=== PATIENT | male | born 1950 | race Caucasian/White ===

== ENCOUNTER 2017-07-29 10:16 | Emergency (ER) | payer OTHER, MEDICARE ==
--- NOTE | 2017-07-29 11:13 | RAD ---
RADIOGRAPH CHEST 1 VIEW: HISTORY: 67-year-old male with chest pain. Discharge of AICD. FINDINGS: There is cardiomegaly. There is no evidence of air space density, pulmonary edema, or pneumothorax. T he lateral costophrenic angles are sharp. IMPRESSION: 1) No acute pulmonary findings. 2) Cardiomegaly without congestive heart failure. 3) Signs of previous coronary artery bypass graft surgery is evidence for coronary atherosclerotic di sease. 4) Multi-lead left subclavian automatic implantable cardioverter/defibrillator. 5) No interval change overall since 10-31-15. POS: Chery
[2017-07-29 11:23] LABS: #Eosinphils 0.4 thou/uL (0.0-0.7); #Lymphocytes 1.8 thou/uL (1.20-3.40); #Monocytes 0.4 thou/uL (0.11-0.59); #Neutrophils 4.9 thou/uL (1.40-6.50); %Basophils 0.5 % (0.0-1.0); %Eosinophils 5.9 % (0.0-10.0); %Lymphocytes 23.5 % (21.0-51.0); %Monocytes 5.7 % (0.0-10.0); Mean Platelet Volume 10.1 fL (7.4-10.4); White Blood Cell (WBC) Count 7.6 thou/uL (4.8-10.8)
[2017-07-29 11:30] LABS: PTT 27.7 SEC (22.9-36.1); Prothrombin Time 12.5 SEC (12.0-14.7)
[2017-07-29 11:50] LABS: Troponin I 0.019 ng/mL (< 0.028)
[2017-07-29 12:00] LABS: Digoxin Less than 0.15 ng/mL (0.8-2.0)
[2017-07-29 12:01] LABS: ALT (SGPT) 22 U/L (8-55); AST (SGOT) 19 U/L (5-34); Alkaline Phosphatase 82 U/L (40-150); Anion Gap 14 mmol/L (10-20); BUN (Urea Nitrogen) 22 mg/dL (8.4-25.7); Bilirubin, Total 0.3 mg/dL (0.2-1.2); CK (CPK) 91 U/L (30-200); Calc. Creatinine Clearance 0 mL/min (70-130); Carbon Dioxide 23 mmol/L (23-31); Chloride 104 mmol/L (98-107); Estimated GFR-MDRD 53; Globulin 3.2 g/dL (2.4-3.5); Lipase 51 U/L (8-78)
== END 2017-07-29 14:24 | disposition home or self-care (01) ==
LOC: ERS 10:16
DX: T82.897A Other specified complication of cardiac prosthetic devices, implants and grafts, initial encounter (principal); E11.9 Type 2 diabetes mellitus without complications; E78.2 Mixed hyperlipidemia; I10 Essential (primary) hypertension; I73.9 Peripheral vascular disease, unspecified; F17.290 Nicotine dependence, other tobacco product, uncomplicated; Z79.84 Long term (current) use of oral hypoglycemic drugs; Z79.82 Long term (current) use of aspirin; Z79.899 Other long term (current) drug therapy
CPT/HCPCS: 36415; 71010; 80053; 80162; 82550; 82553; 83690; 84484; 85025; 85610; 85730; 93005; 94760

== ENCOUNTER 2017-08-19 08:20 | Day surgery (SDC) | payer OTHER, MEDICARE ==
[2017-08-18 16:33] VITALS: BMI 28.3
[2017-08-19 09:46] LABS: #Eosinphils 0.2 thou/uL (0.0-0.7); #Lymphocytes 1.4 thou/uL (1.20-3.40); #Monocytes 0.5 thou/uL (0.11-0.59); #Neutrophils 4.8 thou/uL (1.40-6.50); %Basophils 0.3 % (0.0-1.0); %Eosinophils 3.2 % (0.0-10.0); %Lymphocytes 20.2 % (21.0-51.0); %Monocytes 7.6 % (0.0-10.0); Hematocrit 42.5 % (42.0-52.0); Mean Platelet Volume 8.5 fL (7.4-10.4); Red Blood Cell (RBC) Count 4.43 mill/uL (4.70-6.10); White Blood Cell (WBC) Count 6.9 thou/uL (4.8-10.8)
[2017-08-19 09:57] LABS: PTT 28.4 SEC (22.9-36.1)
[2017-08-19] MEDS ORDERED: CEFAZOLIN/Water 2 GM/20 ML SYRINGE ONE (10:36)
[2017-08-19] MEDS ORDERED: Midazolam HCl 2 mg/2 ml Vial ONE (11:40)
[2017-08-19] MEDS ORDERED: Fentanyl 100 MCG/2 ML VIAL ONE (11:45)
--- NOTE | 2017-08-22 12:23 | EKG ---
Test Reason : PREOP Blood Pressure : / mmHG Vent. Rate : 071 BPM Atrial Rate : 071 BPM P-R Int : 184 ms QRS Dur : 204 ms QT Int : 550 ms P-R-T Axes : 077 -40 108 degrees QTc Int : 597 ms AV sequential or dual chamber electronic pacemaker When compared with ECG of 29-JUL-2017 10:26, (Unconfirmed) Vent. rate has decreased BY 7 BPM Confirmed by GREG CHOUDHARY ([id number]) on 08/22/2017 12:23:29 PM Referred By: GAB Confirmed By:GREG CHOUDHARY
== END 2017-08-19 13:44 | disposition home or self-care (01) ==
LOC: SDC 08:20
PROVIDERS: ATTEND Internal Medicine Cardiovascular Disease
DX: I13.0 Hypertensive heart and chronic kidney disease with heart failure and stage 1 through stage 4 chronic kidney disease, or unspecified chronic kidney disease (principal); I50.22 Chronic systolic (congestive) heart failure; E11.22 Type 2 diabetes mellitus with diabetic chronic kidney disease; N18.3 Chronic kidney disease, stage 3 (moderate); F17.210 Nicotine dependence, cigarettes, uncomplicated; Z79.02 Long term (current) use of antithrombotics/antiplatelets; Z79.82 Long term (current) use of aspirin; Z79.4 Long term (current) use of insulin; Z79.899 Other long term (current) drug therapy; Z95.0 Presence of cardiac pacemaker; Z95.1 Presence of aortocoronary bypass graft; Z98.890 Other specified postprocedural states
CPT/HCPCS: 33264; 85025; 85610; 85730; 93005; 93010; C1882; J2250; J3010; J3490

== ENCOUNTER 2018-01-31 20:30 | Outpatient (CLI) | payer MEDICARE, OTHER | END 2018-01-31 20:31 | disposition home or self-care (01) | LOC: SLEEPLAB 20:30 | PROVIDERS: ATTEND Internal Medicine Critical Care Medicine | DX: G47.33 Obstructive sleep apnea (adult) (pediatric) (principal); G47.31 Primary central sleep apnea; I21.9 Acute myocardial infarction, unspecified; I25.10 Atherosclerotic heart disease of native coronary artery without angina pectoris; I11.0 Hypertensive heart disease with heart failure; I50.9 Heart failure, unspecified | CPT/HCPCS: 95810 ==

== ENCOUNTER 2018-05-31 20:30 | Outpatient (CLI) | payer MEDICARE, OTHER | END 2018-05-31 20:31 | disposition home or self-care (01) | LOC: SLEEPLAB 20:30 | PROVIDERS: ATTEND Internal Medicine Critical Care Medicine | DX: G47.33 Obstructive sleep apnea (adult) (pediatric) (principal); G47.31 Primary central sleep apnea | CPT/HCPCS: 95806 ==

== ENCOUNTER 2018-11-21 12:44 | Emergency (ER) | payer MEDICARE, OTHER ==
--- NOTE | 2018-11-21 14:05 | RAD ---
FPortable chest radiograph: 11/21/2018 COMPARISON: 07/29/2017 HISTORY: Lightheaded FINDINGS: Calcification in the region of the coracoclavicular interspace on the right suggests prior injury, stable. Midline sternotomy wires and mediastinal clips are present. Stable multilead AICD pre sent. Stable prominence of the cardiac silhouette. No pneumothorax, pleural fluid, focal consolidatio n, or alveolar edema. IMPRESSION: Chronic findings as detailed above. No focal consolidation or alveolar edema.
[2018-11-21 14:09] LABS: #Eosinphils 0.3 thou/uL (0.0-0.7); #Lymphocytes 1.6 thou/uL (1.20-3.40); #Monocytes 0.4 thou/uL (0.11-0.59); #Neutrophils 4.2 thou/uL (1.40-6.50); %Basophils 0.2 % (0.0-1.0); %Eosinophils 4.2 % (0.0-10.0); %Lymphocytes 24.7 % (21.0-51.0); %Monocytes 6.6 % (0.0-10.0); %Neutrophils 64.3 % (42.0-75.0); Hemoglobin 13.8 g/dL (14.0-18.0); Mean Corpuscular HGB CONC 34.1 g/dL (32.0-36.0); Mean Corpuscular Hemoglobin 31.8 pg (27.0-31.0); Mean Corpuscular Volume 93.2 fL (78.0-98.0); Mean Platelet Volume 8.9 fL (7.4-10.4); Platelet Count 113 thou/uL (130-400); Red Blood Cell (RBC) Count 4.33 mill/uL (4.70-6.10); White Blood Cell (WBC) Count 6.6 thou/uL (4.8-10.8)
[2018-11-21 14:14] LABS: INR-International Normal Ratio 1.1
[2018-11-21 14:27] LABS: ALT (SGPT) 34 U/L (8-55); AST (SGOT) 50 U/L (5-34); Albumin 4.1 g/dL (3.4-4.8); Alkaline Phosphatase 59 U/L (40-150); Anion Gap 13 mmol/L (10-20); BUN (Urea Nitrogen) 29 mg/dL (8.4-25.7); Bilirubin, Total 0.8 mg/dL (0.2-1.2); Calc. Creatinine Clearance 0 mL/min (70-130); Carbon Dioxide 26 mmol/L (23-31); Chloride 102 mmol/L (98-107); Estimated GFR-MDRD 41; Globulin 2.7 g/dL (2.4-3.5); Glucose 222 mg/dL (80-115); Protein, Total 6.8 g/dL (5.8-8.1); Sodium 137 mmol/L (136-145)
[2018-11-21 14:40] LABS: Bilirubin Negative (Negative); Blood, Urine Negative (Negative); Clarity CLEAR (Clear); Glucose, Urine (Dipstick) Negative (Negative); Leukocyte Negative (Negative); Nitrite Negative (Negative); Protein, Urine (Dipstick) Negative (Neg-Trace); Specific Gravity, Urine 1.009 (1.002-1.036); Urobilinogen 0.2 mg/dL (0.2-1.0)
== END 2018-11-21 17:50 | disposition home or self-care (01) ==
LOC: ERS 12:44
DX: R55 Syncope and collapse (principal); E11.9 Type 2 diabetes mellitus without complications; E78.2 Mixed hyperlipidemia; I10 Essential (primary) hypertension; F17.210 Nicotine dependence, cigarettes, uncomplicated; Z79.899 Other long term (current) drug therapy; Z79.82 Long term (current) use of aspirin; Z79.4 Long term (current) use of insulin
CPT/HCPCS: 71045; 80053; 81003; 83880; 84484; 85025; 85610; 85730; 93005

== ENCOUNTER 2018-12-20 18:37 | Observation (INO) | payer MEDICARE, OTHER ==
[2018-12-20 19:52] VITALS: BMI 28.2
[2018-12-20 20:52] LABS: #Eosinphils 0.3 thou/uL (0.0-0.7); #Monocytes 0.5 thou/uL (0.11-0.59); #Neutrophils 3.4 thou/uL (1.40-6.50); %Basophils 0.7 % (0.0-1.0); %Eosinophils 4.4 % (0.0-10.0); %Monocytes 7.6 % (0.0-10.0); %Neutrophils 55.2 % (42.0-75.0); Hemoglobin 13.4 g/dL (14.0-18.0); Mean Corpuscular HGB CONC 34.7 g/dL (32.0-36.0); Mean Corpuscular Hemoglobin 32.4 pg (27.0-31.0); Mean Corpuscular Volume 93.5 fL (78.0-98.0); Platelet Count 116 thou/uL (130-400); RBC Distribution Width 14.3 % (11.5-14.5); Red Blood Cell (RBC) Count 4.12 mill/uL (4.70-6.10); White Blood Cell (WBC) Count 6.2 thou/uL (4.8-10.8)
[2018-12-20] MEDS ORDERED: HYDROcodone/Acetaminophen 5/325 mg Tablet PO PRN (21:04)
[2018-12-20] MEDS ORDERED: Ondansetron PF 4 MG/2 ML Vial SLOW IVP PRN (21:04)
[2018-12-20] MEDS ORDERED: Milk Of Magnesia 30 ML UDCUP PO PRN (21:04)
[2018-12-20] MEDS ORDERED: Acetaminophen 325 MG TAB PO PRN (21:04)
[2018-12-20] MEDS ORDERED: Fleet Enema 133 ML BOT PR PRN (21:04)
[2018-12-20 21:08] LABS: Anion Gap 13 mmol/L (10-20); BUN (Urea Nitrogen) 26 mg/dL (8.4-25.7); Calc. Creatinine Clearance 44 mL/min (70-130); Carbon Dioxide 26 mmol/L (23-31); Chloride 105 mmol/L (98-107); Estimated GFR-MDRD 38; Glucose 263 mg/dL (80-115); Potassium 3.8 mmol/L (3.5-5.1); Sodium 140 mmol/L (136-145)
[2018-12-20] MEDS: Sodium Chloride 0.9% 1,000 ML IV SCH (21:42)
[2018-12-20] MEDS: HYDROcodone/Acetaminophen 5/325 mg Tablet PO PRN (21:42)
[2018-12-21] MEDS: Sodium Chloride 0.9% 1,000 ML IV SCH ×2 (07:04→18:26)
[2018-12-21 07:11] LABS: #Basophils 0.1 thou/uL (0.0-0.2); #Eosinphils 0.2 thou/uL (0.0-0.7); #Lymphocytes 1.8 thou/uL (1.20-3.40); #Monocytes 0.4 thou/uL (0.11-0.59); #Neutrophils 2.5 thou/uL (1.40-6.50); %Basophils 1.1 % (0.0-1.0); %Eosinophils 4.7 % (0.0-10.0); %Neutrophils 50.2 % (42.0-75.0); Hemoglobin 12.5 g/dL (14.0-18.0); Mean Corpuscular HGB CONC 33.8 g/dL (32.0-36.0); Mean Corpuscular Hemoglobin 31.5 pg (27.0-31.0); Mean Corpuscular Volume 93.5 fL (78.0-98.0); Mean Platelet Volume 8.4 fL (7.4-10.4); Platelet Count 107 thou/uL (130-400); RBC Distribution Width 14.2 % (11.5-14.5); Red Blood Cell (RBC) Count 3.97 mill/uL (4.70-6.10)
[2018-12-21 07:18] LABS: Anion Gap 12 mmol/L (10-20); BUN (Urea Nitrogen) 25 mg/dL (8.4-25.7); Calc. Creatinine Clearance 51 mL/min (70-130); Calcium 8.5 mg/dL (7.8-10.44); Carbon Dioxide 26 mmol/L (23-31); Chloride 109 mmol/L (98-107); Estimated GFR-MDRD 44; Glucose 137 mg/dL (80-115); Potassium 3.6 mmol/L (3.5-5.1); Sodium 143 mmol/L (136-145)
[2018-12-21] MEDS ORDERED: Fentanyl 100 MCG/2 ML VIAL ONE ×2 (07:36→10:11)
[2018-12-21] MEDS ORDERED: Midazolam HCl 2 mg/2 ml Vial ONE (07:37)
[2018-12-21] MEDS ORDERED: Heparin 10,000 UNITS/1 ML VIAL ONE (08:37)
[2018-12-21] MEDS ORDERED: Famotidine/PF 20 mg/2ml Vial SLOW IVP SCH (09:00)
--- NOTE | 2018-12-21 10:29 | OP ---
DATE OF PROCEDURE: 12/21/2018 PREPROCEDURE DIAGNOSIS: Resting pain with severe peripheral vascular disease. POSTPROCEDURE DIAGNOSIS: Resting pain with severe peripheral vascular disease. PROCEDURE PERFORMED: 1. Aortogram. 2. Unilateral aortofemoral runoff. 3. 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 COMPLICATIONS: None. ESTIMATED BLOOD LOSS: Less than 20 mL. TOTAL SEDATION TIME: 40 minutes. DESCRIPTION OF PROCEDURE: The patient was brought one day prior to the procedure for hydration. His initial creatinine was 1.8. After hydration, creatinine decreased to 1.5. The patient was draped and prepped in sterile fashion. Access obtained to right femoral artery under ultrasound guidance. Micropuncture sheath could not be placed due to previous endarterectomy. A radial sheath was then placed successfully. After the Contra catheter was performed (aortogram), a RIM catheter was used to access the contralateral segment. 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 Right lower extremity-the common iliac artery has a stent placed. It is patent. The vessel in the distal common iliac and external iliac appear small. Left lower extremity-there is a stent placed in the common iliac artery. There is stenosis present estimated 50% distal to the previously placed stent on the left. There is otherwise less than 50% stenosis with external iliac and common femoral artery. There was heavy calcification with a very small SFA present and diffuse disease estimated to 70%-100% within the SFA. There was heavy calcification. There was one vessel runoff to the foot via the posterior tibial artery. I discussed case with Dr. Joe Velazquez. He had performed a femoral-popliteal bypass in the past. After noting a gradient just distal to the stented area estimated at 20 mmHg, it was decided that the SFA was too small and too diffusely diseased to proceed with intervention which would include atherectomy. It was decided to proceed with improving the inflow and discussing femoral-popliteal bypass as an outpatient. Heparin was given for anticoagulation. A six-Telugu destination sheath was placed successfully into the contralateral segment. Predilatation performed with a 6 x 40 mm [place] balloon catheter. One inflation performed. This was removed and replaced with an 8 x 40 mm Innova self expanding stent. Previously placed stent was a 10 mm diameter stent in 2006. The vessel did not appear to be 8-9 mm in diameter. The recent stent placed two years ago was an 8 mm stent in a similar region on the contralateral segment. This was successfully deployed. Postdilatation performed with a 6 x 40 mm [place] balloon catheter. This was removed and replaced with a 7 x 30 mm [place] balloon catheter. One inflation performed in the proximal segment of the recently placed stent. There appeared to be excellent apposition with excellent outflow. Job ID: [id number]
[2018-12-21] MEDS: HYDROcodone/Acetaminophen 5/325 mg Tablet PO PRN ×2 (13:34→18:25)
[2018-12-21 15:38] VITALS: BP 113/57; TEMP 97.8
--- NOTE | 2018-12-21 17:34 | DIS ---
DATE OF ADMISSION: 12/20/2018 DATE OF DISCHARGE: 12/21/2018 DISCHARGE DIAGNOSIS: Severe peripheral vascular disease. PROCEDURES: 1. Aortofemoral runoff unilaterally. 2. Aortogram. 3. Successful stent placement to the left common iliac artery with an 8 x 40 mm self-expanding stent post dilated with a 7 x 30 mm [place] balloon catheter. COMPLICATIONS: None. HOSPITAL COURSE: The patient was admitted 1 day prior to procedure for hydration. His initial creatinine was 1.8. On the day of his procedure, his creatinine was decreased to 1.5. The procedure was performed on 12/21/2018. He was found to have severe PAD. The SFA and popliteal artery were not amenable to percutaneous intervention due to diffuse disease present and small vessel. There was a 15- to 20-mm gradient in the common iliac artery. I did discuss case with Dr. Joe Velazquez, who reviewed the films with me. We decided to proceed with stent implantation for better inflow and potential fem-pop bypass in the future. This was performed successfully. The patient received a total of 55 mL of contrast. DISCHARGE MEDICATIONS: 1. Glipizide as prescribed. 2. Torsemide as prescribed. 3. Entresto. 4. Potassium. 5. Nitroglycerin patch. 6. Multivitamin. 7. Insulin as prescribed. 8. Neurontin 300 b.i.d. 9. Fish oil 1000 mg q.a.m. 10. Zetia 10 mg daily. 11. Plavix 75 daily. 12. Coreg 12.5 mg b.i.d. 13. Aspirin 81 daily. 14. Amiodarone 200 mg daily. CONDITION ON DISCHARGE: Stable. Job ID: [id number]
== END 2018-12-21 18:49 | disposition home or self-care (01) ==
LOC: SDC/OP 18:37 → 2SW 19:45 → INTOOBSV 19:45
PROVIDERS: ADMIT Internal Medicine Cardiovascular Disease; ATTEND Internal Medicine Cardiovascular Disease
PROC: 047D3DZ Dilation of Left Common Iliac Artery with Intraluminal Device, Percutaneous Approach (ICD-10-PCS; principal; 2018-12-21)
DX: I70.222 Atherosclerosis of native arteries of extremities with rest pain, left leg (principal); I71.9 Aortic aneurysm of unspecified site, without rupture; Z95.820 Peripheral vascular angioplasty status with implants and grafts; Z79.84 Long term (current) use of oral hypoglycemic drugs; Z79.4 Long term (current) use of insulin; Z79.02 Long term (current) use of antithrombotics/antiplatelets; Z79.82 Long term (current) use of aspirin; Z79.899 Other long term (current) drug therapy
CPT/HCPCS: 37221; 76942; 80048 ×2; 85025 ×2; 85347 ×2; 96360; 96361 ×2; C1725; C1769; G0378; G0379; 36415; 99152; 99153; J1644; J2250; J3010; Q9967

== ENCOUNTER 2019-01-15 10:00 | Inpatient (IN) | payer MEDICARE, OTHER ==
[2019-01-15 10:58] LABS: Hemoglobin 12.3 g/dL (14.0-18.0); Mean Corpuscular HGB CONC 33.5 g/dL (32.0-36.0); Mean Corpuscular Hemoglobin 31.4 pg (27.0-31.0); Mean Corpuscular Volume 93.7 fL (78.0-98.0); Mean Platelet Volume 8.1 fL (7.4-10.4); Platelet Count 132 thou/uL (130-400); RBC Distribution Width 14.1 % (11.5-14.5); White Blood Cell (WBC) Count 8.2 thou/uL (4.8-10.8)
[2019-01-15 11:17] LABS: Anion Gap 14 mmol/L (10-20); BUN (Urea Nitrogen) 38 mg/dL (8.4-25.7); Calc. Creatinine Clearance 0 mL/min (70-130); Calcium 9.4 mg/dL (7.8-10.44); Carbon Dioxide 27 mmol/L (23-31); Chloride 104 mmol/L (98-107); Estimated GFR-MDRD 36; Glucose 237 mg/dL (80-115); Potassium 4.9 mmol/L (3.5-5.1); Sodium 140 mmol/L (136-145)
[2019-01-16] MEDS ORDERED: Heparin 5,000 UNITS/ML VIAL ONE (12:03)
[2019-01-16] MEDS ORDERED: Protamine Sulfate 50 MG/5 ML VIAL ONE (12:03)
[2019-01-16] MEDS ORDERED: ePHEDrine 50 MG/ML VIAL ONE (13:32)
[2019-01-16] MEDS ORDERED: Calcium Chloride 1 GM/10 ML Abboject SYRINGE ONE (13:32)
[2019-01-16] MEDS ORDERED: Heparin 10,000 UNITS/ 10 ML VIAL ONE (13:32)
[2019-01-16] MEDS ORDERED: Ondansetron PF 4 MG/2 ML Vial ONE (13:32)
[2019-01-16] MEDS ORDERED: PROPOFOL 200 MG/20 ML VIAL ONE (13:32)
[2019-01-16] MEDS ORDERED: Rocuronium Bromide 10 MG/ML (10ML VIAL) ONE (13:32)
[2019-01-16] MEDS ORDERED: PHENYLEPHRINE-NS 100 MCG/ML 10 ML SYRINGE ONE (13:32)
[2019-01-16] MEDS ORDERED: Glycopyrrolate 0.2 MG/ML 5 ML SYRINGE ONE (13:32)
[2019-01-16] MEDS ORDERED: Fentanyl 100 MCG/2 ML VIAL ONE ×3 (15:06→18:09)
[2019-01-16] MEDS ORDERED: Acetaminophen 325 MG TAB PO PRN (18:48)
[2019-01-16] MEDS ORDERED: Sodium Chloride 0.9% 1,000 ML IV SCH (18:48)
[2019-01-16] MEDS ORDERED: DOPamine 400 MG/D5W 250 ML 250 ML IVPB PRN (18:48)
[2019-01-16] MEDS ORDERED: Fentanyl 100 MCG/2 ML VIAL SLOW IVP PRN (18:48)
[2019-01-16] MEDS ORDERED: traMADol HCl 50 MG TAB PO PRN (18:48)
[2019-01-16] MEDS ORDERED: Ondansetron PF 4 MG/2 ML Vial IVP PRN (18:48)
[2019-01-16] MEDS ORDERED: Nitroglycerin 50 MG/250 ML BOT 250 ML IVPB PRN (18:48)
[2019-01-16] MEDS ORDERED: ALPRAZolam 0.25 MG TAB PO PRN (18:48)
[2019-01-16 18:54] VITALS: BMI 28.2
[2019-01-16] MEDS: CEFAZOLIN 2 GM in Premix Bag 1 BAG IVPB SCH (19:23)
[2019-01-16] MEDS: Carvedilol 6.25 MG TAB PO SCH (20:11)
[2019-01-16] MEDS: Sacubitril 49 MG/Valsartan 51 MG TABLET PO SCH (20:12)
[2019-01-16] MEDS: Gabapentin 300 MG CAP PO SCH (20:12)
--- NOTE | 2019-01-17 00:21 | OP ---
DATE OF PROCEDURE: 01/16/2019 PREOPERATIVE DIAGNOSIS: Ischemic rest pain with gangrene, left foot. POSTOPERATIVE DIAGNOSIS: Ischemic rest pain with gangrene, left foot. PROCEDURE PERFORMED: Left common and profunda femoral endarterectomy with bovine patch angioplasty, left femoral to infrageniculate popliteal artery bypass with in-situ saphenous vein. ANESTHESIA: General. ESTIMATED BLOOD LOSS: 300 mL. DESCRIPTION OF PROCEDURE: After adequate anesthesia had been obtained, the patient had an ultrasound of his leg performed, following which he was prepped and draped. Endovascular vein harvest of the left greater saphenous vein was performed. Following this, popliteal artery was isolated below the knee through a medial leg incision. The groin incision was then made mobilizing the proximal saphenous vein, dividing it at its junction with the common femoral vein and oversewing it with a 5-0 Prolene suture. The vein was then distended. Branches secured and valvulotome passed. Following this, the patient was heparinized, and the common femoral artery was exposed up to the inguinal ligament and then the external iliac artery. The profunda femoral artery to its first set of branches was mobilized, and all of these vessels were very calcified. After heparinization, a clamp was applied to the external iliac artery into the profunda branches. The long arteriotomy was performed. There was one posterior profunda branch, which was bleeding, and this was clamped. Endarterectomy was then performed dividing the plaque proximally at the inguinal ligament and then bring the plaque up completely into the profunda femoral artery. The area was irrigated, and a bovine patch used to close the arteriotomy. Incision was made in the anterior aspect of the patch, and the saphenous vein proximal end was anastomosed here. Flow was then restored in the groin, and the wound packed. The vein was then brought through its tunnel and then passed posterior to the knee through a separate tunnel, which had been created there. The distal anastomosis was then performed to the popliteal artery, where it was soft with palpable calcification distally as expected from the preoperative evaluation. Following completion of this anastomosis, the clamps were removed. Protamine was given systemically to reverse the heparin, and after obtaining good hemostasis, the wounds were all closed in layers. The patient tolerated the procedure well and was to be taken to the recovery room in guarded condition. Job ID: [id number]
[2019-01-17] MEDS: CEFAZOLIN 2 GM in Premix Bag 1 BAG IVPB SCH (04:30)
[2019-01-17 06:17] LABS: #Lymphocytes 0.9 thou/uL (1.20-3.40); #Monocytes 0.4 thou/uL (0.11-0.59); #Neutrophils 7.6 thou/uL (1.40-6.50); %Eosinophils 0.1 % (0.0-10.0); %Lymphocytes 10.3 % (21.0-51.0); %Monocytes 4.5 % (0.0-10.0); %Neutrophils 85.1 % (42.0-75.0); Hemoglobin 10.9 g/dL (14.0-18.0); Mean Corpuscular Hemoglobin 30.8 pg (27.0-31.0); Mean Corpuscular Volume 93.3 fL (78.0-98.0); Mean Platelet Volume 8.3 fL (7.4-10.4); Platelet Count 140 thou/uL (130-400); RBC Distribution Width 14.1 % (11.5-14.5); Red Blood Cell (RBC) Count 3.55 mill/uL (4.70-6.10)
[2019-01-17 06:36] LABS: Anion Gap 14 mmol/L (10-20); BUN (Urea Nitrogen) 33 mg/dL (8.4-25.7); Calc. Creatinine Clearance 45 mL/min (70-130); Carbon Dioxide 25 mmol/L (23-31); Chloride 105 mmol/L (98-107); Estimated GFR-MDRD 39; Glucose 310 mg/dL (80-115); Potassium 4.3 mmol/L (3.5-5.1); Sodium 140 mmol/L (136-145)
[2019-01-17] MEDS ORDERED: glipiZIDE 10 MG TAB PO SCH (07:30)
[2019-01-17 07:43] VITALS: TEMP 98.2
[2019-01-17] MEDS: Carvedilol 6.25 MG TAB PO SCH (08:35)
[2019-01-17] MEDS: Gabapentin 300 MG CAP PO SCH (08:35)
[2019-01-17] MEDS: Sacubitril 49 MG/Valsartan 51 MG TABLET PO SCH (08:37)
[2019-01-17] MEDS ORDERED: Ezetimibe 10 MG TAB PO SCH (09:00)
[2019-01-17] MEDS ORDERED: Torsemide 20 MG TAB PO SCH (09:00)
[2019-01-17] MEDS ORDERED: Aspirin Chewable 81 MG TAB PO SCH (09:00)
[2019-01-17] MEDS ORDERED: Amiodarone 200 MG TAB PO SCH (09:00)
[2019-01-17] MEDS ORDERED: Potassium Chloride 10 MEQ TAB PO SCH (09:00)
[2019-01-17] MEDS ORDERED: DULoxetine 30 MG CAP PO SCH (09:00)
[2019-01-17] MEDS ORDERED: Clopidogrel Bisulfate 75 MG TAB PO SCH (09:00)
[2019-01-17] MEDS ORDERED: Clopidogrel Bisulfate 75 MG TAB ONE (09:58)
[2019-01-17 11:11] VITALS: BP 116/59
--- NOTE | 2019-01-18 05:41 | DIS ---
DATE OF ADMISSION: 01/16/2019 DATE OF DISCHARGE: 01/17/2019 HOSPITAL COURSE: The patient was brought into the hospital yesterday for a left femoral-popliteal bypass with left common and profunda femoral endarterectomy. His postoperative course was uneventful. His hemoglobin dropped from about 12 to 11. His creatinine remained stable in the 1.75 to 1.9 range. He was having minimal pain with a good Doppler signal in his graft. His foot had improved appearance. He had minimal discomfort. He will be discharged home with wound care instructions and resume home medications. No prescriptions. Job ID: [id number]
== END 2019-01-17 11:10 | disposition home or self-care (01) | DRG 254 ==
LOC: SURG A 01-16 09:46 → CCU 01-16 18:33
PROVIDERS: ADMIT Thoracic Surgery (Cardiothoracic Vascular Surgery); ATTEND Thoracic Surgery (Cardiothoracic Vascular Surgery)
PROC: 04CL0ZZ Extirpation of Matter from Left Femoral Artery, Open Approach (ICD-10-PCS; principal; 2019-01-16)
PROC: 04UL0KZ Supplement Left Femoral Artery with Nonautologous Tissue Substitute, Open Approach (ICD-10-PCS; 2019-01-16)
PROC: 041L09L Bypass Left Femoral Artery to Popliteal Artery with Autologous Venous Tissue, Open Approach (ICD-10-PCS; 2019-01-16)
DX: I70.268 Atherosclerosis of native arteries of extremities with gangrene, other extremity (principal); Z95.1 Presence of aortocoronary bypass graft
CPT/HCPCS: 36416; 80048; 85025; 85027; 86850; 86900; 86901; J0690; J1642; J1644; J2405; J2704; J2720; J3010; J3490

== ENCOUNTER 2019-01-29 18:28 | Inpatient (IN) | payer MEDICARE, OTHER ==
[~2019-01-29 18:28] MED LIST: Heparin 1,000 UNITS/ML VIAL ONE
[2019-01-29] MEDS ORDERED: cefTRIAXone\\ROCEPHIN 1 GM VIAL ONE (19:14)
[2019-01-29] MEDS ORDERED: Acetaminophen 500 MG TAB ONE (19:14)
[2019-01-29] MEDS ORDERED: Sodium Chloride 0.9% 100 ML ONE (19:14)
[2019-01-29 19:40] LABS: #Eosinphils 0.1 thou/uL (0.0-0.7); #Lymphocytes 0.7 thou/uL (1.20-3.40); #Monocytes 0.4 thou/uL (0.11-0.59); #Neutrophils 5.9 thou/uL (1.40-6.50); %Basophils 0.4 % (0.0-1.0); %Eosinophils 1.1 % (0.0-10.0); %Lymphocytes 9.8 % (21.0-51.0); %Neutrophils 82.7 % (42.0-75.0); Mean Corpuscular HGB CONC 33.5 g/dL (32.0-36.0); Mean Corpuscular Hemoglobin 30.9 pg (27.0-31.0); Platelet Count 153 thou/uL (130-400); RBC Distribution Width 14.9 % (11.5-14.5); Red Blood Cell (RBC) Count 2.93 mill/uL (4.70-6.10); White Blood Cell (WBC) Count 7.1 thou/uL (4.8-10.8)
[2019-01-29] MEDS ORDERED: Piperacillin/Tazobactam 4.5 GM VIAL ONE (19:49)
[2019-01-29 20:01] LABS: ALT (SGPT) 20 U/L (8-55); AST (SGOT) 18 U/L (5-34); Albumin 3.4 g/dL (3.4-4.8); Alkaline Phosphatase 65 U/L (40-150); Anion Gap 16 mmol/L (10-20); BUN (Urea Nitrogen) 41 mg/dL (8.4-25.7); Bilirubin, Total 0.6 mg/dL (0.2-1.2); Calc. Creatinine Clearance 0 mL/min (70-130); Calcium 8.7 mg/dL (7.8-10.44); Carbon Dioxide 23 mmol/L (23-31); Chloride 99 mmol/L (98-107); Estimated GFR-MDRD 33; Globulin 2.9 g/dL (2.4-3.5); Glucose 341 mg/dL (80-115); Potassium 3.8 mmol/L (3.5-5.1); Protein, Total 6.3 g/dL (5.8-8.1); Sodium 134 mmol/L (136-145)
[2019-01-29 21:14] LABS: Bilirubin Negative (Negative); Blood, Urine Negative (Negative); Clarity CLEAR (Clear); Glucose, Urine (Dipstick) 100 mg/dL (Negative); Leukocyte Negative (Negative); Nitrite Negative (Negative); Protein, Urine (Dipstick) Negative (Neg-Trace); Specific Gravity, Urine 1.014 (1.002-1.036); Urobilinogen 0.2 mg/dL (0.2-1.0); pH, Urine 5.5 (5.0-9.0)
--- NOTE | 2019-01-29 21:28 | RAD ---
AP VIEW CHEST: HISTORY: Fever. COMPARISON: 11/21/2018. TECHNIQUE: AP view chest is obtained. FINDINGS: AP view chest demonstrates cardiomegaly. Sternotomy wires and mediastinal surgical clips are seen. There is a dual-lead intracardiac defibrillator. no acute intrathoracic abnormalities noted. IMPRESSION: Cardiomegaly. POS: FFK
--- NOTE | 2019-01-29 21:43 | RAD ---
LEFT FOOT THREE VIEWS: HISTORY: Gangrene. TECHNIQUE: AP, lateral, and oblique views of the left foot obtained. FINDINGS: Images demonstrate no evidence of left foot fractures, subluxations, or bony lesions. IMPRESSION: Normal three views left foot. POS: FFK
[2019-01-29 23:31] LABS: Lactic Acid 1.6 mmol/L (0.5-2.2)
[2019-01-29] MEDS ORDERED: Acetaminophen 325 MG TAB PO PRN (23:59)
[2019-01-29] MEDS ORDERED: Dextrose 5% in Water 1,000 ML IV PRN (23:59)
[2019-01-29] MEDS ORDERED: HumaLOG 300 UNITS/3 ML VIAL SC PRN (23:59)
[2019-01-29] MEDS ORDERED: Dextrose 50% Abboject 50 ML SYRINGE SLOW IVP PRN (23:59)
[2019-01-29] MEDS ORDERED: hydrALAZINE 20 MG/ML VIAL SLOW IVP PRN (23:59)
[2019-01-30 00:20] VITALS: BMI 27.6
[2019-01-30] MEDS: Piperacillin/Tazobactam 2.25 GM in Sodium Chloride 0.9% 100 ML IVPB SCH ×4 (01:55→22:03)
[2019-01-30] MEDS ORDERED: Piperacillin/Tazobactam 3.375 GM in Sodium Chloride 0.9% 100 ML IVPB SCH (02:00)
[2019-01-30] MEDS ORDERED: Piperacillin/Tazobactam 4.5 GM in Sodium Chloride 0.9% 100 ML IVPB SCH (02:00)
--- NOTE | 2019-01-30 02:25 | HP ---
PRIMARY CARE PHYSICIAN: Sherly Massey MD CHIEF COMPLAINT: Fever and pain in the left thigh. HISTORY OF PRESENT ILLNESS: Mr. Magana is a pleasant 68-year-old gentleman who presented to the emergency room with complaints of fever last night up to 103. He says all yesterday during the day, he could not get warm and he noticed that the posterior part of his knee was hurting a lot more. He does not really complain of any increase in swelling in his leg per se such as the calf, but the behind the knee was more painful. He has not noticed any drainage from the area where he had a recent fem-pop bypass. No other complaints. He denies any nausea, vomiting, diarrhea. No chest pain or shortness of breath. But due to concern for a possible infection of the area of the recent fem-pop bypass, he is being admitted. REVIEW OF SYSTEMS: CONSTITUTIONAL: He has had subjective fever and objective fever up to a temperature of a 103. He also had subjective chills. No night sweats. No weight loss. HEENT: He has had no headache, but he has had some double vision he says. No sore throat. No rhinorrhea. No neck pain. No adenopathy. PULMONARY: No hemoptysis. No cough. No wheezing. CARDIOVASCULAR: He denies any chest pain. No shortness of breath. No PND. No orthopnea. GASTROINTESTINAL: No abdominal pain. No nausea. No vomiting. No change in bowels. GENITOURINARY: No urinary frequency or hematuria. No hesitancy. NEUROLOGIC: No focal weakness, numbness. No seizures. PSYCHIATRIC: No symptoms of anxiety or depression. SKIN AND INTEGUMENT: The patient says he feels his leg looks better since his recent surgery. He says his foot was actually blue on the top and up to the middle part of the leg, but this is actually improved. He denies any lower extremity pain. PAST MEDICAL HISTORY: History of ischemic cardiomyopathy, diabetes mellitus type 2, chronic systolic heart failure with an EF of about 20%. The last echo was in 2016 and at that time the EF was estimated at 15% to 20%. Hypertension and chronic kidney disease stage 3, as well as peripheral vascular disease. PAST SURGICAL HISTORY: He has had stents to his right leg as well as bypass surgery. He also has a dual-chamber defibrillator. ALLERGIES: NO KNOWN DRUG ALLERGIES. SOCIAL HISTORY: He smokes E-cigarettes. Denies any alcohol use. He is . He says he does not want to be resuscitated; therefore, he is a DNR. FAMILY HISTORY: Significant for heart disease. CURRENT MEDICATIONS: According to his records, these include; 1. Tramadol as needed. 2. Torsemide 20 mg daily. 3. Entresto 97/103 mg twice daily. 4. Potassium chloride 10 mEq daily. 5. Nitroglycerin patch 0.2 daily. 6. Multivitamin once a day. 7. Humalog insulin as directed. 8. Levemir 20 units subcu daily. 9. Glipizide 10 mg twice daily. 10. Gabapentin 300 mg twice daily. 11. Fish oil 1000 mg daily. 12. Zetia 10 mg daily. 13. Duloxetine 30 mg daily. 14. Carvedilol 12.5 mg twice a day. 15. Aspirin 81 mg a day. 16. Amiodarone 200 mg daily. PHYSICAL EXAMINATION: GENERAL: He is alert and oriented. He appears to be in no acute distress. He is well developed and well nourished, but he is chronically ill in appearance. VITAL SIGNS: Blood pressure was 92/61, heart rate 70, respiratory rate of 18, temperature is 98.7, respiratory rate of 18. HEENT: His pupils are equal, round, and reactive. Extraocular muscles are intact. His sclerae anicteric. Throat, no erythema, no exudates. NECK: No adenopathy. No bruits. LUNGS: Clear to auscultation. There is no wheezing, no rales, no rhonchi. CARDIOVASCULAR: He has a normal S1, S2. I did not appreciate an S3 or S4. No murmurs, clicks, or rubs. ABDOMEN: Soft, nontender, and nondistended. Positive for bowel sounds. No rebound, no guarding. EXTREMITIES: He did have some edema in the left calf as well as the left thigh. In the medial part of the thigh in the popliteal area, there is an area of intense induration and it is also tender to palpation. He has palpable dorsalis pedis pulses bilaterally. Good capillary refill bilaterally. NEUROLOGIC: His cranial nerves are intact. Muscle strength is also 5/5 in both his upper and lower extremities. SKIN AND INTEGUMENT: He has an area of a callus on the first toe on the left foot with some desquamation of the skin. The area is also a bit darkened than the rest of the foot. The incision sites are clean. There is no drainage from these. LABORATORY RESULTS: White blood cell count 7.1, hemoglobin 9.0, hematocrit is 26.9, and platelet count is 153. Sodium 134, potassium 3.8, chloride is 99, CO2 is 23 , BUN of 41, creatinine 2.03, glucose is 341. Lactic acid 2.5, repeat was 1.6. Urinalysis was essentially negative. IMAGING STUDIES: He had an x-ray of his foot, which did not show any abnormalities. Also had a chest x-ray, which by my reading shows cardiomegaly, but no increased pulmonary vascular markings. Costophrenic angles are sharp. There is no effusion and we can see the dual chamber defibrillator. ASSESSMENT: 1. This is a pleasant 68-year-old gentleman who presents with fever and recent femoral-popliteal bypass. There is concern for possible infection; however, to me, the incision looks good, there is no drainage; however, there is significant induration in the popliteal area as well as the medial left thigh, this could represent a deep venous thrombosis, therefore, this will need to be ruled out as this can cause fever as well. In the meantime, we will treat him for potential cellulitis. We will also consult Dr. Velazquez to take a look at the wound as well and get a venous Doppler ultrasound of the left lower extremity. 2. Chronic systolic heart failure. He appears to be compensated. We will continue Entresto as well as his usual medications for heart failure. 3. Chronic kidney disease, stage 3. This also appears to be relatively stable. His creatinine is very close to his baseline. 4. Hypertension, currently his blood pressure is on the lower side; however, his family indicates that he typically runs in the mid 90s, systolic. 5. Diabetes mellitus type 2. Continue his home medications as well as a sliding scale insulin. 6. Anemia- this appears to be chronic, but his HGB is lower than what it has been in the recent past- will check iron studies, and a reticulocyte count 7. He will be placed on deep venous thrombosis and gastrointestinal prophylaxis. Job ID: [id number] [facility]
[2019-01-30] MEDS: HumaLOG 300 UNITS/3 ML VIAL SC PRN ×2 (06:34→13:23)
--- NOTE | 2019-01-30 07:31 | ULT ---
LEFT LOWER EXTREMITY DOPPLER VENOUS ULTRASOUND: Date: 01/30/19 INDICATION: Left lower extremity pain and edema; pain predominantly in left knee. Recent fall in bathtub on y with history of stent placed in the left leg 3 weeks ago. TECHNIQUE: Ramírez scale, color Doppler, and vascular duplex with spectral analysis was performed of the deep venou s structures of the left lower extremity. The common femoral vein, superficial femoral vein, proximal greater saphenous vein, proximal greater profunda vein, popliteal, and posterior tibial veins were a ssessed. FINDINGS: Normal compression, flow, and augmentation was seen within the deep venous structures of the left low er extremity. There is nonspecific subcutaneous edema involving the distal left thigh, posterior left knee, and left foreleg. IMPRESSION: 1. No evidence of deep venous thrombosis in the left lower extremity. 2. Subcutaneous edema of the left lower extremity. POS: BH
[2019-01-30 07:54] LABS: Reticulocyte Count 2.9 % (0.5-1.5)
[2019-01-30 07:55] LABS: #Eosinphils 0.1 thou/uL (0.0-0.7); #Lymphocytes 0.8 thou/uL (1.20-3.40); #Monocytes 0.4 thou/uL (0.11-0.59); #Neutrophils 6.9 thou/uL (1.40-6.50); %Eosinophils 0.9 % (0.0-10.0); %Monocytes 5.1 % (0.0-10.0); %Neutrophils 84.1 % (42.0-75.0); Hemoglobin 8.7 g/dL (14.0-18.0); Mean Corpuscular HGB CONC 34.6 g/dL (32.0-36.0); Mean Corpuscular Hemoglobin 31.8 pg (27.0-31.0); Mean Corpuscular Volume 91.9 fL (78.0-98.0); Mean Platelet Volume 8.1 fL (7.4-10.4); Platelet Count 125 thou/uL (130-400); Red Blood Cell (RBC) Count 2.73 mill/uL (4.70-6.10); White Blood Cell (WBC) Count 8.2 thou/uL (4.8-10.8)
[2019-01-30 08:17] LABS: Iron Binding Capacity, Total 241 mcg/dL (261-462)
[2019-01-30 08:18] LABS: Anion Gap 13 mmol/L (10-20); BUN (Urea Nitrogen) 35 mg/dL (8.4-25.7); Calc. Creatinine Clearance 43 mL/min (70-130); Calcium 8.1 mg/dL (7.8-10.44); Carbon Dioxide 22 mmol/L (23-31); Chloride 105 mmol/L (98-107); Estimated GFR-MDRD 38; Glucose 193 mg/dL (80-115); Iron 16 ug/dL (65-175); Potassium 3.5 mmol/L (3.5-5.1); Sodium 136 mmol/L (136-145)
[2019-01-30] MEDS: Heparin 5,000 UNITS/ML VIAL SC SCH ×3 (09:35→22:02)
[2019-01-30] MEDS: HYDROcodone/Acetaminophen 5/325 mg Tablet PO PRN (09:38)
[2019-01-30] MEDS: HYDROcodone/Acetaminophen 10/325 mg Tablet PO PRN ×2 (13:22→22:08)
--- NOTE | 2019-01-30 16:23 | PDOC.PN ---
- Subjective Encounter Start Date: 01/30/19 Encounter Start Time: 16:21 Subjective: Admitted with worsening left lower extremity pain and fever -: Feeling better. - Objective Resuscitation Status - Order Detail: 01/29/19 23:52 Resuscitation Status Routine Resuscitation Status: DNAR: NO Resuscitation Discussed with: patient Vital Signs & Weight: Vital Signs (12 hours) Temp Pulse Resp BP Pulse Ox 01/30/19 08:00 99 01/30/19 07:00 99.9 F H 71 20 99/59 L 99 Weight Weight 166 lb 0.129 oz I&O: 01/29/19 01/30/19 01/31/19 06:59 06:59 06:59 Intake Total 400 Balance 400 Result Diagrams: 01/30/19 07:25 01/30/19 07:25 Additional Labs: Accuchecks 01/30/19 01/30/19 11:31 06:29 POC Glucose 216 H 250 H Phys Exam - Physical Examination Constitutional: NAD afebrile HEENT: PERRLA, moist MMs Neck: no JVD, supple Respiratory: no wheezing, no rhonchi fair air entry with bibasal crackles Cardiovascular: RRR systolic murmur noted Gastrointestinal: soft, non-tender, no distention, positive bowel sounds Left big toes ulcer with some scab as well as surrounding erythema. Medial left lower limb surgical wounds with sorrounding edema and redness Neurological: non-focal, moves all 4 limbs Psychiatric: A&O x 3 Dx/Plan (1) Left leg cellulitis Code(s): L03.116 - CELLULITIS OF LEFT LOWER LIMB Status: Acute (2) Fever Code(s): R50.9 - FEVER, UNSPECIFIED Status: Acute (3) Diabetic foot ulcer Code(s): E11.621 - TYPE 2 DIABETES MELLITUS WITH FOOT ULCER; L97.509 - NON- PRESSURE CHRONIC ULCER OTH PRT UNSP FOOT W UNSP SEVERITY Status: Acute (4) PVD (peripheral vascular disease) Code(s): I73.9 - PERIPHERAL VASCULAR DISEASE, UNSPECIFIED Status: Acute (5) Ischemic cardiomyopathy Code(s): I25.5 - ISCHEMIC CARDIOMYOPATHY Status: Acute (6) Diabetes mellitus Code(s): E11.9 - TYPE 2 DIABETES MELLITUS WITHOUT COMPLICATIONS Status: Acute (7) CHF (congestive heart failure) Code(s): I50.9 - HEART FAILURE, UNSPECIFIED Status: Chronic (8) CKD (chronic kidney disease) stage 3, GFR 30-59 ml/min Status: Chronic - Plan Continue broad spectrum antibiotics. -: Awaiting Cultures and vascular input. -: MRI of left foot contemplated -: Restart homme medications for DM, HTN, CHF -: Monitor renal function. * .
[2019-01-30] MEDS ORDERED: Non-Formulary Item 1 EACH (Insulin Detemir [Levemir Flextouch] 20 UNITS) SQ SCH (21:00)
[2019-01-30] MEDS: Carvedilol 6.25 MG TAB PO SCH (21:59)
[2019-01-30] MEDS: Atorvastatin Calcium 20 MG TAB PO SCH (22:00)
[2019-01-30] MEDS: Gabapentin 300 MG CAP PO SCH (22:00)
[2019-01-30] MEDS: Insulin Glargine 20 UNITS in Pre-Filled Syringe SC SCH (22:01)
[2019-01-30] MEDS: Vancomycin HCl 1 GM in Premix Bag 1 BAG IVPB SCH (22:03)
[2019-01-31] MEDS: Piperacillin/Tazobactam 2.25 GM in Sodium Chloride 0.9% 100 ML IVPB SCH ×5 (02:10→21:15)
[2019-01-31 06:30] LABS: Albumin 2.9 g/dL (3.4-4.8); Anion Gap 10 mmol/L (10-20); BUN (Urea Nitrogen) 22 mg/dL (8.4-25.7); BUN/Creatinine Ratio 15.71; Calc. Creatinine Clearance 55 mL/min (70-130); Calcium 8.2 mg/dL (7.8-10.44); Carbon Dioxide 24 mmol/L (23-31); Chloride 105 mmol/L (98-107); Estimated GFR-MDRD 51; Glucose 154 mg/dL (80-115); Phosphorus 2.4 mg/dL (2.3-4.7); Potassium 3.4 mmol/L (3.5-5.1); Sodium 136 mmol/L (136-145)
[2019-01-31] MEDS: HYDROcodone/Acetaminophen 10/325 mg Tablet PO PRN ×2 (09:26→21:16)
[2019-01-31] MEDS: Carvedilol 6.25 MG TAB PO SCH ×2 (09:28→21:16)
[2019-01-31] MEDS: Torsemide 10 MG TAB PO SCH (09:30)
[2019-01-31] MEDS: Gabapentin 300 MG CAP PO SCH ×2 (09:30→21:16)
[2019-01-31] MEDS: Amiodarone 200 MG TAB PO SCH (09:31)
[2019-01-31] MEDS: Aspirin Chewable 81 MG TAB PO SCH (09:31)
[2019-01-31] MEDS: Clopidogrel Bisulfate 75 MG TAB PO SCH (09:31)
[2019-01-31] MEDS: Heparin 5,000 UNITS/ML VIAL SC SCH ×3 (09:32→21:16)
[2019-01-31] MEDS: HumaLOG 300 UNITS/3 ML VIAL SC PRN (12:11)
--- NOTE | 2019-01-31 13:09 | PDOC.PN ---
- Subjective Encounter Start Date: 01/31/19 Encounter Start Time: 12:00 Subjective: no pain in left LE, was amb in house post procedure on 01/16 -: no sob or chest pain - Objective Resuscitation Status - Order Detail: 01/29/19 23:52 Resuscitation Status Routine Resuscitation Status: DNAR: NO Resuscitation Discussed with: patient MAR Reviewed: Yes Vital Signs & Weight: Vital Signs (12 hours) Temp Pulse Resp BP BP BP Pulse Ox 01/31/19 12:00 97.3 F L 70 18 92/58 L 97 01/31/19 09:28 97/61 01/31/19 08:00 97.8 F 76 18 97/61 95 01/31/19 06:00 99 F 73 18 105/70 98 Weight Weight 166 lb 0.129 oz I&O: 01/30/19 01/31/19 02/01/19 06:59 06:59 06:59 Intake Total 520 480 Balance 520 480 Result Diagrams: 01/30/19 07:25 01/31/19 05:56 Additional Labs: Accuchecks 01/31/19 01/30/19 01/30/19 11:23 19:34 16:50 POC Glucose 245 H 246 H 157 H Phys Exam - Physical Examination HEENT: PERRLA, moist MMs Neck: no JVD, supple Respiratory: no wheezing, no rales Cardiovascular: RRR, no significant murmur Gastrointestinal: soft, non-tender, positive bowel sounds post procedure edema of left LE, surgical scar looks clean Neurological: non-focal, moves all 4 limbs Psychiatric: normal affect, A&O x 3 Dx/Plan (1) Diabetes mellitus Code(s): E11.9 - TYPE 2 DIABETES MELLITUS WITHOUT COMPLICATIONS Status: Chronic Qualifiers: Diabetes mellitus type: type 2 Diabetes mellitus skilled nursing insulin use: with termination clerk use Diabetes mellitus complication status: with kidney complications Diabetes mellitus complication detail: with chronic kidney disease Chronic kidney disease stage: stage 3 (moderate) Qualified Code(s): E11.22 - Type 2 diabetes mellitus with diabetic chronic kidney disease; N18.3 - Chronic kidney disease, stage 3 (moderate); Z79.4 - custodial (current) use of insulin (2) Ischemic cardiomyopathy Code(s): I25.5 - ISCHEMIC CARDIOMYOPATHY Status: Chronic Comment: with ef of 15%, graft to lad is patent per cath 2016 (3) PVD (peripheral vascular disease) Code(s): I73.9 - PERIPHERAL VASCULAR DISEASE, UNSPECIFIED Status: Chronic Comment: b/l fempop, angioplasty, right 12/20/2016, left on 01/16/2019. Has prior stent to left side (4) V-tach Code(s): I47.2 - VENTRICULAR TACHYCARDIA Status: Chronic Comment: on amiodarone (5) CAD (coronary artery disease) Code(s): I25.10 - ATHSCL HEART DISEASE OF [place] CORONARY ARTERY W/O ANG PCTRS Status: Chronic Qualifiers: Coronary Disease-Associated Artery/Lesion type: bypass graft [place] vs. transplanted heart: [place] heart Associated angina: without angina Qualified Code(s): I25.810 - Atherosclerosis of coronary artery bypass graft(s) without angina pectoris (6) CHF (congestive heart failure) Code(s): I50.9 - HEART FAILURE, UNSPECIFIED Status: Chronic Qualifiers: Heart failure type: combined systolic and diastolic Comment: class B, ef of 15% (7) CKD (chronic kidney disease) stage 3, GFR 30-59 ml/min Status: Chronic (8) STEPHANIE (acute kidney injury) Code(s): N17.9 - ACUTE KIDNEY FAILURE, UNSPECIFIED Status: Resolved - Plan hemostable -: no dvt in left LE -: may dc home if ok with , has post op edema, scar looks good -: no signs of cellulits in left LE, has chronic ulcers..gr toe, velazquez, 5th toe -: is on asp, plavix, lipitor, amiodarone, coreg, zetia, fish oil, lantus, gli * . Review of Systems - Medications/Allergies Allergies/Adverse Reactions: Allergies Allergy/AdvReac Type Severity Reaction Status Date / Time No Known Drug Allergies Allergy Verified 01/16/19 19:11 Medications: Current Medications Acetaminophen (Tylenol) 650 mg PO Q4H PRN PRN Reason: Headache/Fever/Mild Pain (1-3) Hydrocodone Bitart/Acetaminophen ([place] 10/325) 1 tab PO Q4H PRN PRN Reason: Moderate Pain (4-6) Last Admin: 01/31/19 09:26 Dose: 1 tab Hydrocodone Bitart/Acetaminophen ([place] 5/325) 1 tab PO Q4H PRN PRN Reason: Moderate Pain (4-6) Last Admin: 01/30/19 09:38 Dose: 1 tab Amiodarone HCl (Cordarone) 200 mg PO QAM [facility] Last Admin: 01/31/19 09:31 Dose: 200 mg Aspirin (Aspirin Chewable) 81 mg PO DAILY [facility] Last Admin: 01/31/19 09:31 Dose: 81 mg Atorvastatin Calcium (Lipitor) 20 mg PO [facility] Last Admin: 01/30/19 22:00 Dose: 20 mg Carvedilol (Coreg) 12.5 mg PO BID [facility] Last Admin: 01/31/19 09:28 Dose: 12.5 mg Clopidogrel Bisulfate (Plavix) 75 mg PO DAILY [facility] Last Admin: 01/31/19 09:31 Dose: 75 mg Dextrose/Water (Dextrose 50%) 25 gm SLOW IVP PRN PRN PRN Reason: Hypoglycemia Gabapentin (Neurontin) 300 mg PO BID [facility] Last Admin: 01/31/19 09:30 Dose: 300 mg Glucagon (Glucagon) 1 mg IM PRN PRN PRN Reason: Hypoglycemia Heparin Sodium (Porcine) (Heparin) 5,000 units SC TID [facility] Last Admin: 01/31/19 09:32 Dose: 5,000 units Hydralazine HCl (Apresoline) 10 mg SLOW IVP Q4H PRN PRN Reason: SBP > 180 and HR < 70 Dextrose/Water (D5w) 1,000 mls @ 0 mls/hr IV .Q0M PRN PRN Reason: Hypoglycemia Vancomycin HCl 1 gm/ Device 200 mls @ 200 mls/hr IVPB Q24HR@2100 [facility] Last Admin: 01/30/19 22:03 Dose: 200 mls Piperacillin Sod/Tazobactam (Sod 2.25 gm/ Sodium Chloride) 100 mls @ 200 mls/ hr IVPB 0200,0800,1400,2000 [facility] Last Admin: 01/31/19 09:25 Dose: 100 mls Insulin Glargine 20 units/ (Miscellaneous Medication) 0.2 mls @ 0 mls/hr SC [facility] Last Admin: 01/30/19 22:01 Dose: 0.2 mls Insulin Human Lispro (Humalog) 0 units SC .MODERATE SLIDING SC PRN PRN Reason: Moderate Correctional Scale Last Admin: 01/31/19 12:11 Dose: 4 unit Insulin Human Lispro (Humalog) 0 units SC .BEDTIME SLIDING SC PRN PRN Reason: Bedtime Correctional Scale Miscellaneous Medication (Pharmacy To Dose) 1 each IVPB PRN PRN PRN Reason: Pharmacy to dose Torsemide (Demadex) 10 mg PO [facility] Last Admin: 01/31/19 09:30 Dose: Not Given
[2019-01-31 20:38] LABS: Vancomycin, Trough 8.1 ug/mL
[2019-01-31] MEDS: Insulin Glargine 20 UNITS in Pre-Filled Syringe SC SCH (21:14)
[2019-01-31] MEDS: Atorvastatin Calcium 20 MG TAB PO SCH (21:15)
[2019-01-31] MEDS: Vancomycin HCl 1 GM in Premix Bag 1 BAG IVPB SCH (22:23)
[2019-02-01] MEDS: Piperacillin/Tazobactam 2.25 GM in Sodium Chloride 0.9% 100 ML IVPB SCH ×4 (02:44→20:20)
[2019-02-01] MEDS: HYDROcodone/Acetaminophen 10/325 mg Tablet PO PRN ×4 (02:50→21:28)
[2019-02-01] MEDS: HumaLOG 300 UNITS/3 ML VIAL SC PRN ×3 (06:01→17:53)
[2019-02-01] MEDS: Gabapentin 300 MG CAP PO SCH ×2 (08:49→20:23)
[2019-02-01] MEDS: Carvedilol 6.25 MG TAB PO SCH ×2 (08:49→20:22)
[2019-02-01] MEDS: Clopidogrel Bisulfate 75 MG TAB PO SCH (08:49)
[2019-02-01] MEDS: Aspirin Chewable 81 MG TAB PO SCH (08:50)
[2019-02-01] MEDS: Heparin 5,000 UNITS/ML VIAL SC SCH ×3 (08:50→20:23)
[2019-02-01] MEDS: Torsemide 10 MG TAB PO SCH (08:50)
[2019-02-01] MEDS: Amiodarone 200 MG TAB PO SCH (08:50)
[2019-02-01] MEDS: Vancomycin HCl 1 GM in Premix Bag 1 BAG IVPB SCH ×2 (09:29→21:27)
--- NOTE | 2019-02-01 11:58 | PDOC.PN ---
- Subjective Encounter Start Date: 02/01/19 Encounter Start Time: 11:00 Subjective: no fever, feels better - Objective Resuscitation Status - Order Detail: 01/29/19 23:52 Resuscitation Status Routine Resuscitation Status: DNAR: NO Resuscitation Discussed with: patient RAGINI Reviewed: Yes Vital Signs & Weight: Vital Signs (12 hours) Temp Pulse Resp BP BP Pulse Ox 02/01/19 11:09 97.4 F L 72 16 98/61 100 02/01/19 08:49 110/73 02/01/19 07:15 97.5 F L 72 16 110/73 100 Weight Weight 166 lb 0.129 oz I&O: 01/31/19 02/01/19 02/02/19 06:59 06:59 06:59 Intake Total 520 1060 240 Output Total 1780 Balance 520 -720 240 Result Diagrams: 01/30/19 07:25 01/31/19 05:56 Additional Labs: Accuchecks 02/01/19 02/01/19 01/31/19 11:10 04:25 20:29 POC Glucose 207 H 186 H 187 H 01/31/19 16:34 POC Glucose 154 H Phys Exam - Physical Examination HEENT: PERRLA, moist MMs Neck: no JVD, supple Respiratory: no wheezing, no rales Cardiovascular: RRR, no significant murmur Gastrointestinal: soft, non-tender, positive bowel sounds Musculoskeletal: pulses present Neurological: non-focal, moves all 4 limbs Psychiatric: A&O x 3 Dx/Plan (1) Cellulitis of left lower extremity Code(s): L03.116 - CELLULITIS OF LEFT LOWER LIMB Status: Acute (2) Diabetes mellitus Code(s): E11.9 - TYPE 2 DIABETES MELLITUS WITHOUT COMPLICATIONS Status: Chronic Qualifiers: Diabetes mellitus type: type 2 Diabetes mellitus half-way insulin use: with half-way use Diabetes mellitus complication status: with kidney complications Diabetes mellitus complication detail: with chronic kidney disease Chronic kidney disease stage: stage 3 (moderate) Qualified Code(s): E11.22 - Type 2 diabetes mellitus with diabetic chronic kidney disease; N18.3 - Chronic kidney disease, stage 3 (moderate); Z79.4 - shelter (current) use of insulin (3) Ischemic cardiomyopathy Code(s): I25.5 - ISCHEMIC CARDIOMYOPATHY Status: Chronic Comment: with ef of 15%, graft to lad is patent per cath 2016 (4) PVD (peripheral vascular disease) Code(s): I73.9 - PERIPHERAL VASCULAR DISEASE, UNSPECIFIED Status: Chronic Comment: b/l fempop, angioplasty, right 12/20/2016, left on 01/16/2019. Has prior stent to left side (5) V-tach Code(s): I47.2 - VENTRICULAR TACHYCARDIA Status: Chronic Comment: on amiodarone (6) CAD (coronary artery disease) Code(s): I25.10 - ATHSCL HEART DISEASE OF [place] CORONARY ARTERY W/O ANG PCTRS Status: Chronic Qualifiers: Coronary Disease-Associated Artery/Lesion type: bypass graft [place] vs. transplanted heart: [place] heart Associated angina: without angina Qualified Code(s): I25.810 - Atherosclerosis of coronary artery bypass graft(s) without angina pectoris (7) CHF (congestive heart failure) Code(s): I50.9 - HEART FAILURE, UNSPECIFIED Status: Chronic Qualifiers: Heart failure type: combined systolic and diastolic Comment: class B, ef of 15% (8) CKD (chronic kidney disease) stage 3, GFR 30-59 ml/min Status: Chronic (9) STEPHANIE (acute kidney injury) Code(s): N17.9 - ACUTE KIDNEY FAILURE, UNSPECIFIED Status: Resolved - Plan hemostable -: is on vanc and zosyn -: continue asp, plavix, amiodarone, lipitor, zetia, fish oil, coreg, -: levemir and glipizide -: to ambulate as tolerated * . Review of Systems - Medications/Allergies Allergies/Adverse Reactions: Allergies Allergy/AdvReac Type Severity Reaction Status Date / Time No Known Drug Allergies Allergy Verified 01/16/19 19:11 Medications: Current Medications Acetaminophen (Tylenol) 650 mg PO Q4H PRN PRN Reason: Headache/Fever/Mild Pain (1-3) Hydrocodone Bitart/Acetaminophen ([place] 10/325) 1 tab PO Q4H PRN PRN Reason: Moderate Pain (4-6) Last Admin: 02/01/19 09:28 Dose: 1 tab Hydrocodone Bitart/Acetaminophen ([place] 5/325) 1 tab PO Q4H PRN PRN Reason: Moderate Pain (4-6) Last Admin: 01/30/19 09:38 Dose: 1 tab Amiodarone HCl (Cordarone) 200 mg PO QAM [facility] Last Admin: 02/01/19 08:50 Dose: 200 mg Aspirin (Aspirin Chewable) 81 mg PO DAILY [facility] Last Admin: 02/01/19 08:50 Dose: 81 mg Atorvastatin Calcium (Lipitor) 20 mg PO [facility] Last Admin: 01/31/19 21:15 Dose: 20 mg Carvedilol (Coreg) 12.5 mg PO BID [facility] Last Admin: 02/01/19 08:49 Dose: 12.5 mg Clopidogrel Bisulfate (Plavix) 75 mg PO DAILY [facility] Last Admin: 02/01/19 08:49 Dose: 75 mg Dextrose/Water (Dextrose 50%) 25 gm SLOW IVP PRN PRN PRN Reason: Hypoglycemia Gabapentin (Neurontin) 300 mg PO BID [facility] Last Admin: 02/01/19 08:49 Dose: 300 mg Glucagon (Glucagon) 1 mg IM PRN PRN PRN Reason: Hypoglycemia Heparin Sodium (Porcine) (Heparin) 5,000 units SC TID [facility] Last Admin: 02/01/19 08:50 Dose: 5,000 units Hydralazine HCl (Apresoline) 10 mg SLOW IVP Q4H PRN PRN Reason: SBP > 180 and HR < 70 Dextrose/Water (D5w) 1,000 mls @ 0 mls/hr IV .Q0M PRN PRN Reason: Hypoglycemia Piperacillin Sod/Tazobactam (Sod 2.25 gm/ Sodium Chloride) 100 mls @ 200 mls/ hr IVPB 0200,0800,1400,2000 [facility] Last Admin: 02/01/19 08:48 Dose: 100 mls Insulin Glargine 20 units/ (Miscellaneous Medication) 0.2 mls @ 0 mls/hr SC [facility] Last Admin: 01/31/19 21:14 Dose: 0.2 mls Vancomycin HCl 1 gm/ Device 200 mls @ 200 mls/hr IVPB 0900,2100 [facility] Last Admin: 02/01/19 09:29 Dose: 200 mls Insulin Human Lispro (Humalog) 0 units SC .MODERATE SLIDING SC PRN PRN Reason: Moderate Correctional Scale Last Admin: 02/01/19 11:48 Dose: 4 unit Insulin Human Lispro (Humalog) 0 units SC .BEDTIME SLIDING SC PRN PRN Reason: Bedtime Correctional Scale Miscellaneous Medication (Pharmacy To Dose) 1 each IVPB PRN PRN PRN Reason: Pharmacy to dose Torsemide (Demadex) 10 mg PO [facility] Last Admin: 02/01/19 08:50 Dose: 10 mg
[2019-02-01] MEDS: Atorvastatin Calcium 20 MG TAB PO SCH (20:22)
[2019-02-01] MEDS: Insulin Glargine 20 UNITS in Pre-Filled Syringe SC SCH (20:28)
[2019-02-02] MEDS: Piperacillin/Tazobactam 2.25 GM in Sodium Chloride 0.9% 100 ML IVPB SCH ×4 (01:56→20:28)
[2019-02-02] MEDS: HYDROcodone/Acetaminophen 10/325 mg Tablet PO PRN ×3 (04:34→19:09)
[2019-02-02] MEDS: HumaLOG 300 UNITS/3 ML VIAL SC PRN ×2 (04:36→12:31)
[2019-02-02] MEDS: Carvedilol 6.25 MG TAB PO SCH ×2 (08:08→20:29)
[2019-02-02] MEDS: Heparin 5,000 UNITS/ML VIAL SC SCH ×3 (08:08→20:30)
[2019-02-02] MEDS: Gabapentin 300 MG CAP PO SCH ×2 (08:08→20:29)
[2019-02-02] MEDS: Amiodarone 200 MG TAB PO SCH (08:08)
[2019-02-02] MEDS: Aspirin Chewable 81 MG TAB PO SCH (08:08)
[2019-02-02] MEDS: Clopidogrel Bisulfate 75 MG TAB PO SCH (08:08)
[2019-02-02 08:34] LABS: Vancomycin, Trough 19.8 ug/mL
[2019-02-02] MEDS: Torsemide 10 MG TAB PO SCH (09:00)
[2019-02-02] MEDS: Vancomycin HCl 1 GM in Premix Bag 1 BAG IVPB SCH ×2 (10:18→20:30)
--- NOTE | 2019-02-02 18:40 | PDOC.PN ---
- Subjective Encounter Start Date: 02/02/19 Encounter Start Time: 10:00 Pt seen for followup re: left toe infection. Says he feels better. - Objective Resuscitation Status - Order Detail: 01/29/19 23:52 Resuscitation Status Routine Resuscitation Status: DNAR: NO Resuscitation Discussed with: patient RAGINI Reviewed: Yes Vital Signs & Weight: Vital Signs (12 hours) Temp Pulse Resp BP BP Pulse Ox 02/02/19 08:08 112/71 99 02/02/19 07:28 97.5 F L 69 16 112/71 99 Weight Admit Weight 166 lb 0.129 oz Weight 166 lb 0.129 oz I&O: 02/01/19 02/02/19 02/03/19 06:59 06:59 06:59 Intake Total 1060 2170 540 Output Total 1780 1200 Balance -720 970 540 Result Diagrams: 01/30/19 07:25 01/31/19 05:56 Additional Labs: Accuchecks 02/02/19 02/02/19 02/02/19 17:57 11:51 04:28 POC Glucose 97 239 H 192 H 02/01/19 20:37 POC Glucose 168 H Labs reviewed by me Phys Exam - Physical Examination Constitutional: NAD HEENT: moist MMs Neck: supple Respiratory: clear to auscultation bilateral Cardiovascular: RRR Gastrointestinal: soft Neurological: moves all 4 limbs Psychiatric: normal affect Deviation from normal: ? left toe cellulitis Dx/Plan (1) Cellulitis of left lower extremity Code(s): L03.116 - CELLULITIS OF LEFT LOWER LIMB Status: Acute Comment: continue IV Zosyn (2) PVD (peripheral vascular disease) Code(s): I73.9 - PERIPHERAL VASCULAR DISEASE, UNSPECIFIED Status: Chronic Comment: s/p b/l fempop, angioplasty (3) CAD (coronary artery disease) Code(s): I25.10 - ATHSCL HEART DISEASE OF [place] CORONARY ARTERY W/O ANG PCTRS Status: Chronic Qualifiers: Coronary Disease-Associated Artery/Lesion type: bypass graft [place] vs. transplanted heart: [place] heart Associated angina: without angina Qualified Code(s): I25.810 - Atherosclerosis of coronary artery bypass graft(s) without angina pectoris Comment: stable (4) CHF (congestive heart failure) Code(s): I50.9 - HEART FAILURE, UNSPECIFIED Status: Chronic Qualifiers: Heart failure type: combined systolic and diastolic Comment: stable, NYHA Class 2 (5) CKD (chronic kidney disease) stage 3, GFR 30-59 ml/min Status: Chronic Comment: stable - Plan continue antibiotics, out of bed/ambulate * . replace potassium Review of Systems - Review of Systems Respiratory: negative: Cough, Shortness of Breath, SOB with Excertion, Pleuritic Pain, Wheezing Cardiovascular: negative: chest pain, palpitations, orthopnea, paroxysmal nocturnal dyspnea, edema, light headedness - Medications/Allergies Allergies/Adverse Reactions: Allergies Allergy/AdvReac Type Severity Reaction Status Date / Time No Known Drug Allergies Allergy Verified 01/16/19 19:11 Medications: Current Medications Acetaminophen (Tylenol) 650 mg PO Q4H PRN PRN Reason: Headache/Fever/Mild Pain (1-3) Hydrocodone Bitart/Acetaminophen ([place] 10/325) 1 tab PO Q4H PRN PRN Reason: Moderate Pain (4-6) Last Admin: 02/02/19 10:31 Dose: 1 tab Hydrocodone Bitart/Acetaminophen ([place] 5/325) 1 tab PO Q4H PRN PRN Reason: Moderate Pain (4-6) Last Admin: 01/30/19 09:38 Dose: 1 tab Amiodarone HCl (Cordarone) 200 mg PO QAM [facility] Last Admin: 02/02/19 08:08 Dose: 200 mg Aspirin (Aspirin Chewable) 81 mg PO DAILY [facility] Last Admin: 02/02/19 08:08 Dose: 81 mg Atorvastatin Calcium (Lipitor) 20 mg PO HS [facility] Last Admin: 02/01/19 20:22 Dose: 20 mg Carvedilol (Coreg) 12.5 mg PO BID [facility] Last Admin: 02/02/19 08:08 Dose: 12.5 mg Clopidogrel Bisulfate (Plavix) 75 mg PO DAILY [facility] Last Admin: 02/02/19 08:08 Dose: 75 mg Dextrose/Water (Dextrose 50%) 25 gm SLOW IVP PRN PRN PRN Reason: Hypoglycemia Gabapentin (Neurontin) 300 mg PO BID [facility] Last Admin: 02/02/19 08:08 Dose: 300 mg Glucagon (Glucagon) 1 mg IM PRN PRN PRN Reason: Hypoglycemia Heparin Sodium (Porcine) (Heparin) 5,000 units SC TID [facility] Last Admin: 02/02/19 14:13 Dose: 5,000 units Hydralazine HCl (Apresoline) 10 mg SLOW IVP Q4H PRN PRN Reason: SBP > 180 and HR < 70 Dextrose/Water (D5w) 1,000 mls @ 0 mls/hr IV .Q0M PRN PRN Reason: Hypoglycemia Piperacillin Sod/Tazobactam (Sod 2.25 gm/ Sodium Chloride) 100 mls @ 200 mls/ hr IVPB 0200,0800,1400,2000 [facility] Last Admin: 02/02/19 14:12 Dose: 100 mls Insulin Glargine 20 units/ (Miscellaneous Medication) 0.2 mls @ 0 mls/hr SC HS [facility] Last Admin: 02/01/19 20:28 Dose: 0.2 mls Vancomycin HCl 1 gm/ Device 200 mls @ 200 mls/hr IVPB 0900,2100 [facility] Last Admin: 02/02/19 10:18 Dose: 200 mls Insulin Human Lispro (Humalog) 0 units SC .MODERATE SLIDING SC PRN PRN Reason: Moderate Correctional Scale Last Admin: 02/02/19 12:31 Dose: 4 unit Insulin Human Lispro (Humalog) 0 units SC .BEDTIME SLIDING SC PRN PRN Reason: Bedtime Correctional Scale Miscellaneous Medication (Pharmacy To Dose) 1 each IVPB PRN PRN PRN Reason: Pharmacy to dose Torsemide (Demadex) 10 mg PO QAM [facility] Last Admin: 02/02/19 09:00 Dose: 10 mg
[2019-02-02] MEDS ORDERED: Potassium Chloride 20 MEQ TAB PO SCH (19:00)
[2019-02-02] MEDS: Atorvastatin Calcium 20 MG TAB PO SCH (20:29)
[2019-02-02] MEDS: Insulin Glargine 20 UNITS in Pre-Filled Syringe SC SCH (20:30)
[2019-02-02] MEDS: Temazepam 15 MG CAP PO PRN (22:47)
[2019-02-03] MEDS: Piperacillin/Tazobactam 2.25 GM in Sodium Chloride 0.9% 100 ML IVPB SCH ×4 (02:41→19:46)
[2019-02-03] MEDS: HYDROcodone/Acetaminophen 10/325 mg Tablet PO PRN ×3 (06:33→17:46)
[2019-02-03] MEDS: Torsemide 10 MG TAB PO SCH (07:52)
[2019-02-03] MEDS: Aspirin Chewable 81 MG TAB PO SCH (07:52)
[2019-02-03] MEDS: Heparin 5,000 UNITS/ML VIAL SC SCH ×3 (07:53→19:46)
[2019-02-03] MEDS: Clopidogrel Bisulfate 75 MG TAB PO SCH (07:53)
[2019-02-03] MEDS: Gabapentin 300 MG CAP PO SCH ×2 (07:53→19:47)
[2019-02-03] MEDS: Carvedilol 6.25 MG TAB PO SCH ×2 (07:53→19:50)
[2019-02-03] MEDS: Amiodarone 200 MG TAB PO SCH (07:53)
[2019-02-03] MEDS: Vancomycin HCl 1 GM in Premix Bag 1 BAG IVPB SCH ×2 (09:08→20:56)
[2019-02-03] MEDS: HumaLOG 300 UNITS/3 ML VIAL SC PRN ×2 (12:31→17:46)
--- NOTE | 2019-02-03 17:53 | CON ---
DATE OF CONSULTATION: 02/03/2019 REASON FOR CONSULTATION: Peripheral vascular disease with inflammatory changes, left foot and fever. HISTORY OF PRESENT ILLNESS: A 68-year-old known to me from prior visits when he was treated for osteomyelitis of the right heel, which healed properly. He has quite severe peripheral vascular disease, had previous stent in the left proximal femoral artery, and due to persistence of insufficiency, Dr. Velazquez performed a femoral-popliteal bypass with good results. However, he did develop fever and was admitted, started on broad-spectrum coverage and there has been clear-cut improvement since. He is feeling better now. No headaches. No change in visual symptoms, sore throat, odynophagia, or dysphagia. No chest pain or dyspnea. No abdominal pain. Voiding without difficulty. No diarrhea. Much pain in the feet. MEDICAL HISTORY: Peripheral vascular disease, ischemic cardiomyopathy, type 2 diabetes, CHF with EF 20%, renal insufficiency stage 3, and PVD with recent revascularizations. ALLERGIES: NONE. SOCIAL HISTORY: Smokes e-cigarettes. Lives with in [place]. FAMILY HISTORY: Coronary artery disease. CURRENT MEDICATIONS: 1. Tylenol. 2. [place]. 3. Cordarone. 4. Aspirin. 5. Lipitor. 6. Coreg. 7. Plavix. 8. Neurontin. 9. Apresoline. 10. Insulin. 11. Zosyn. 12. Vancomycin. PHYSICAL EXAMINATION: VITAL SIGNS: T-max 99.3, BP 97/61, and pulse 68. SKIN: Shows area of necrosis of the medial aspect of the distal left first toe with dark eschar covering the base of the wound, which measures about 2 x 3.5 cm. There is a faint erythema in the left foot, extending from the tip to the mid foot region. Peripheral IV access. Voiding spontaneously in the urinal. No lymphadenopathy or alopecia. HEENT: Ocular movements conjugate. Oral cavity with only a few remaining teeth. Oral cavity otherwise normal. NECK: Supple. No jugular vein distention or carotid bruits. No thyromegaly. LUNGS: Symmetric clear breath sounds. S1 and S2. Regular rate. No S3 or S4. ABDOMEN: Soft, not distended or tender. No ascites. No bladder distention. No genital abnormalities. EXTREMITIES: Pulses are 1+ popliteal and faintly palpable in dorsalis pedis. Cap refill normal. Able to move extremities on command. NEUROLOGIC: Cognitive function appears to be intact. LABORATORY DATA: White cell count 7.1 and 8.2, hemoglobin 9, platelets 153 and 125 with 84% neutrophils. Creatinine 1.40, sodium 136, potassium 3.4, bilirubin 0.6, AST 18, ALT 20, alkaline phosphatase 65, albumin 2.9. Urinalysis was normal except for glycosuria. Vancomycin trough 19.8. Microbiology with negative blood cultures and urine culture thus far. Foot x-ray from three days ago, no bony abnormalities. ASSESSMENT: Type 2 diabetes, stage 3 renal insufficiency, peripheral vascular disease with recent femoral-popliteal bypass after a proximal stent placement, fever with inflammatory changes in left foot with area of localized gangrene with unknown depth. DISCUSSION: At this point, we will continue with Zosyn, vancomycin and eventual transition to oral antimicrobial therapy. Depending on response, may decide to continue treatment for protracted periods of time. He may have osteomyelitis, although it was not identified on x-ray. Cannot run an MRI because of his AICD, we will check a bone scan instead. If there is uptake, then we will probably have to treat him with a PICC line for protracted periods of time. Job ID: [id number]
--- NOTE | 2019-02-03 18:51 | PDOC.PN ---
- Subjective Encounter Start Date: 02/03/19 Encounter Start Time: 10:40 Pt seen for followup re: left foot infection. Denies chest pain, shortness of breath, fevers or chills. - Objective Resuscitation Status - Order Detail: 01/29/19 23:52 Resuscitation Status Routine Resuscitation Status: DNAR: NO Resuscitation Discussed with: patient Vital Signs & Weight: Vital Signs (12 hours) Temp Pulse Resp BP BP Pulse Ox 02/03/19 16:44 97.4 F L 69 18 102/66 98 02/03/19 11:31 98.0 F 68 20 97/61 100 02/03/19 07:53 116/72 99 02/03/19 07:17 97.5 F L 80 20 116/72 99 Weight Admit Weight 166 lb 0.129 oz Weight 166 lb 0.129 oz I&O: 02/02/19 02/03/19 02/04/19 06:59 06:59 06:59 Intake Total 2170 540 540 Output Total 1200 Balance 970 540 540 Result Diagrams: 01/30/19 07:25 01/31/19 05:56 Additional Labs: Accuchecks 02/03/19 02/03/19 02/03/19 16:47 11:34 05:03 POC Glucose 151 H 296 H 112 H 02/02/19 19:27 POC Glucose 95 Phys Exam - Physical Examination Constitutional: NAD HEENT: moist MMs Neck: supple Respiratory: clear to auscultation bilateral Cardiovascular: RRR Gastrointestinal: soft Neurological: moves all 4 limbs Psychiatric: normal affect Deviation from normal: left foot cellulitis Dx/Plan (1) Cellulitis of left lower extremity Code(s): L03.116 - CELLULITIS OF LEFT LOWER LIMB Status: Acute Comment: continue IV Zosyn and vancomycin, follow cultures. Preliminary blood cultures are negative. (2) PVD (peripheral vascular disease) Code(s): I73.9 - PERIPHERAL VASCULAR DISEASE, UNSPECIFIED Status: Chronic Comment: CV surgery following (3) CAD (coronary artery disease) Code(s): I25.10 - ATHSCL HEART DISEASE OF [place] CORONARY ARTERY W/O ANG PCTRS Status: Chronic Qualifiers: Coronary Disease-Associated Artery/Lesion type: bypass graft [place] vs. transplanted heart: [place] heart Associated angina: without angina Qualified Code(s): I25.810 - Atherosclerosis of coronary artery bypass graft(s) without angina pectoris Comment: stable (4) CHF (congestive heart failure) Code(s): I50.9 - HEART FAILURE, UNSPECIFIED Status: Chronic Qualifiers: Heart failure type: combined systolic and diastolic Comment: stable (5) CKD (chronic kidney disease) stage 3, GFR 30-59 ml/min Status: Chronic Comment: stable - Plan * . Review of Systems - Review of Systems Respiratory: negative: Cough, Shortness of Breath, SOB with Excertion, Pleuritic Pain, Wheezing Cardiovascular: negative: chest pain, palpitations, orthopnea, paroxysmal nocturnal dyspnea, edema, light headedness Skin: Rash - Medications/Allergies Allergies/Adverse Reactions: Allergies Allergy/AdvReac Type Severity Reaction Status Date / Time No Known Drug Allergies Allergy Verified 01/16/19 19:11 Medications: Current Medications Acetaminophen (Tylenol) 650 mg PO Q4H PRN PRN Reason: Headache/Fever/Mild Pain (1-3) Hydrocodone Bitart/Acetaminophen ([place] 10/325) 1 tab PO Q4H PRN PRN Reason: Moderate Pain (4-6) Last Admin: 02/03/19 17:46 Dose: 1 tab Hydrocodone Bitart/Acetaminophen ([place] 5/325) 1 tab PO Q4H PRN PRN Reason: Moderate Pain (4-6) Last Admin: 01/30/19 09:38 Dose: 1 tab Amiodarone HCl (Cordarone) 200 mg PO QAM [facility] Last Admin: 02/03/19 07:53 Dose: 200 mg Aspirin (Aspirin Chewable) 81 mg PO DAILY [facility] Last Admin: 02/03/19 07:52 Dose: 81 mg Atorvastatin Calcium (Lipitor) 20 mg PO [facility] Last Admin: 02/02/19 20:29 Dose: 20 mg Carvedilol (Coreg) 12.5 mg PO BID [facility] Last Admin: 02/03/19 07:53 Dose: 12.5 mg Clopidogrel Bisulfate (Plavix) 75 mg PO DAILY [facility] Last Admin: 02/03/19 07:53 Dose: 75 mg Dextrose/Water (Dextrose 50%) 25 gm SLOW IVP PRN PRN PRN Reason: Hypoglycemia Gabapentin (Neurontin) 300 mg PO BID [facility] Last Admin: 02/03/19 07:53 Dose: 300 mg Glucagon (Glucagon) 1 mg IM PRN PRN PRN Reason: Hypoglycemia Heparin Sodium (Porcine) (Heparin) 5,000 units SC TID [facility] Last Admin: 02/03/19 14:16 Dose: 5,000 units Hydralazine HCl (Apresoline) 10 mg SLOW IVP Q4H PRN PRN Reason: SBP > 180 and HR < 70 Dextrose/Water (D5w) 1,000 mls @ 0 mls/hr IV .Q0M PRN PRN Reason: Hypoglycemia Piperacillin Sod/Tazobactam (Sod 2.25 gm/ Sodium Chloride) 100 mls @ 200 mls/ hr IVPB 0200,0800,1400,2000 [facility] Last Admin: 02/03/19 13:19 Dose: 100 mls Insulin Glargine 20 units/ (Miscellaneous Medication) 0.2 mls @ 0 mls/hr SC HS [facility] Last Admin: 02/02/19 20:30 Dose: 0.2 mls Vancomycin HCl 1 gm/ Device 200 mls @ 200 mls/hr IVPB 0900,2100 [facility] Last Admin: 02/03/19 09:08 Dose: 200 mls Insulin Human Lispro (Humalog) 0 units SC .MODERATE SLIDING SC PRN PRN Reason: Moderate Correctional Scale Last Admin: 02/03/19 17:46 Dose: 2 unit Insulin Human Lispro (Humalog) 0 units SC .BEDTIME SLIDING SC PRN PRN Reason: Bedtime Correctional Scale Miscellaneous Medication (Pharmacy To Dose) 1 each IVPB PRN PRN PRN Reason: Pharmacy to dose Temazepam (Restoril) 15 mg PO HSPRN PRN PRN Reason: Insomnia Last Admin: 02/02/19 22:47 Dose: 15 mg [facility]sem[facility] ([facility]) [facility] [place] Last Admin: 02/03/19 07:52 Dose: 10 mg
[2019-02-03] MEDS: Atorvastatin Calcium 20 MG TAB PO SCH (19:46)
[2019-02-03] MEDS: Insulin Glargine 20 UNITS in Pre-Filled Syringe SC SCH (19:55)
[2019-02-03] MEDS: Temazepam 15 MG CAP PO PRN (23:14)
[2019-02-04] MEDS: Piperacillin/Tazobactam 2.25 GM in Sodium Chloride 0.9% 100 ML IVPB SCH ×4 (02:37→20:40)
[2019-02-04] MEDS: HYDROcodone/Acetaminophen 10/325 mg Tablet PO PRN ×3 (08:00→19:30)
[2019-02-04] MEDS: Amiodarone 200 MG TAB PO SCH (08:11)
[2019-02-04] MEDS: Carvedilol 6.25 MG TAB PO SCH ×2 (08:11→20:40)
[2019-02-04] MEDS: Clopidogrel Bisulfate 75 MG TAB PO SCH (08:11)
[2019-02-04] MEDS: Aspirin Chewable 81 MG TAB PO SCH (08:12)
[2019-02-04] MEDS: Heparin 5,000 UNITS/ML VIAL SC SCH ×3 (08:12→20:41)
[2019-02-04] MEDS: Gabapentin 300 MG CAP PO SCH ×2 (08:12→20:41)
[2019-02-04] MEDS: Torsemide 10 MG TAB PO SCH (08:12)
[2019-02-04] MEDS: Vancomycin HCl 1 GM in Premix Bag 1 BAG IVPB SCH ×2 (09:22→20:42)
[2019-02-04] MEDS: HumaLOG 300 UNITS/3 ML VIAL SC PRN (12:46)
--- NOTE | 2019-02-04 17:11 | PDOC.PN ---
- Subjective Encounter Start Date: 02/04/19 Encounter Start Time: 10:40 Pt seen for followup re; left foot cellulitis. says he feels well, no complaints today. - Objective Resuscitation Status - Order Detail: 01/29/19 23:52 Resuscitation Status Routine Resuscitation Status: DNAR: NO Resuscitation Discussed with: patient RAGINI Reviewed: Yes Vital Signs & Weight: Vital Signs (12 hours) Temp Pulse Resp BP BP Pulse Ox 02/04/19 08:11 143/66 H 02/04/19 07:48 97.4 F L 84 20 143/66 H 100 Weight Admit Weight 166 lb 0.129 oz Weight 166 lb 0.129 oz I&O: 02/03/19 02/04/19 02/05/19 06:59 06:59 06:59 Intake Total 540 540 480 Balance 540 540 480 Result Diagrams: 01/30/19 07:25 01/31/19 05:56 Additional Labs: Accuchecks 02/04/19 02/04/19 02/03/19 11:32 04:40 19:50 POC Glucose 258 H 150 H 235 H 02/03/19 16:47 POC Glucose 151 H Labs reviewed by me Phys Exam - Physical Examination Constitutional: NAD HEENT: moist MMs Neck: supple Respiratory: clear to auscultation bilateral Cardiovascular: RRR Gastrointestinal: soft Neurological: moves all 4 limbs Psychiatric: normal affect Deviation from normal: left great toe cellulitis Dx/Plan (1) Cellulitis of left lower extremity Code(s): L03.116 - CELLULITIS OF LEFT LOWER LIMB Status: Acute Comment: continue IV Zosyn and vancomycin, follow cultures. Pt awaiting nuclear scan. (2) PVD (peripheral vascular disease) Code(s): I73.9 - PERIPHERAL VASCULAR DISEASE, UNSPECIFIED Status: Chronic Comment: stable (3) CAD (coronary artery disease) Code(s): I25.10 - ATHSCL HEART DISEASE OF [place] CORONARY ARTERY W/O ANG PCTRS Status: Chronic Qualifiers: Coronary Disease-Associated Artery/Lesion type: bypass graft [place] vs. transplanted heart: [place] heart Associated angina: without angina Qualified Code(s): I25.810 - Atherosclerosis of coronary artery bypass graft(s) without angina pectoris Comment: stable (4) CHF (congestive heart failure) Code(s): I50.9 - HEART FAILURE, UNSPECIFIED Status: Chronic Qualifiers: Heart failure type: combined systolic and diastolic Comment: stable (5) CKD (chronic kidney disease) stage 3, GFR 30-59 ml/min Status: Chronic Comment: stable - Plan * . Review of Systems - Review of Systems Cardiovascular: negative: chest pain, palpitations, orthopnea, paroxysmal nocturnal dyspnea, edema, light headedness Gastrointestinal: negative: Nausea, Vomiting, Abdominal Pain, Diarrhea, Constipation, Melena, Hematochezia Skin: Rash - Medications/Allergies Allergies/Adverse Reactions: Allergies Allergy/AdvReac Type Severity Reaction Status Date / Time No Known Drug Allergies Allergy Verified 01/16/19 19:11 Medications: Current Medications Acetaminophen (Tylenol) 650 mg PO Q4H PRN PRN Reason: Headache/Fever/Mild Pain (1-3) Hydrocodone Bitart/Acetaminophen ([place] 10/325) 1 tab PO Q4H PRN PRN Reason: Moderate Pain (4-6) Last Admin: 02/04/19 14:28 Dose: 1 tab Hydrocodone Bitart/Acetaminophen ([place] 5/325) 1 tab PO Q4H PRN PRN Reason: Moderate Pain (4-6) Last Admin: 01/30/19 09:38 Dose: 1 tab Amiodarone HCl (Cordarone) 200 mg PO QAM [facility] Last Admin: 02/04/19 08:11 Dose: 200 mg Aspirin (Aspirin Chewable) 81 mg PO DAILY [facility] Last Admin: 02/04/19 08:12 Dose: 81 mg Atorvastatin Calcium (Lipitor) 20 mg PO HS [facility] Last Admin: 02/03/19 19:46 Dose: 20 mg Carvedilol (Coreg) 12.5 mg PO BID [facility] Last Admin: 02/04/19 08:11 Dose: 12.5 mg Clopidogrel Bisulfate (Plavix) 75 mg PO DAILY [facility] Last Admin: 02/04/19 08:11 Dose: 75 mg Dextrose/Water (Dextrose 50%) 25 gm SLOW IVP PRN PRN PRN Reason: Hypoglycemia Gabapentin (Neurontin) 300 mg PO BID [facility] Last Admin: 02/04/19 08:12 Dose: 300 mg Glucagon (Glucagon) 1 mg IM PRN PRN PRN Reason: Hypoglycemia Heparin Sodium (Porcine) (Heparin) 5,000 units SC TID [facility] Last Admin: 02/04/19 14:37 Dose: 5,000 units Hydralazine HCl (Apresoline) 10 mg SLOW IVP Q4H PRN PRN Reason: SBP > 180 and HR < 70 Dextrose/Water (D5w) 1,000 mls @ 0 mls/hr IV .Q0M PRN PRN Reason: Hypoglycemia Piperacillin Sod/Tazobactam (Sod 2.25 gm/ Sodium Chloride) 100 mls @ 200 mls/ hr IVPB 0200,0800,1400,2000 [facility] Last Admin: 02/04/19 14:29 Dose: 100 mls Insulin Glargine 20 units/ (Miscellaneous Medication) 0.2 mls @ 0 mls/hr SC HS [facility] Last Admin: 02/03/19 19:55 Dose: 0.2 mls Vancomycin HCl 1 gm/ Device 200 mls @ 200 mls/hr IVPB 0900,2100 [facility] Last Admin: 02/04/19 09:22 Dose: 200 mls Insulin Human Lispro (Humalog) 0 units SC .MODERATE SLIDING SC PRN PRN Reason: Moderate Correctional Scale Last Admin: 02/04/19 12:46 Dose: 6 unit Insulin Human Lispro (Humalog) 0 units SC .BEDTIME SLIDING SC PRN PRN Reason: Bedtime Correctional Scale Miscellaneous Medication (Pharmacy To Dose) 1 each IVPB PRN PRN PRN Reason: Pharmacy to dose Temazepam (Restoril) 15 mg PO HSPRN PRN PRN Reason: Insomnia Last Admin: 02/03/19 23:14 Dose: 15 mg Torsemide (Demadex) [facility] [place] Admin: 02/04/19 08:12 Dose: 10 mg
[2019-02-04] MEDS: Atorvastatin Calcium 20 MG TAB PO SCH (20:40)
[2019-02-04] MEDS: Insulin Glargine 20 UNITS in Pre-Filled Syringe SC SCH (20:41)
[2019-02-04] MEDS: Temazepam 15 MG CAP PO PRN (21:54)
[2019-02-05] MEDS: HYDROcodone/Acetaminophen 10/325 mg Tablet PO PRN ×3 (00:22→21:23)
[2019-02-05] MEDS: Piperacillin/Tazobactam 2.25 GM in Sodium Chloride 0.9% 100 ML IVPB SCH ×4 (01:53→22:38)
[2019-02-05] MEDS: Torsemide 10 MG TAB PO SCH (08:13)
[2019-02-05] MEDS: Aspirin Chewable 81 MG TAB PO SCH (08:14)
[2019-02-05] MEDS: Carvedilol 6.25 MG TAB PO SCH ×2 (08:14→21:22)
[2019-02-05] MEDS: Amiodarone 200 MG TAB PO SCH (08:14)
[2019-02-05] MEDS: Heparin 5,000 UNITS/ML VIAL SC SCH ×3 (08:14→21:25)
[2019-02-05] MEDS: Gabapentin 300 MG CAP PO SCH ×2 (08:15→21:21)
[2019-02-05] MEDS: Clopidogrel Bisulfate 75 MG TAB PO SCH (08:15)
[2019-02-05 08:38] LABS: Vancomycin, Trough 31.7 ug/mL
[2019-02-05] MEDS: Vancomycin HCl 1 GM in Premix Bag 1 BAG IVPB SCH (09:15)
[2019-02-05] MEDS: HumaLOG 300 UNITS/3 ML VIAL SC PRN ×2 (12:51→17:59)
--- NOTE | 2019-02-05 16:46 | PRG ---
DATE OF SERVICE: 02/05/2019 SUBJECTIVE: Feeling about the same. There is a quite a bit of pain in the fifth digit, left foot on palpation, but not spontaneously. No respiratory symptoms. No diarrhea. OBJECTIVE: VITAL SIGNS: T-max 98, BP 120/74, pulse 73, respirations 18. GENERAL: Appears in no distress. HEENT: Ocular movements conjugate. LUNGS: Clear. HEART: S1 and S2, regular rate. ABDOMEN: Soft. Not distended. EXTREMITIES: Left foot with the area of necrotic eschar at the medial aspect of the left first toe, very faint erythema in dorsal aspect of the foot. Left fifth toe with about 0.4 cm ulcer with covering scab appears superficial. The left groin ulcer that is at the site of the femoral-popliteal surgical incision, wound with yellowish slough at the base. The ulcer measures about 1 cm. Remainder of incisions appear well with no erythema or dehiscence. ASSESSMENT AND DISCUSSION: Type 2 diabetes, stage 3 renal insufficiency, peripheral vascular disease with femoral-popliteal bypass. Proximal stent placement pending bone scan to rule out osteo of the left foot, and then determine the rational therapy and modality of IV antimicrobial therapy versus oral. Groin ulcer can be managed with wound care only at this point in time. Job ID: [id number]
--- NOTE | 2019-02-05 19:30 | PDOC.PN ---
- Subjective Encounter Start Date: 02/05/19 Encounter Start Time: 09:00 Pt seen for followup re: cellulitis of LLE. No new complaints. - Objective Resuscitation Status - Order Detail: 01/29/19 23:52 Resuscitation Status Routine Resuscitation Status: DNAR: NO Resuscitation Discussed with: patient RAGINI Reviewed: Yes Vital Signs & Weight: Vital Signs (12 hours) Temp Pulse Resp BP BP Pulse Ox 02/05/19 08:14 125/74 02/05/19 08:00 97.4 F L 73 18 125/74 100 Weight Admit Weight 166 lb 0.129 oz Weight 166 lb 0.129 oz I&O: 02/04/19 02/05/19 02/06/19 06:59 06:59 06:59 Intake Total 540 1220 1400 Balance 540 1220 1400 Result Diagrams: 01/30/19 07:25 01/31/19 05:56 Additional Labs: Accuchecks 02/05/19 02/05/19 02/05/19 16:20 11:20 04:12 POC Glucose 222 H 228 H 149 H 02/04/19 20:45 POC Glucose 195 H Labs reviewed by me Phys Exam - Physical Examination Constitutional: NAD HEENT: moist MMs Neck: supple Respiratory: clear to auscultation bilateral Cardiovascular: RRR Gastrointestinal: soft Neurological: moves all 4 limbs Psychiatric: normal affect Deviation from normal: wounds and cellulitis as documented Dx/Plan (1) Cellulitis of left lower extremity Code(s): L03.116 - CELLULITIS OF LEFT LOWER LIMB Status: Acute Comment: continue IV Zosyn and vancomycin, follow cultures. Pt awaiting nuclear scan, will likely happen tomorrow. (2) PVD (peripheral vascular disease) Code(s): I73.9 - PERIPHERAL VASCULAR DISEASE, UNSPECIFIED Status: Chronic Comment: stable (3) CAD (coronary artery disease) Code(s): I25.10 - ATHSCL HEART DISEASE OF [place] CORONARY ARTERY W/O ANG PCTRS Status: Chronic Qualifiers: Coronary Disease-Associated Artery/Lesion type: bypass graft [place] vs. transplanted heart: [place] heart Associated angina: without angina Qualified Code(s): I25.810 - Atherosclerosis of coronary artery bypass graft(s) without angina pectoris Comment: stable (4) CHF (congestive heart failure) Code(s): I50.9 - HEART FAILURE, UNSPECIFIED Status: Chronic Qualifiers: Heart failure type: combined systolic and diastolic Comment: stable (5) CKD (chronic kidney disease) stage 3, GFR 30-59 ml/min Status: Chronic Comment: stable - Plan * . Review of Systems - Review of Systems Cardiovascular: negative: chest pain, palpitations, orthopnea, paroxysmal nocturnal dyspnea, edema, light headedness Gastrointestinal: negative: Nausea, Vomiting, Abdominal Pain, Diarrhea, Constipation, Melena, Hematochezia - Medications/Allergies Allergies/Adverse Reactions: Allergies Allergy/AdvReac Type Severity Reaction Status Date / Time No Known Drug Allergies Allergy Verified 01/16/19 19:11 Medications: Current Medications Acetaminophen (Tylenol) 650 mg PO Q4H PRN PRN Reason: Headache/Fever/Mild Pain (1-3) Hydrocodone Bitart/Acetaminophen ([place] 10/325) 1 tab PO Q4H PRN PRN Reason: Moderate Pain (4-6) Last Admin: 02/05/19 08:27 Dose: 1 tab Hydrocodone Bitart/Acetaminophen ([place] 5/325) 1 tab PO Q4H PRN PRN Reason: Moderate Pain (4-6) Last Admin: 01/30/19 09:38 Dose: 1 tab Amiodarone HCl (Cordarone) 200 mg PO QAM [facility] Last Admin: 02/05/19 08:14 Dose: 200 mg Aspirin (Aspirin Chewable) 81 mg PO DAILY [facility] Last Admin: 02/05/19 08:14 Dose: 81 mg Atorvastatin Calcium (Lipitor) 20 mg PO HS [facility] Last Admin: 02/04/19 20:40 Dose: 20 mg Carvedilol (Coreg) 12.5 mg PO BID [facility] Last Admin: 02/05/19 08:14 Dose: 12.5 mg Clopidogrel Bisulfate (Plavix) 75 mg PO DAILY [facility] Last Admin: 02/05/19 08:15 Dose: 75 mg Dextrose/Water (Dextrose 50%) 25 gm SLOW IVP PRN PRN PRN Reason: Hypoglycemia Gabapentin (Neurontin) 300 mg PO BID [facility] Last Admin: 02/05/19 08:15 Dose: 300 mg Glucagon (Glucagon) 1 mg IM PRN PRN PRN Reason: Hypoglycemia Heparin Sodium (Porcine) (Heparin) 5,000 units SC TID [facility] Last Admin: 02/05/19 14:55 Dose: 5,000 units Hydralazine HCl (Apresoline) 10 mg SLOW IVP Q4H PRN PRN Reason: SBP > 180 and HR < 70 Dextrose/Water (D5w) 1,000 mls @ 0 mls/hr IV .Q0M PRN PRN Reason: Hypoglycemia Piperacillin Sod/Tazobactam (Sod 2.25 gm/ Sodium Chloride) 100 mls @ 200 mls/ hr IVPB 0200,0800,1400,2000 [facility] Last Admin: 02/05/19 13:51 Dose: 100 mls Insulin Glargine 20 units/ (Miscellaneous Medication) 0.2 mls @ 0 mls/hr SC HS [facility] Last Admin: 02/04/19 20:41 Dose: 0.2 mls Vancomycin HCl 1 gm/ Device 200 mls @ 200 mls/hr IVPB 0900,2100 [facility] Insulin Human Lispro (Humalog) 0 units SC .MODERATE SLIDING SC PRN PRN Reason: Moderate Correctional Scale Last Admin: 02/05/19 17:59 Dose: 4 unit Insulin Human Lispro (Humalog) 0 units SC .BEDTIME SLIDING SC PRN PRN Reason: Bedtime Correctional Scale Miscellaneous Medication (Pharmacy To Dose) 1 each IVPB PRN PRN PRN Reason: Pharmacy to dose Temazepam (Restoril) 15 mg PO HSPRN PRN PRN Reason: Insomnia Last Admin: 02/04/19 21:54 Dose: 15 mg Torsemide (Demadex) 10 mg PO [facility] Last Admin: 02/05/19 08:13 Dose: 10 mg
[2019-02-05] MEDS ORDERED: Nitroglycerin 0.4 MG TAB (25 Tab Bottle) ONE (19:54)
[2019-02-05] MEDS: Atorvastatin Calcium 20 MG TAB PO SCH (21:22)
[2019-02-05] MEDS: Insulin Glargine 20 UNITS in Pre-Filled Syringe SC SCH (22:00)
[2019-02-06] MEDS: Temazepam 15 MG CAP PO PRN (00:03)
[2019-02-06] MEDS: Piperacillin/Tazobactam 2.25 GM in Sodium Chloride 0.9% 100 ML IVPB SCH ×4 (02:48→20:28)
[2019-02-06] MEDS: HYDROcodone/Acetaminophen 5/325 mg Tablet PO PRN ×2 (07:06→21:37)
[2019-02-06 07:55] LABS: Vancomycin, Trough 16.1 ug/mL
[2019-02-06] MEDS: Torsemide 10 MG TAB PO SCH (08:45)
[2019-02-06] MEDS: Amiodarone 200 MG TAB PO SCH (08:46)
[2019-02-06] MEDS: Carvedilol 6.25 MG TAB PO SCH ×2 (08:46→20:29)
[2019-02-06] MEDS: Clopidogrel Bisulfate 75 MG TAB PO SCH (08:46)
[2019-02-06] MEDS: Aspirin Chewable 81 MG TAB PO SCH (08:47)
[2019-02-06] MEDS: Gabapentin 300 MG CAP PO SCH ×2 (08:47→20:29)
[2019-02-06] MEDS: Heparin 5,000 UNITS/ML VIAL SC SCH ×4 (08:47→20:30)
[2019-02-06] MEDS: Nitroglycerin 0.2mg/Hour PATCH TD SCH (09:56)
[2019-02-06] MEDS: Vancomycin HCl 1 GM in Premix Bag 1 BAG IVPB SCH ×2 (09:56→10:21)
[2019-02-06] MEDS: HumaLOG 300 UNITS/3 ML VIAL SC PRN (12:13)
--- NOTE | 2019-02-06 15:36 | NM ---
Radionucleotide white blood cell scan HISTORY: Osteomyelitis. Toe infection. FINDINGS: Physiologic uptake within the abdominal viscera and skeleton. Heterogeneous uptake associat ed with the shoulders and sternoclavicular joints with appearance of degenerative changes. Significantly increased uptake is present in the left big toe. There is also diffusely increased upta ke at the left lower leg, ankle, and foot compared to the right. IMPRESSION: White blood cell accumulation at the left big toe, consistent with infection. Exact anato kayli localization not delineated. MRI would be appropriate for that anatomic characterization. Diffuse increased uptake throughout the soft tissues of the lower leg, and foot may reflect large dis tribution soft tissue inflammation.
--- NOTE | 2019-02-06 18:02 | PDOC.PN ---
- Subjective Encounter Start Date: 02/06/19 Encounter Start Time: 09:20 Pt seen for followup re: LLE cellulitis. No complaints today. - Objective Resuscitation Status - Order Detail: 01/29/19 23:52 Resuscitation Status Routine Resuscitation Status: DNAR: NO Resuscitation Discussed with: patient Vital Signs & Weight: Vital Signs (12 hours) Temp Pulse Resp BP BP Pulse Ox 02/06/19 08:46 124/69 02/06/19 07:18 97.7 F 79 20 132/82 100 Weight Admit Weight 166 lb 0.129 oz Weight 166 lb 0.129 oz I&O: 02/05/19 02/06/19 02/07/19 06:59 06:59 06:59 Intake Total 1220 1400 Balance 1220 1400 Result Diagrams: 01/30/19 07:25 01/31/19 05:56 Additional Labs: Accuchecks 02/06/19 02/06/19 02/06/19 16:46 12:11 04:09 POC Glucose 128 H 315 H 169 H 02/05/19 20:08 POC Glucose 224 H Phys Exam - Physical Examination Constitutional: NAD HEENT: moist MMs Neck: no nodes Respiratory: clear to auscultation bilateral Cardiovascular: no rub Gastrointestinal: non-tender Neurological: moves all 4 limbs Psychiatric: normal affect Deviation from normal: L foot cellulitis Dx/Plan (1) Cellulitis of left lower extremity Code(s): L03.116 - CELLULITIS OF LEFT LOWER LIMB Status: Acute Comment: continue IV Zosyn and vancomycin, follow cultures. Pt scheduled for nuclear scan today. (2) PVD (peripheral vascular disease) Code(s): I73.9 - PERIPHERAL VASCULAR DISEASE, UNSPECIFIED Status: Chronic Comment: stable (3) CAD (coronary artery disease) Code(s): I25.10 - ATHSCL HEART DISEASE OF [place] CORONARY ARTERY W/O ANG PCTRS Status: Chronic Qualifiers: Coronary Disease-Associated Artery/Lesion type: bypass graft [place] vs. transplanted heart: [place] heart Associated angina: without angina Qualified Code(s): I25.810 - Atherosclerosis of coronary artery bypass graft(s) without angina pectoris Comment: stable (4) CHF (congestive heart failure) Code(s): I50.9 - HEART FAILURE, UNSPECIFIED Status: Chronic Qualifiers: Heart failure type: combined systolic and diastolic Comment: stable (5) CKD (chronic kidney disease) stage 3, GFR 30-59 ml/min Status: Chronic Comment: stable - Plan continue antibiotics, out of bed/ambulate * . Review of Systems - Review of Systems Respiratory: negative: Cough, Shortness of Breath, SOB with Excertion, Pleuritic Pain, Wheezing Cardiovascular: negative: chest pain, palpitations, orthopnea, paroxysmal nocturnal dyspnea, edema, light headedness - Medications/Allergies Allergies/Adverse Reactions: Allergies Allergy/AdvReac Type Severity Reaction Status Date / Time No Known Drug Allergies Allergy Verified 01/16/19 19:11 Medications: Current Medications Acetaminophen (Tylenol) 650 mg PO Q4H PRN PRN Reason: Headache/Fever/Mild Pain (1-3) Hydrocodone Bitart/Acetaminophen ([place] 10/325) 1 tab PO Q4H PRN PRN Reason: Moderate Pain (4-6) Last Admin: 02/05/19 21:23 Dose: 1 tab Hydrocodone Bitart/Acetaminophen ([place] 5/325) 1 tab PO Q4H PRN PRN Reason: Moderate Pain (4-6) Last Admin: 02/06/19 07:06 Dose: 1 tab Amiodarone [facility] (C[facility]arone) [facility] [place] Last Admin: 02/06/19 08:46 Dose: 200 mg Aspirin (Aspirin Chewable) 81 mg PO DAILY [facility] Last Admin: 02/06/19 08:47 Dose: 81 mg Atorvastatin Calcium (Lipitor) 20 mg PO HS [facility] Last Admin: 02/05/19 21:22 Dose: 20 mg Carvedilol (Coreg) 12.5 mg PO BID [facility] Last Admin: 02/06/19 08:46 Dose: 12.5 mg Clopidogrel Bisulfate (Plavix) 75 mg PO DAILY [facility] Last Admin: 02/06/19 08:46 Dose: 75 mg Dextrose/Water (Dextrose 50%) 25 gm SLOW IVP PRN PRN PRN Reason: Hypoglycemia Gabapentin (Neurontin) 300 mg PO BID [facility] Last Admin: 02/06/19 08:47 Dose: 300 mg Glucagon (Glucagon) 1 mg IM PRN PRN PRN Reason: Hypoglycemia Heparin Sodium (Porcine) (Heparin) 5,000 units SC TID [facility] Last Admin: 02/06/19 16:23 Dose: 5,000 units Hydralazine HCl (Apresoline) 10 mg SLOW IVP Q4H PRN PRN Reason: SBP > 180 and HR < 70 Dextrose/Water (D5w) 1,000 mls @ 0 mls/hr IV .Q0M PRN PRN Reason: Hypoglycemia Piperacillin Sod/Tazobactam (Sod 2.25 gm/ Sodium Chloride) 100 mls @ 200 mls/ hr IVPB 0200,0800,1400,2000 [facility] Last Admin: 02/06/19 12:13 Dose: 100 mls Insulin Glargine 20 units/ (Miscellaneous Medication) 0.2 mls @ 0 mls/hr SC HS [facility] Last Admin: 02/05/19 22:00 Dose: 0.2 mls Vancomycin HCl 1 gm/ Device 200 mls @ 200 mls/hr IVPB 0900 [facility] Last Admin: 02/06/19 09:56 Dose: 200 mls Insulin Human Lispro (Humalog) 0 units SC .MODERATE SLIDING SC PRN PRN Reason: Moderate Correctional Scale Last Admin: 02/06/19 12:13 Dose: 8 unit Insulin Human Lispro (Humalog) 0 units SC .BEDTIME SLIDING SC PRN PRN Reason: Bedtime Correctional Scale Miscellaneous Medication (Pharmacy To Dose) 1 each IVPB PRN PRN PRN Reason: Pharmacy to dose Nitroglycerin (Nitro-Dur Patch) 0.2 mg TD DAILY [facility] Last Admin: 02/06/19 09:56 Dose: 0.2 mg Temazepam (Restoril) 15 mg PO HSPRN PRN PRN Reason: Insomnia Last Admin: 02/06/19 00:03 Dose: 15 mg Torsemide (Demadex) 10 mg PO [facility] Last Admin: 02/06/19 08:45 Dose: 10 mg
[2019-02-06] MEDS: Atorvastatin Calcium 20 MG TAB PO SCH (20:29)
[2019-02-06] MEDS: Insulin Glargine 20 UNITS in Pre-Filled Syringe SC SCH (20:31)
[2019-02-07] MEDS: Temazepam 15 MG CAP PO PRN (00:03)
[2019-02-07] MEDS: Piperacillin/Tazobactam 2.25 GM in Sodium Chloride 0.9% 100 ML IVPB SCH ×4 (02:19→19:50)
[2019-02-07 06:58] LABS: #Eosinphils 0.2 thou/uL (0.0-0.7); #Lymphocytes 1.2 thou/uL (1.20-3.40); #Monocytes 0.5 thou/uL (0.11-0.59); #Neutrophils 2.5 thou/uL (1.40-6.50); %Basophils 0.2 % (0.0-1.0); %Lymphocytes 28.2 % (21.0-51.0); %Monocytes 10.5 % (0.0-10.0); %Neutrophils 57.1 % (42.0-75.0); Hemoglobin 8.3 g/dL (14.0-18.0); Mean Corpuscular HGB CONC 33.4 g/dL (32.0-36.0); Mean Corpuscular Volume 92.9 fL (78.0-98.0); Mean Platelet Volume 7.8 fL (7.4-10.4); Platelet Count 170 thou/uL (130-400); RBC Distribution Width 15.7 % (11.5-14.5); Red Blood Cell (RBC) Count 2.69 mill/uL (4.70-6.10); White Blood Cell (WBC) Count 4.4 thou/uL (4.8-10.8)
[2019-02-07 07:18] LABS: ALT (SGPT) 19 U/L (8-55); AST (SGOT) 25 U/L (5-34); Albumin 3.1 g/dL (3.4-4.8); Alkaline Phosphatase 54 U/L (40-150); Anion Gap 14 mmol/L (10-20); BUN (Urea Nitrogen) 16 mg/dL (8.4-25.7); Bilirubin, Total 0.6 mg/dL (0.2-1.2); CRP (Inflammatory) 3.89 mg/dL (= or < 0.5); Calc. Creatinine Clearance 53 mL/min (70-130); Calcium 8.7 mg/dL (7.8-10.44); Carbon Dioxide 21 mmol/L (23-31); Chloride 109 mmol/L (98-107); Estimated GFR-MDRD 49; Globulin 3.1 g/dL (2.4-3.5); Glucose 117 mg/dL (80-115); Potassium 3.9 mmol/L (3.5-5.1); Protein, Total 6.2 g/dL (5.8-8.1); Sodium 140 mmol/L (136-145)
[2019-02-07] MEDS: Gabapentin 300 MG CAP PO SCH ×2 (08:26→19:52)
[2019-02-07] MEDS: Aspirin Chewable 81 MG TAB PO SCH (08:26)
[2019-02-07] MEDS: HYDROcodone/Acetaminophen 5/325 mg Tablet PO PRN (08:27)
[2019-02-07] MEDS: Amiodarone 200 MG TAB PO SCH (08:27)
[2019-02-07] MEDS: Clopidogrel Bisulfate 75 MG TAB PO SCH (08:27)
[2019-02-07] MEDS: Carvedilol 6.25 MG TAB PO SCH ×2 (08:28→19:52)
[2019-02-07] MEDS: Torsemide 10 MG TAB PO SCH (08:29)
[2019-02-07] MEDS: Nitroglycerin 0.2mg/Hour PATCH TD SCH (08:29)
[2019-02-07] MEDS: Vancomycin HCl 1 GM in Premix Bag 1 BAG IVPB SCH (08:30)
[2019-02-07] MEDS: Heparin 5,000 UNITS/ML VIAL SC SCH ×3 (08:37→19:51)
[2019-02-07] MEDS ORDERED: Vancomycin HCl 1 GM in Premix Bag 1 BAG IVPB SCH (09:00)
[2019-02-07] MEDS: HumaLOG 300 UNITS/3 ML VIAL SC PRN (11:36)
[2019-02-07] MEDS: HYDROcodone/Acetaminophen 10/325 mg Tablet PO PRN ×2 (11:36→19:50)
--- NOTE | 2019-02-07 13:31 | PDOC.PN ---
- Subjective Encounter Start Date: 02/07/19 Encounter Start Time: 11:20 Subjective: no pain, still has swelling in left LE -: is sitting in chair with legs down - Objective Resuscitation Status - Order Detail: 01/29/19 23:52 Resuscitation Status Routine Resuscitation Status: DNAR: NO Resuscitation Discussed with: patient RAGINI Reviewed: Yes Vital Signs & Weight: Vital Signs (12 hours) Temp Pulse Resp BP BP Pulse Ox 02/07/19 08:28 118/71 02/07/19 07:26 97.6 F 72 18 128/69 95 Weight Admit Weight 166 lb 0.129 oz Weight 166 lb 0.129 oz I&O: 02/06/19 02/07/19 02/08/19 06:59 06:59 06:59 Intake Total 1400 1500 Balance 1400 1500 Result Diagrams: 02/07/19 06:14 02/07/19 06:14 Additional Labs: Accuchecks 02/07/19 02/07/19 02/06/19 11:20 04:09 19:42 POC Glucose 230 H 114 H 251 H 02/06/19 16:46 POC Glucose 128 H Phys Exam - Physical Examination HEENT: PERRLA, moist MMs Neck: no JVD, supple Respiratory: no wheezing, no rales Cardiovascular: RRR, no significant murmur Gastrointestinal: soft, non-tender, positive bowel sounds Musculoskeletal: pulses present left LE edema Neurological: non-focal, moves all 4 limbs Psychiatric: normal affect, A&O x 3 Dx/Plan (1) Cellulitis of left lower extremity Code(s): L03.116 - CELLULITIS OF LEFT LOWER LIMB Status: Acute (2) Diabetes mellitus Code(s): E11.9 - TYPE 2 DIABETES MELLITUS WITHOUT COMPLICATIONS Status: Chronic Qualifiers: Diabetes mellitus type: type 2 Diabetes mellitus long-term insulin use: with long-term use Diabetes mellitus complication status: with kidney complications Diabetes mellitus complication detail: with chronic kidney disease Chronic kidney disease stage: stage 3 (moderate) Qualified Code(s): E11.22 - Type 2 diabetes mellitus with diabetic chronic kidney disease; N18.3 - Chronic kidney disease, stage 3 (moderate); Z79.4 - detention (current) use of insulin (3) Ischemic cardiomyopathy Code(s): I25.5 - ISCHEMIC CARDIOMYOPATHY Status: Chronic Comment: with ef of 15%, graft to lad is patent per cath 2015 (4) PVD (peripheral vascular disease) Code(s): I73.9 - PERIPHERAL VASCULAR DISEASE, UNSPECIFIED Status: Chronic Comment: stable (5) V-tach Code(s): I47.2 - VENTRICULAR TACHYCARDIA Status: Chronic Comment: on amiodarone (6) CAD (coronary artery disease) Code(s): I25.10 - ATHSCL HEART DISEASE OF [place] CORONARY ARTERY W/O ANG PCTRS Status: Chronic Qualifiers: Coronary Disease-Associated Artery/Lesion type: bypass graft [place] vs. transplanted heart: [place] heart Associated angina: without angina Qualified Code(s): I25.810 - Atherosclerosis of coronary artery bypass graft(s) without angina pectoris Comment: stable (7) CHF (congestive heart failure) Code(s): I50.9 - HEART FAILURE, UNSPECIFIED Status: Chronic Qualifiers: Heart failure type: combined systolic and diastolic Comment: stable (8) CKD (chronic kidney disease) stage 3, GFR 30-59 ml/min Status: Chronic Comment: stable (9) STEPHANIE (acute kidney injury) Code(s): N17.9 - ACUTE KIDNEY FAILURE, UNSPECIFIED Status: Resolved (10) Osteomyelitis of great toe of left foot Code(s): M86.9 - OSTEOMYELITIS, UNSPECIFIED Status: Acute - Plan d/w and , plan is for iv antibiotics -: will get PICC line, will order antibiotics -: to mobilize as tolerated, counselled to keep his left LE off ground -: -to decrease dependent edema. -: hemostable, continue amiodarone, asp, lipitor, plavix, coreg, lantus * . is currently on zosyn and vanc, for vanc and invanz as outpt Review of Systems - Medications/Allergies Allergies/Adverse Reactions: Allergies Allergy/AdvReac Type Severity Reaction Status Date / Time No Known Drug Allergies Allergy Verified 01/16/19 19:11 Medications: Current Medications Acetaminophen (Tylenol) 650 mg PO Q4H PRN PRN Reason: Headache/Fever/Mild Pain (1-3) Hydrocodone Bitart/Acetaminophen (Verbena 10/325) 1 tab PO Q4H PRN PRN Reason: Moderate Pain (4-6) Last Admin: 02/07/19 11:36 Dose: 1 tab Hydrocodone Bitart/Acetaminophen (Verbena 5/325) 1 tab PO Q4H PRN PRN Reason: Moderate Pain (4-6) Last Admin: 02/07/19 08:27 Dose: 1 tab Amiodarone HCl (Cordarone) 200 mg PO QAM [facility] Last Admin: 02/07/19 08:27 Dose: 200 mg Aspirin (Aspirin Chewable) 81 mg PO DAILY [facility] Last Admin: 02/07/19 08:26 Dose: 81 mg Atorvastatin Calcium (Lipitor) 20 mg PO HS [facility] Last Admin: 02/06/19 20:29 Dose: 20 mg Carvedilol (Coreg) 12.5 mg PO BID [facility] Last Admin: 02/07/19 08:28 Dose: 12.5 mg Clopidogrel Bisulfate (Plavix) 75 mg PO DAILY [facility] Last Admin: 02/07/19 08:27 Dose: 75 mg Dextrose/Water (Dextrose 50%) 25 gm SLOW IVP PRN PRN PRN Reason: Hypoglycemia Gabapentin (Neurontin) 300 mg PO BID [facility] Last Admin: 02/07/19 08:26 Dose: 300 mg Glucagon (Glucagon) 1 mg IM PRN PRN PRN Reason: Hypoglycemia Heparin Sodium (Porcine) (Heparin) 5,000 units SC TID [facility] Last Admin: 02/07/19 08:37 Dose: Not Given Hydralazine HCl (Apresoline) 10 mg SLOW IVP Q4H PRN PRN Reason: SBP > 180 and HR < 70 Dextrose/Water (D5w) 1,000 mls @ 0 mls/hr IV .Q0M PRN PRN Reason: Hypoglycemia Piperacillin Sod/Tazobactam (Sod 2.25 gm/ Sodium Chloride) 100 mls @ 200 mls/ hr IVPB 0200,0800,1400,2000 [facility] Last Admin: 02/07/19 08:28 Dose: 100 mls Insulin Glargine 20 units/ (Miscellaneous Medication) 0.2 mls @ 0 mls/hr SC [facility] Last Admin: 02/06/19 20:31 Dose: 0.2 mls Vancomycin HCl 1 gm/ Device 200 mls @ 200 mls/hr IVPB 0900 [facility] Last Admin: 02/07/19 08:30 Dose: 200 mls Insulin Human Lispro (Humalog) 0 units SC .MODERATE SLIDING SC PRN PRN Reason: Moderate Correctional Scale Last Admin: 02/07/19 11:36 Dose: 4 unit Insulin Human Lispro (Humalog) 0 units SC .BEDTIME SLIDING SC PRN PRN Reason: Bedtime Correctional Scale Miscellaneous Medication (Pharmacy To Dose) 1 each IVPB PRN PRN PRN Reason: Pharmacy to dose Nitroglycerin (Nitro-Dur Patch) 0.2 mg TD DAILY [facility] Last Admin: 02/07/19 08:29 Dose: 0.2 mg Temazepam (Restoril) 15 mg PO HSPRN PRN PRN Reason: Insomnia Last Admin: 02/07/19 00:03 Dose: 15 mg Torsemide (Demadex) 10 mg PO QAM [facility] Last Admin: 02/07/19 08:29 Dose: 10 mg
--- NOTE | 2019-02-07 15:16 | SPC ---
Sonographic guided right upper extremity PICC placement HISTORY: Toe infection. FINDINGS: After explaining the procedure and answering all questions, the right upper extremity was p repped and draped in usual sterile fashion. Sterile technique, buffered local anesthesia, sonographic guidance, and a 22-gauge needle were used to carefully access the right cephalic vein. St andard technique was then used to place the tip of a 5 [place] single lumen PICC so that the tip lies at the level of the superior vena cava. The catheter was flushed and secured externally. Patient tolerated the procedure well and was returned in unchanged condition. IMPRESSION: Right upper extremity PICC is ready for use.
[2019-02-07] MEDS: Insulin Glargine 20 UNITS in Pre-Filled Syringe SC SCH (19:51)
[2019-02-07] MEDS: Atorvastatin Calcium 20 MG TAB PO SCH (19:52)
[2019-02-08] MEDS: Piperacillin/Tazobactam 2.25 GM in Sodium Chloride 0.9% 100 ML IVPB SCH ×3 (03:21→13:35)
[2019-02-08] MEDS: HYDROcodone/Acetaminophen 10/325 mg Tablet PO PRN ×2 (07:15→13:35)
[2019-02-08] MEDS: Clopidogrel Bisulfate 75 MG TAB PO SCH (08:30)
[2019-02-08] MEDS: Aspirin Chewable 81 MG TAB PO SCH (08:30)
[2019-02-08] MEDS: Gabapentin 300 MG CAP PO SCH (08:31)
[2019-02-08] MEDS: Carvedilol 6.25 MG TAB PO SCH (08:31)
[2019-02-08] MEDS: Amiodarone 200 MG TAB PO SCH (08:32)
[2019-02-08] MEDS: Heparin 5,000 UNITS/ML VIAL SC SCH ×2 (08:32→14:02)
[2019-02-08] MEDS: Torsemide 10 MG TAB PO SCH (08:33)
[2019-02-08] MEDS: Nitroglycerin 0.2mg/Hour PATCH TD SCH (08:34)
[2019-02-08 09:11] LABS: Vancomycin, Trough 14.7 ug/mL
[2019-02-08] MEDS: Vancomycin HCl 1 GM in Premix Bag 1 BAG IVPB SCH (09:32)
--- NOTE | 2019-02-08 13:49 | PDOC.PN ---
- Subjective Encounter Start Date: 02/08/19 Encounter Start Time: 09:30 Subjective: no new complaints -: has swelling of left LE - Objective Resuscitation Status - Order Detail: 01/29/19 23:52 Resuscitation Status Routine Resuscitation Status: DNAR: NO Resuscitation Discussed with: patient RAGINI Reviewed: Yes Vital Signs & Weight: Vital Signs (12 hours) Temp Pulse Resp BP BP Pulse Ox 02/08/19 08:31 130/86 02/08/19 08:00 97.7 F 71 18 130/86 93 L 02/08/19 04:00 97.5 F L 73 20 125/74 73 L Weight Admit Weight 166 lb 0.129 oz Weight 166 lb 0.129 oz I&O: 02/07/19 02/08/19 02/09/19 06:59 06:59 06:59 Intake Total 1500 Balance 1500 Result Diagrams: 02/07/19 06:14 02/07/19 06:14 Additional Labs: Accuchecks 02/08/19 02/08/19 02/07/19 11:40 06:03 20:23 POC Glucose 187 H 137 H 207 H 02/07/19 16:24 POC Glucose 151 H Phys Exam - Physical Examination HEENT: PERRLA, moist MMs Neck: no JVD, supple Respiratory: no wheezing, no rales Cardiovascular: RRR, no significant murmur Gastrointestinal: soft, non-tender, positive bowel sounds Musculoskeletal: pulses present, edema present Neurological: non-focal, moves all 4 limbs Psychiatric: normal affect, A&O x 3 Dx/Plan (1) Cellulitis of left lower extremity Code(s): L03.116 - CELLULITIS OF LEFT LOWER LIMB Status: Acute Comment: with osteomyelitis of left gr toe (2) Diabetes mellitus Code(s): E11.9 - TYPE 2 DIABETES MELLITUS WITHOUT COMPLICATIONS Status: Chronic Qualifiers: Diabetes mellitus type: type 2 Diabetes mellitus residential insulin use: with keno terminal operator use Diabetes mellitus complication status: with kidney complications Diabetes mellitus complication detail: with chronic kidney disease Chronic kidney disease stage: stage 3 (moderate) Qualified Code(s): E11.22 - Type 2 diabetes mellitus with diabetic chronic kidney disease; N18.3 - Chronic kidney disease, stage 3 (moderate); Z79.4 - keno terminal operator (current) use of insulin (3) Ischemic cardiomyopathy Code(s): I25.5 - ISCHEMIC CARDIOMYOPATHY Status: Chronic Comment: with ef of 15%, graft to lad is patent per cath 2016 (4) PVD (peripheral vascular disease) Code(s): I73.9 - PERIPHERAL VASCULAR DISEASE, UNSPECIFIED Status: Chronic Comment: stable (5) V-tach Code(s): I47.2 - VENTRICULAR TACHYCARDIA Status: Chronic Comment: on amiodarone (6) CAD (coronary artery disease) Code(s): I25.10 - ATHSCL HEART DISEASE OF [place] CORONARY ARTERY W/O ANG PCTRS Status: Chronic Qualifiers: Coronary Disease-Associated Artery/Lesion type: bypass graft [place] vs. transplanted heart: [place] heart Associated angina: without angina Qualified Code(s): I25.810 - Atherosclerosis of coronary artery bypass graft(s) without angina pectoris Comment: stable (7) CHF (congestive heart failure) Code(s): I50.9 - HEART FAILURE, UNSPECIFIED Status: Chronic Qualifiers: Heart failure type: combined systolic and diastolic Comment: stable (8) CKD (chronic kidney disease) stage 3, GFR 30-59 ml/min Status: Chronic Comment: stable (9) STEPHANIE (acute kidney injury) Code(s): N17.9 - ACUTE KIDNEY FAILURE, UNSPECIFIED Status: Resolved (10) Osteomyelitis of great toe of left foot Code(s): M86.9 - OSTEOMYELITIS, UNSPECIFIED Status: Acute - Plan hemostable -: for iv invanz and vanc at home, duration per -: dc pt home -: counselled reg keeping his left LE over pillows when upright * .
[2019-02-08 14:50] VITALS: BP 116/63; TEMP 97.8
--- NOTE | 2019-02-09 10:56 | DIS ---
DATE OF ADMISSION: 01/29/2019 DATE OF DISCHARGE: 02/08/2019 DISCHARGE DISPOSITION: Home. PRIMARY DISCHARGE DIAGNOSES: Left lower extremity cellulitis with osteomyelitis of left great toe. SECONDARY DISCHARGE DIAGNOSES: Peripheral vascular disease with recent femoral-popliteal; diabetes mellitus, type 2; history of ischemic cardiomyopathy with prior ejection fraction of 15%; peripheral vascular disease; history of ventricular tachycardia, on amiodarone; history of coronary artery bypass grafting; history of congestive heart failure, class B; and chronic kidney disease, stage 3, with acute kidney injury, resolved. PROCEDURES DONE DURING HOSPITALIZATION: Chest x-ray done showed cardiomegaly. No acute infiltrate. Left foot three-view x-ray done showed no fracture, subluxation, or bony lesion. Ultrasound of left lower extremity done showed no DVT, though subcutaneous edema of left lower extremity. White blood cell labeled nuclear scan done showed accumulation of white blood cell in the left big toe consistent with infection. He has had a PICC line placed on 02/07/2019 by Interventional Radiology. Blood cultures x2, no growth. Urine culture, no growth. H and H of 8 and 25, platelet count 170, white count of 4, and MCV 92. Discharge BUN and creatinine are 16 and 1.4. Albumin is 3.1. CRP on the 12th was 3.89. Liver enzymes within normal limits. Initial BUN and creatinine were 41 and 2.0. Serum iron 16, TIBC 241, and ferritin 216. INPATIENT CONSULTS: Dr. Kapadia for Infectious Disease and Dr. Velazquez for Vascular Surgery. DISCHARGE MEDICATIONS: 1. Invanz 1 g daily for at least 4 weeks. 2. Vancomycin 1 g daily for likely 4 weeks. 3. Aspirin 81 mg p.o. daily. 4. Plavix 75 mg p.o. daily. 5. Amiodarone 200 mg p.o. daily. 6. Lipitor 20 mg p.o. at bedtime. 7. Coreg 12.5 mg twice daily. 8. Duloxetine 30 mg p.o. daily. 9. Zetia 10 mg p.o. q.a.m. 10. Fish oil 1000 mg p.o. daily. 11. Neurontin 300 mg p.o. twice daily. 12. Glipizide 10 mg twice daily. 13. Levemir 20 units subcu at bedtime. 14. Humalog sliding scale. 15. Multivitamin one tablet once daily. 16. K-Dur 10 mEq p.o. daily. 17. Torsemide 10 mg p.o. q.a.m. 18. Ultram p.r.n. for pain. ALLERGIES: NO KNOWN DRUG ALLERGIES. DISCHARGE PLAN: The patient to follow up with Dr. Velazquez as advised and primary care physician in 1 week. BRIEF COURSE DURING HOSPITALIZATION: The patient initially got admitted on the 3rd with complaints of increasing edema of left lower extremity and fever of up to 103. The patient has had multiple workup done in view of ischemic ulcers on the left lower extremity with recent femoral-popliteal done for severe peripheral vascular disease. White blood cell nuclear scan done was suspicious for left great toe osteomyelitis. The patient was on IV antibiotics and has been switched over to Invanz and vancomycin for likely 4 to [address] Kapadia' direction. He was also evaluated by Dr. Velazquez. The patient has left lower extremity edema, which is likely dependent edema with the patient not compliant with keeping his foot off the ground. He has remained hemodynamically stable. He has been cleared for discharge by both Dr. Velazquez and Dr. Kapadia. Please see a [id number] documentation for the day of discharge on [facility]. Job ID: [id number] MTDD
== END 2019-02-08 15:52 | disposition home or self-care (01) | DRG 300 ==
LOC: ERS 18:28 → T4-A 22:10
PROVIDERS: ADMIT Internal Medicine; ATTEND Internal Medicine
PROC: 02HV33Z Insertion of Infusion Device into Superior Vena Cava, Percutaneous Approach (ICD-10-PCS; principal; 2019-02-07)
PROC: B548ZZA Ultrasonography of Superior Vena Cava, Guidance (ICD-10-PCS; 2019-02-07)
DX: E11.52 Type 2 diabetes mellitus with diabetic peripheral angiopathy with gangrene (principal); L03.116 Cellulitis of left lower limb; M86.8X8 Other osteomyelitis, other site; I13.0 Hypertensive heart and chronic kidney disease with heart failure and stage 1 through stage 4 chronic kidney disease, or unspecified chronic kidney disease; I50.22 Chronic systolic (congestive) heart failure; I96 Gangrene, not elsewhere classified; N17.9 Acute kidney failure, unspecified; I47.2 Ventricular tachycardia; Z66 Do not resuscitate; N18.3 Chronic kidney disease, stage 3 (moderate); E11.22 Type 2 diabetes mellitus with diabetic chronic kidney disease; F17.290 Nicotine dependence, other tobacco product, uncomplicated; D63.1 Anemia in chronic kidney disease; E11.621 Type 2 diabetes mellitus with foot ulcer; L97.529 Non-pressure chronic ulcer of other part of left foot with unspecified severity; I25.5 Ischemic cardiomyopathy; Z79.82 Long term (current) use of aspirin; Z95.810 Presence of automatic (implantable) cardiac defibrillator; Z79.899 Other long term (current) drug therapy; Z79.4 Long term (current) use of insulin; Z95.1 Presence of aortocoronary bypass graft; Z91.19 Patient's noncompliance with other medical treatment and regimen
CPT/HCPCS: 36415; 36416; 36569; 71045; 78806; 80048; 80053; 80069; 80202; 81003; 82728; 83540; 83550; 83605; 85025; 85046; 85652; 86140; 87040; 87086; 96365; 96367; A4641; A9521; C1751; J0696; J1644; J1825; J2543; J3370; J3490

== ENCOUNTER 2019-02-17 14:18 | Observation (INO) | payer MEDICARE, OTHER ==
--- NOTE | 2019-02-17 14:33 | CT ---
Exam: CT brain PROVIDED CLINICAL HISTORY: Left-sided facial droop and slurred speech COMPARISON: None FINDINGS: The ventricular system is normal in size and morphology. No evidence for intracranial hemorrhage or mass effect. The extracranial soft tissues and osseous structures demonstrate an unremarkable CT appearance. IMPRESSION: No evidence for intracranial hemorrhage or mass effect. Findings discussed with the referring clinici an to 2:31 PM 02/17/2019.
[2019-02-17 14:47] LABS: #Eosinphils 0.2 thou/uL (0.0-0.7); #Monocytes 0.5 thou/uL (0.11-0.59); #Neutrophils 3.1 thou/uL (1.40-6.50); %Basophils 0.7 % (0.0-1.0); %Eosinophils 3.7 % (0.0-10.0); %Lymphocytes 34.1 % (21.0-51.0); %Monocytes 8.4 % (0.0-10.0); %Neutrophils 53.2 % (42.0-75.0); Hemoglobin 10.5 g/dL (14.0-18.0); Mean Corpuscular HGB CONC 32.9 g/dL (32.0-36.0); Mean Corpuscular Hemoglobin 30.8 pg (27.0-31.0); Mean Corpuscular Volume 93.7 fL (78.0-98.0); Mean Platelet Volume 8.1 fL (7.4-10.4); Platelet Count 166 thou/uL (130-400); RBC Distribution Width 15.9 % (11.5-14.5); White Blood Cell (WBC) Count 5.9 thou/uL (4.8-10.8)
[2019-02-17 14:55] LABS: INR-International Normal Ratio 1.1; PTT 33.2 SEC (22.9-36.1); Prothrombin Time 13.9 SEC (12.0-14.7)
[2019-02-17 15:08] LABS: ALT (SGPT) 37 U/L (8-55); AST (SGOT) 34 U/L (5-34); Albumin 3.4 g/dL (3.4-4.8); Alkaline Phosphatase 80 U/L (40-150); Anion Gap 16 mmol/L (10-20); BUN (Urea Nitrogen) 33 mg/dL (8.4-25.7); Bilirubin, Total 0.4 mg/dL (0.2-1.2); CK (CPK) 192 U/L (30-200); Calc. Creatinine Clearance 0 mL/min (70-130); Calcium 8.9 mg/dL (7.8-10.44); Carbon Dioxide 24 mmol/L (23-31); Chloride 101 mmol/L (98-107); Estimated GFR-MDRD 32; Glucose 357 mg/dL (80-115); Potassium 4.1 mmol/L (3.5-5.1); Protein, Total 6.4 g/dL (5.8-8.1); Sodium 137 mmol/L (136-145)
[2019-02-17 15:30] LABS: CKMB 0.8 ng/mL (0-6.6)
[2019-02-17] MEDS ORDERED: Aspirin Chewable 81 MG TAB ONE (17:34)
[2019-02-17 17:56] LABS: Troponin I 0.031 ng/mL (< 0.028)
[2019-02-17] MEDS ORDERED: DAPTOmycin 500 MG in Sodium Chloride 0.9% 10 ML IVPB SCH (18:45)
[2019-02-17 20:07] VITALS: BMI 20.3
[2019-02-17 20:57] LABS: Troponin I 0.015 ng/mL (< 0.028)
[2019-02-17] MEDS ORDERED: Prevnar 13-Val Conj/PF 0.5 ML SYRINGE IM ONE (21:45)
[2019-02-17] MEDS ORDERED: Acetaminophen 325 MG TAB PO PRN (21:50)
[2019-02-17] MEDS ORDERED: Ondansetron PF 4 MG/2 ML Vial IVP PRN (21:50)
[2019-02-17] MEDS ORDERED: Ondansetron ODT 4 MG TAB PO PRN (21:50)
[2019-02-17] MEDS ORDERED: Acetaminophen 650 MG Suppository PR PRN (21:50)
--- NOTE | 2019-02-17 22:50 | RAD ---
XR Chest 1 View History: TIA Comparison: Chest radiograph January 29, 2019 Findings: Heart size is enlarged. Right PICC is in place in good position. The AICD/pacer is in good position. No pneumothorax. No effusion. Evidence of prior injury right coracoclavicular ligament. Impression: Cardiomegaly. No acute intrathoracic abnormality.
[2019-02-17] MEDS ORDERED: Dextrose 50% Abboject 50 ML SYRINGE SLOW IVP PRN (23:20)
[2019-02-17] MEDS ORDERED: Dextrose 5% in Water 1,000 ML IV PRN (23:20)
--- NOTE | 2019-02-18 00:33 | HP ---
PRIMARY CARE PHYSICIAN: Sherly Massey MD CODE STATUS: Full code. TIME OF EVALUATION: 9:00 p.m. CHIEF COMPLAINT: Slurred speech. HISTORY OF PRESENT ILLNESS: This is a 68-year-old male patient with past medical history of cardiomyopathy, ventricular tachycardia, defibrillator, type 2 diabetes, hyperlipidemia, hypertension, PVDs, came to the hospital after having an episode of slurred speech and facial droop on the right side with no clear triggers, no alleviating factors. The symptoms started around 12:30 and lasted for a few hours; however, had been getting better and by the time of my examination, the symptoms have disappeared. The history is being given by the since the patient is not a good historian. The symptoms were mild to moderate. REVIEW OF SYSTEMS: CONSTITUTIONAL: No fever, chills, or generalized weakness. RESPIRATORY: No cough, sputum production, or shortness of breath. CARDIOVASCULAR: No chest pain, or palpitation. GASTROINTESTINAL: No nausea, vomiting, diarrhea, or abdominal pain. BUTTON TACKER: No dizziness, headache, or feeling lightheaded. The patient did have a slurred speech and also right-sided facial droop. GENITOURINARY: No burning on urination. EXTREMITIES: No leg swelling. All other systems were reviewed and negative except for the findings mentioned above. PAST MEDICAL HISTORY: As mentioned in the HPI. PAST SURGICAL HISTORY: The patient has a history of stent in the right leg, cardiac catheterization, pacemakers, CABG surgery x4 vessels, cardiac ablation x2, femoral-popliteal bypass in 2016 and December 2018. PSYCHIATRIC HISTORY: No psychiatric history. SOCIAL HISTORY: No drugs, no alcohol. The patient uses tobacco. FAMILY HISTORY: Reviewed and noncontributory for current presentation. KNOWN ALLERGIES: No known drug allergies. REPORTED MEDICATIONS: 1. Plavix. 2. Aspirin. 3. Torsemide. 4. Carvedilol. 5. Amiodarone. 6. Glipizide. 7. Lantus. 8. Humalog. 9. Gabapentin. 10. Hydrocodone. PHYSICAL EXAMINATION: VITAL SIGNS: On presentation, blood pressure 120/74 with heart rate 72, respiratory rate was 16, temperature 97.8, pain was 0/10, oxygen saturation 98% on room air. GENERAL APPEARANCE: The patient is alert, oriented, not in acute distress. HEENT: Eyes, normal conjunctivae. Moist oral mucosa. Anicteric. No JVD. RESPIRATORY: Bilateral air entry. No rales. No wheezing. Symmetric expansion. CARDIOVASCULAR: Normal rate, regular rhythm. No murmurs. No gallop. No edema. ABDOMEN: Soft. Normal bowel sounds. MUSCULOSKELETAL: Baseline range of motion and strength. SKIN: Warm, intact. No pallor. No rash. No redness except for the left lower extremity, the patient has great toe blackish area due to PVD, this is chronic, as per this is being getting better. Also, there is some swelling on the left lower extremity and redness. Capillary refill seems to be intact. NEUROLOGIC: No evidence of any new focal weakness. Cranial nerves seems to be intact. PSYCHIATRIC: The patient is in good mood. No anxiety. Optimal judgment. DIAGNOSTIC DATA: EKG was reviewed. The patient has sequential dual chamber electronic pacemaker. Brain CT, impression, no evidence of intracranial hemorrhage or mass effect. Chest x-ray was reviewed. The patient had cardiomegaly. No acute intrathoracic abnormality. LABORATORY DATA: Reviewed. The patient has white count 5.9, hemoglobin 10.5, MCV 93.7, platelet count 166. Coagulation was normal. Chemistry; sodium 137, potassium 4.1, chloride 101, carbon dioxide 24, anion gap 16, BUN 33, creatinine 2.06. In previous admission, 10 days ago, the creatinine was 1.45. Glucose 357, calcium 9.9. LFTs were negative. Troponin, initial one 0.031, second one 0.031, third one 0.015. ASSESSMENT AND PLAN: The patient will be placed in the hospital with following medical problems: 1. Possible transient ischemic attack. The patient has slurred speech and also right-sided facial drooping. Symptoms are gone by the time of my examination. We will do a stroke protocol except for the MRI since the patient has ICD. We will follow recommendations from Neurology. 2. Chronic normocytic anemia. This is likely secondary to chronic kidney failure. This is mild, can be followed as outpatient. No need for any acute intervention at this point. 3. Acute on chronic kidney disease. Unclear etiology. Creatinine is 2.0, on previous admission was 1.45, that was 10 days ago. We will hydrate, we will monitor. Might need Nephrology if kidney function does not improve. 4. Uncontrolled diabetes. We will reconcile home medications. We will place the patient on sliding scale for optimal control. 5. Very mild elevation in troponin, which seems to be nonsignificant. No evidence of acute coronary syndrome. 6. High cholesterol, low-cholesterol diet is advised. Reconcile home medications. 7. History of hypertension that is controlled right now. We will allow permissive hypertension due to new onset of neurological changes. 8. History of peripheral vascular disease that is severe. Reconcile home medications. No need for any acute intervention during this admission. 9. Deep venous thrombosis prophylaxis. Job ID: [id number]
[2019-02-18 06:03] LABS: #Eosinphils 0.1 thou/uL (0.0-0.7); #Lymphocytes 0.8 thou/uL (1.20-3.40); #Monocytes 0.4 thou/uL (0.11-0.59); #Neutrophils 3.4 thou/uL (1.40-6.50); %Basophils 0.5 % (0.0-1.0); %Eosinophils 1.9 % (0.0-10.0); %Lymphocytes 16.7 % (21.0-51.0); %Monocytes 7.8 % (0.0-10.0); %Neutrophils 73.2 % (42.0-75.0); Hemoglobin 10.6 g/dL (14.0-18.0); Mean Corpuscular HGB CONC 33.1 g/dL (32.0-36.0); Mean Corpuscular Volume 93.5 fL (78.0-98.0); Mean Platelet Volume 7.8 fL (7.4-10.4); Platelet Count 148 thou/uL (130-400); RBC Distribution Width 15.8 % (11.5-14.5); Red Blood Cell (RBC) Count 3.43 mill/uL (4.70-6.10); White Blood Cell (WBC) Count 4.7 thou/uL (4.8-10.8)
[2019-02-18 06:26] LABS: Anion Gap 15 mmol/L (10-20); BUN (Urea Nitrogen) 31 mg/dL (8.4-25.7); Calc. Creatinine Clearance 44 mL/min (70-130); Calcium 9.3 mg/dL (7.8-10.44); Carbon Dioxide 26 mmol/L (23-31); Cardiac Risk 6.1 (Less than 4.5); Chloride 106 mmol/L (98-107); Cholesterol 158 mg/dl (< 200 Desired); Estimated GFR-MDRD 43; Glucose 170 mg/dL (80-115); HDL Cholesterol 26 mg/dL (>60 Neg Risk); LDL Cholesterol, Calculated 75 mg/dL; Potassium 3.7 mmol/L (3.5-5.1); Sodium 143 mmol/L (136-145); Triglycerides 285 mg/dL (Less than 150)
[2019-02-18] MEDS: HumaLOG 300 UNITS/3 ML VIAL SC PRN ×2 (06:30→13:52)
[2019-02-18] MEDS ORDERED: traMADol HCl 50 MG TAB PO PRN (08:51)
[2019-02-18] MEDS ORDERED: MEROPENEM 1 GM/50 ML BAG IVPB SCH (09:00)
[2019-02-18] MEDS: Enoxaparin Sodium 40 MG/0.4 ML SYRINGE SC SCH (09:41)
[2019-02-18] MEDS: Gabapentin 300 MG CAP PO SCH ×2 (09:42→20:29)
[2019-02-18] MEDS: Torsemide 20 MG TAB PO SCH (09:42)
[2019-02-18] MEDS: Amiodarone 200 MG TAB PO SCH (09:42)
[2019-02-18] MEDS: Aspirin Chewable 81 MG TAB PO SCH (09:42)
[2019-02-18] MEDS: Clopidogrel Bisulfate 75 MG TAB PO SCH (09:43)
[2019-02-18] MEDS: Ezetimibe 10 MG TAB PO SCH (09:43)
[2019-02-18] MEDS: DULoxetine 30 MG CAP PO SCH (09:43)
[2019-02-18] MEDS: Carvedilol 6.25 MG TAB PO SCH ×2 (09:43→20:29)
[2019-02-18] MEDS ORDERED: DAPTOMYCIN IVPB PRN (11:26)
--- NOTE | 2019-02-18 15:33 | ULT ---
EXAM: Carotid Doppler PROVIDED CLINICAL HISTORY: TIA COMPARISON: None FINDINGS: Grayscale and color Doppler sonography with spectral analysis was performed of the extracranial carot id system bilaterally. Elevation of peak systolic velocity within the proximal left internal carotid artery to 210 cm/s with corresponding ICA/CCA ratio of 3. No evidence for hemodynamically sig nificant right internal carotid artery stenosis. Antegrade flow is seen in the left vertebral artery. Nonvisualization of the right vertebral artery. IMPRESSION: Findings compatible with 50-69% stenosis involving the proximal left ICA.
--- NOTE | 2019-02-18 16:28 | PDOC.PN ---
- Subjective Encounter Start Date: 02/18/19 Encounter Start Time: 09:30 Subjective: Patient examined, is in no apparent distress -: Reports slurring speech and facial droop resolved yesterday -: Denies any new complaints - Objective Resuscitation Status - Order Detail: 02/17/19 21:50 Resuscitation Status Routine Resuscitation Status: FULL: Full Resuscitation Vital Signs & Weight: Vital Signs (12 hours) Temp Pulse Pulse Pulse Resp BP BP 02/18/19 15:33 97.4 F L 81 16 02/18/19 15:03 78 87 109/69 02/18/19 11:53 98 F 72 17 02/18/19 09:43 101/64 02/18/19 08:00 98 F 78 16 02/18/19 04:56 97.5 F L 70 18 BP BP Pulse Ox 02/18/19 15:33 107/71 99 02/18/19 15:03 139/77 02/18/19 11:53 93/57 L 100 02/18/19 09:43 02/18/19 08:00 95/56 L 98 02/18/19 04:56 101/61 97 Weight Weight 70 kg I&O: 02/17/19 02/18/19 02/19/19 06:59 06:59 06:59 Intake Total 236 Output Total 2 Balance 234 Result Diagrams: 02/18/19 05:43 02/18/19 05:43 Additional Labs: Accuchecks 02/18/19 02/18/19 02/17/19 10:56 05:43 20:38 POC Glucose 194 H 188 H 201 H Phys Exam - Physical Examination HEENT: PERRLA, moist MMs Neck: no nodes, no JVD Respiratory: clear to auscultation bilateral Gastrointestinal: soft, non-tender Musculoskeletal: no edema Neurological: non-focal, moves all 4 limbs Lymphatic: no nodes Psychiatric: normal affect, A&O x 3 Skin: no rash Deviation from normal: Left great toe with healing ulceration, Dx/Plan (1) Osteomyelitis of great toe of left foot Code(s): M86.9 - OSTEOMYELITIS, UNSPECIFIED Status: Chronic (2) CAD (coronary artery disease) Code(s): I25.10 - ATHSCL HEART DISEASE OF [place] CORONARY ARTERY W/O ANG PCTRS Status: Chronic Qualifiers: Coronary Disease-Associated Artery/Lesion type: bypass graft [place] vs. transplanted heart: [place] heart Associated angina: without angina Qualified Code(s): I25.810 - Atherosclerosis of coronary artery bypass graft(s) without angina pectoris Comment: stable (3) CHF (congestive heart failure) Code(s): I50.9 - HEART FAILURE, UNSPECIFIED Status: Chronic Qualifiers: Heart failure type: combined systolic and diastolic Comment: stable (4) CKD (chronic kidney disease) stage 3, GFR 30-59 ml/min Status: Chronic Comment: stable (5) Diabetes mellitus Code(s): E11.9 - TYPE 2 DIABETES MELLITUS WITHOUT COMPLICATIONS Status: Chronic Qualifiers: Diabetes mellitus type: type 2 Diabetes mellitus long term care pharmacist insulin use: with shelter use Diabetes mellitus complication status: with kidney complications Diabetes mellitus complication detail: with chronic kidney disease Chronic kidney disease stage: stage 3 (moderate) Qualified Code(s): E11.22 - Type 2 diabetes mellitus with diabetic chronic kidney disease; N18.3 - Chronic kidney disease, stage 3 (moderate); Z79.4 - termination clerk (current) use of insulin (6) Ischemic cardiomyopathy Code(s): I25.5 - ISCHEMIC CARDIOMYOPATHY Status: Chronic Comment: with ef of 15%, graft to lad is patent per cath 2016 (7) PVD (peripheral vascular disease) Code(s): I73.9 - PERIPHERAL VASCULAR DISEASE, UNSPECIFIED Status: Chronic Comment: stable (8) TIA (transient ischemic attack) Code(s): G45.9 - TRANSIENT CEREBRAL ISCHEMIC ATTACK, UNSPECIFIED Status: Acute - Plan Will continue IV ABX (he was receiving as an Outpt via Dr. Kapadia). -: Carotid Doppler with evidence of stenosis, has a significant history of -: vascular and kidney disease. Neuro has been consulted. Will need to weigh -: necessity of CTA with current comorbidities and neuro recommendations. -: Will recheck labs in AM. Echo results pending * .
[2019-02-18] MEDS ORDERED: DAPTOmycin 500 MG in Sodium Chloride 0.9% 10 ML IVPB SCH (17:00)
[2019-02-18] MEDS ORDERED: DAPTOmycin 500 MG in Sodium Chloride 0.9% 100 ML IVPB SCH (17:00)
--- NOTE | 2019-02-18 17:52 | CON ---
DATE OF CONSULTATION: CONSULTING PHYSICIAN: Hospitalist Service. IMPRESSION: 1. Possible transient ischemic attack with transient dysarthria. 2. The patient is currently on maximum medical therapy. PLAN: 1. Continue his current regimen, aspirin, Plavix, and statin. 2. Carotid ultrasound. 3. Review echocardiogram. HISTORY OF PRESENT ILLNESS: Mr. Magana is a 68-year-old man with a known cardiac history. He is followed by Dr. De La Garza. He has known cardiomyopathy, which he reports his ejection fraction is between 15% and 20%. He has also AICD in place. He apparently was at a birthday constitution party with family when they thought that he was having some slurred speech. By his assessment, he did not think he was having any slurred speech. He does not recognize any lateralized weakness or numbness. He had a CT of the brain done, which was unremarkable as he reports at this time he is at his baseline and has no new focal complaints. PAST MEDICAL HISTORY: Coronary artery disease, diabetes, peripheral vascular disease, congestive heart failure, ventricular tachycardia, hyperlipidemia, and hypertension. ALLERGIES: NONE REPORTED. SOCIAL HISTORY: Positive for tobacco use. FAMILY HISTORY: Noncontributory. REVIEW OF SYSTEMS: Ten-system review of systems is otherwise negative. PHYSICAL EXAMINATION: GENERAL: He is a well-nourished, middle-aged man, in no distress. VITAL SIGNS: Blood pressure 95/56, pulse 78, respirations 16, and temperature 98. HEENT: Pupils are equal and reactive. Conjunctivae clear. Oropharynx clear. Cranium, normocephalic and atraumatic. NECK: Supple. No lymphadenopathy. EXTREMITIES: He has ulcerated wound on the great toe of the left foot. There is some mild peripheral edema present. Pulses are poor. NEUROLOGIC: He is alert and cooperative. His speech is fluent and clear. Cranial nerves were intact. Motor exam showed good strength bilaterally. There is no fix or drift. Sensation was intact to touch. [id number] and rapid alternating movements were equal. He can sit, stand, and walk independently. No abnormal movements were seen. IMAGING STUDIES: EKG showed a paced rhythm. SUMMARY: Middle-aged man with multiple risk factors for vascular disease, who presents with some questionable dysarthria. His workup is underway. Given his peripheral vascular disease and other issues, from a cardiac perspective, I do not think we can make any changes in his treatment. I would leave it to Dr. De La Garza to make adjustments when he sees him in followup. Job ID: [id number]
[2019-02-18] MEDS ORDERED: Ertapenem 1 GM in Sodium Chloride 0.9% 100 ML IVPB SCH (18:00)
[2019-02-18] MEDS ORDERED: Atorvastatin Calcium 20 MG TAB PO SCH (21:00)
[2019-02-18] MEDS ORDERED: Non-Formulary Item 1 EACH (Insulin Detemir [Levemir Flextouch] 20 UNITS) SQ SCH (21:00)
[2019-02-18] MEDS ORDERED: Insulin Glargine 20 UNITS in Pre-Filled Syringe 1 EACH SC SCH (21:00)
[2019-02-18] MEDS ORDERED: Atorvastatin Calcium 40 MG TAB PO SCH (21:00)
[2019-02-19] MEDS: Gabapentin 300 MG CAP PO SCH (08:45)
[2019-02-19] MEDS: Ezetimibe 10 MG TAB PO SCH (08:45)
[2019-02-19] MEDS: Torsemide 20 MG TAB PO SCH (08:45)
[2019-02-19] MEDS: DULoxetine 30 MG CAP PO SCH (08:45)
[2019-02-19] MEDS: Amiodarone 200 MG TAB PO SCH (08:45)
[2019-02-19] MEDS: Enoxaparin Sodium 40 MG/0.4 ML SYRINGE SC SCH (08:45)
[2019-02-19] MEDS: Aspirin Chewable 81 MG TAB PO SCH (08:46)
[2019-02-19] MEDS: Carvedilol 6.25 MG TAB PO SCH (08:46)
[2019-02-19] MEDS: Clopidogrel Bisulfate 75 MG TAB PO SCH (08:46)
[2019-02-19] MEDS ORDERED: Carvedilol 6.25 MG TAB PO SCH (09:00)
--- NOTE | 2019-02-19 12:09 | ULT ---
US Venous Doppler Rt Unilat History: Pain. Edema. PICC line in place. Comparison: None. Findings: Real-time grayscale, color, and spectral analysis of the right upper extremity venous syste m was performed. The internal jugular, subclavian, axillary veins as well as the brachial, basilic, ulnar, radial veins and cephalic veins were interrogated. Appears be a PICC with the cephalic vein. No thrombosis is appreciated. Impression: No deep venous thrombosis. Evaluation of thrombus in the cephalic vein is limited due to the indwelling catheter.
[2019-02-19 13:06] LABS: Anion Gap 14 mmol/L (10-20); BUN (Urea Nitrogen) 28 mg/dL (8.4-25.7); Calc. Creatinine Clearance 45 mL/min (70-130); Calcium 9.7 mg/dL (7.8-10.44); Carbon Dioxide 30 mmol/L (23-31); Chloride 101 mmol/L (98-107); Estimated GFR-MDRD 43; Glucose 192 mg/dL (80-115); Potassium 4.3 mmol/L (3.5-5.1); Sodium 141 mmol/L (136-145)
[2019-02-19] MEDS ORDERED: DAPTOmycin 500 MG in Sodium Chloride 0.9% 100 ML IVPB SCH (14:00)
[2019-02-19] MEDS ORDERED: Ertapenem 1 GM in Sodium Chloride 0.9% 100 ML IVPB SCH (15:00)
[2019-02-19 15:47] VITALS: BP 95/63; TEMP 98.8
[2019-02-20] MEDS ORDERED: Meropenem 1 GM in Sodium Chloride 0.9% 100 ML IVPB SCH (15:00)
--- NOTE | 2019-02-23 09:05 | EKG ---
Test Reason : STROKE SS Blood Pressure : / mmHG Vent. Rate : 071 BPM Atrial Rate : 071 BPM P-R Int : 000 ms QRS Dur : 208 ms QT Int : 558 ms P-R-T Axes : 084 -70 113 degrees QTc Int : 606 ms AV sequential or dual chamber electronic pacemaker Confirmed by CHARITY ROSEN DO [id number]), legal editor CELESTINO RIVERS ([id number] on 02/23/2019 9:05:33 AM Referred By: Confirmed By:CHARITY ROSEN DO
== END 2019-02-19 16:42 | disposition home or self-care (01) ==
LOC: ERS 14:18 → 2SE 15:30
PROVIDERS: ADMIT Internal Medicine; ATTEND Internal Medicine
DX: G45.9 Transient cerebral ischemic attack, unspecified (principal); R47.81 Slurred speech; R29.810 Facial weakness; I25.5 Ischemic cardiomyopathy; E78.5 Hyperlipidemia, unspecified; F17.290 Nicotine dependence, other tobacco product, uncomplicated; I13.0 Hypertensive heart and chronic kidney disease with heart failure and stage 1 through stage 4 chronic kidney disease, or unspecified chronic kidney disease; E11.22 Type 2 diabetes mellitus with diabetic chronic kidney disease; N18.3 Chronic kidney disease, stage 3 (moderate); I50.42 Chronic combined systolic (congestive) and diastolic (congestive) heart failure; N17.9 Acute kidney failure, unspecified; D63.1 Anemia in chronic kidney disease; I25.10 Atherosclerotic heart disease of native coronary artery without angina pectoris; E11.51 Type 2 diabetes mellitus with diabetic peripheral angiopathy without gangrene; M86.672 Other chronic osteomyelitis, left ankle and foot; Z79.02 Long term (current) use of antithrombotics/antiplatelets; Z79.4 Long term (current) use of insulin; Z79.82 Long term (current) use of aspirin; Z79.899 Other long term (current) drug therapy; Z95.5 Presence of coronary angioplasty implant and graft; Z95.810 Presence of automatic (implantable) cardiac defibrillator; Z95.828 Presence of other vascular implants and grafts; Z98.890 Other specified postprocedural states
CPT/HCPCS: 70450; 71045; 80048 ×2; 80053; 80061; 82550; 82553; 82962 ×3; 84484 ×2; 85025 ×2; 85610; 85730; 93005; 93306; 93880; 93971; 94760; 96365; 96366 ×2; 96367; 96372 ×2; 96375; 97139 ×4; 99285; G0378 ×2; J0878 ×3; 36415; 36416; J1335; J1650; J1815; J2185; J2405; J3490

== ENCOUNTER 2019-06-24 17:02 | Emergency (ER) | payer MEDICARE, OTHER ==
[2019-06-24 17:54] LABS: Hemoglobin 12.1 g/dL (14.0-18.0); Mean Corpuscular HGB CONC 32.9 g/dL (32.0-36.0); Mean Corpuscular Hemoglobin 30.5 pg (27.0-31.0); Mean Corpuscular Volume 92.8 fL (78.0-98.0); Mean Platelet Volume 8.8 fL (7.4-10.4); Platelet Count 125 thou/uL (130-400); RBC Distribution Width 14.5 % (11.5-14.5); Red Blood Cell (RBC) Count 3.98 mill/uL (4.70-6.10); White Blood Cell (WBC) Count 9.8 thou/uL (4.8-10.8)
--- NOTE | 2019-06-24 17:59 | RAD ---
Exam: Chest one view HISTORY:Fever. Weakness. Malaise. Comparison: 01/29/2019, 02/17/2019 FINDINGS: Stable sternotomy wires and left-sided transvenous defibrillator. Cardiac silhouette:Stable cardiomegaly. Aorta: Unremarkable Pulmonary vessels: Normal Costophrenic angles: Clear LUNGS: No masses or consolidation. Chronic changes in the lung bases. Pneumothorax: None Osseous abnormalities: Changes in the right acromioclavicular region. IMPRESSION: No acute cardiopulmonary process. Cardiomegaly. No evidence of congestive heart failure.
[2019-06-24 18:16] LABS: ALT (SGPT) 30 U/L (8-55); AST (SGOT) 25 U/L (5-34); Albumin 3.9 g/dL (3.4-4.8); Alkaline Phosphatase 65 U/L (40-110); Anion Gap 14 mmol/L (10-20); BUN (Urea Nitrogen) 28 mg/dL (8.4-25.7); Bilirubin, Total 0.6 mg/dL (0.2-1.2); Calc. Creatinine Clearance 0 mL/min (70-130); Calcium 9.1 mg/dL (7.8-10.44); Carbon Dioxide 26 mmol/L (23-31); Chloride 99 mmol/L (98-107); Estimated GFR-MDRD 36; Globulin 3.1 g/dL (2.4-3.5); Glucose 217 mg/dL (80-115); Lipase 39 U/L (8-78); Potassium 3.8 mmol/L (3.5-5.1); Sodium 135 mmol/L (136-145)
[2019-06-24 18:17] LABS: Band 25 % (5-11); Elliptocytes SLIGHT = 2-5 cells (100X) (0-1/hpf); Eosinophils 3 % (0-10); Lymphocytes 5 % (21-51); MDiff Complete? YES; Monocytes 2 % (0-10); Neutrophil 59 % (42-75); Platelet Morphology Comment Appears Decreased; Polychromasia SLIGHT = 2-3 cells (100X) (0-2/hpf); Reactive Lymphocytes 6 % (0-10); Tear Drops SLIGHT = 2-5 cells (100X) (0-1/hpf)
[2019-06-24 19:13] LABS: Bilirubin Negative (Negative); Blood, Urine Negative (Negative); Clarity Clear (Clear); Glucose, Urine (Dipstick) Normal (Negative); Leukocyte Negative Leu/uL (Negative); Nitrite Negative (Negative); Protein, Urine (Dipstick) 20 mg/dL (Neg-Trace); Urobilinogen Normal mg/dL (Less than 2)
[2019-06-24] MEDS ORDERED: Ibuprofen 800 MG TAB ONE (20:41)
== END 2019-06-24 21:40 | disposition home or self-care (01) ==
LOC: ERS 17:02
DX: R50.9 Fever, unspecified (principal); R53.1 Weakness; E78.5 Hyperlipidemia, unspecified; E11.51 Type 2 diabetes mellitus with diabetic peripheral angiopathy without gangrene; I11.0 Hypertensive heart disease with heart failure; I50.9 Heart failure, unspecified; F17.290 Nicotine dependence, other tobacco product, uncomplicated; Z79.899 Other long term (current) drug therapy; Z79.4 Long term (current) use of insulin
CPT/HCPCS: 36415; 71045; 80053; 81003; 83690; 83880; 84484; 85025; 87804; 93005

== ENCOUNTER 2020-12-18 14:08 | Emergency (ER) | payer MEDICARE, OTHER ==
[2020-12-18 14:59] LABS: #Eosinphils 0.2 thou/uL (0.0-0.7); #Monocytes 0.5 thou/uL (0.11-0.59); #Neutrophils 3.9 thou/uL (1.40-6.50); %Basophils 0.2 % (0.0-1.0); %Eosinophils 3.2 % (0.0-10.0); %Lymphocytes 30.7 % (21.0-51.0); %Monocytes 7.1 % (0.0-10.0); %Neutrophils 58.8 % (42.0-75.0); Hemoglobin 10.8 g/dL (14.0-18.0); Mean Corpuscular HGB CONC 34.1 g/dL (32.0-36.0); Mean Corpuscular Hemoglobin 33.1 pg (27.0-31.0); Mean Corpuscular Volume 97.3 fL (78.0-98.0); Mean Platelet Volume 8.2 fL (7.4-10.4); Platelet Count 124 thou/uL (130-400); RBC Distribution Width 15.6 % (11.5-14.5); Red Blood Cell (RBC) Count 3.27 mill/uL (4.70-6.10); White Blood Cell (WBC) Count 6.6 thou/uL (4.8-10.8)
[2020-12-18 15:21] LABS: ALT (SGPT) 28 U/L (8-55); AST (SGOT) 27 U/L (5-34); Alkaline Phosphatase 70 U/L (40-110); Anion Gap 14 mmol/L (10-20); BUN (Urea Nitrogen) 41 mg/dL (8.4-25.7); Bilirubin, Total 0.6 mg/dL (0.2-1.2); Calc. Creatinine Clearance 0 mL/min (70-130); Calcium 9.2 mg/dL (7.8-10.44); Carbon Dioxide 27 mmol/L (23-31); Chloride 101 mmol/L (98-107); Globulin 2.6 g/dL (2.4-3.5); Glucose 204 mg/dL (80-115); Potassium 4.1 mmol/L (3.5-5.1); Protein, Total 6.6 g/dL (5.8-8.1); Sodium 138 mmol/L (136-145)
== END 2020-12-18 17:15 | disposition left against medical advice (07) ==
LOC: ERS 14:08
DX: R42 Dizziness and giddiness (principal); I42.9 Cardiomyopathy, unspecified; I49.9 Cardiac arrhythmia, unspecified; E11.9 Type 2 diabetes mellitus without complications; E78.5 Hyperlipidemia, unspecified; E78.00 Pure hypercholesterolemia, unspecified; E78.1 Pure hyperglyceridemia; I50.9 Heart failure, unspecified; F17.290 Nicotine dependence, other tobacco product, uncomplicated; Z79.899 Other long term (current) drug therapy; Z79.4 Long term (current) use of insulin
CPT/HCPCS: 70450; 71045; 80053; 84484; 85025; 93005

== ENCOUNTER 2020-12-29 13:02 | Inpatient (IN) | payer MEDICARE, OTHER ==
[~2020-12-29 13:02] MED LIST changes: -Heparin 1,000 UNITS/ML VIAL ONE; +Iopamidol-370 76% 500 ML 1 ML ONE
[2020-12-29 13:24] LABS: #Basophils 0.1 thou/uL (0.0-0.2); #Eosinphils 0.2 thou/uL (0.0-0.7); #Lymphocytes 2.6 thou/uL (1.20-3.40); #Monocytes 0.5 thou/uL (0.11-0.59); #Neutrophils 3.6 thou/uL (1.40-6.50); %Basophils 0.9 % (0.0-1.0); %Eosinophils 2.9 % (0.0-10.0); %Lymphocytes 37.2 % (21.0-51.0); %Monocytes 6.5 % (0.0-10.0); %Neutrophils 52.5 % (42.0-75.0); Hemoglobin 8.2 g/dL (14.0-18.0); Mean Corpuscular HGB CONC 33.8 g/dL (32.0-36.0); Mean Corpuscular Hemoglobin 33.3 pg (27.0-31.0); Mean Corpuscular Volume 98.4 fL (78.0-98.0); Mean Platelet Volume 8.1 fL (7.4-10.4); Platelet Count 123 thou/uL (130-400); Red Blood Cell (RBC) Count 2.46 mill/uL (4.70-6.10); White Blood Cell (WBC) Count 6.9 thou/uL (4.8-10.8)
[2020-12-29 13:29] LABS: PTT 28.9 sec (22.9-36.1); Prothrombin Time 13.7 sec (12.0-14.7)
[2020-12-29 13:53] LABS: ALT (SGPT) 19 U/L (8-55); AST (SGOT) 19 U/L (5-34); Albumin 3.8 g/dL (3.4-4.8); Alkaline Phosphatase 54 U/L (40-110); Anion Gap 15 mmol/L (10-20); BUN (Urea Nitrogen) 45 mg/dL (8.4-25.7); Bilirubin, Total 0.4 mg/dL (0.2-1.2); CK (CPK) 127 U/L (30-200); Calc. Creatinine Clearance 0 mL/min (70-130); Calcium 8.5 mg/dL (7.8-10.44); Carbon Dioxide 25 mmol/L (23-31); Chloride 104 mmol/L (98-107); Globulin 2.6 g/dL (2.4-3.5); Glucose 197 mg/dL (80-115); Potassium 3.9 mmol/L (3.5-5.1); Protein, Total 6.4 g/dL (5.8-8.1); Sodium 140 mmol/L (136-145)
[2020-12-29 15:11] LABS: SARS-CoV-2 NAA Rapid Test Not Detected (NotDetected)
[2020-12-29] MEDS ORDERED: Ondansetron ODT 4 MG TAB SL PRN (15:15)
[2020-12-29] MEDS ORDERED: Ondansetron PF 4 MG/2 ML Vial IVP PRN (15:15)
[2020-12-29] MEDS ORDERED: Labetalol HCl 100 MG/20 ML VIAL SLOW IVP PRN (16:19)
[2020-12-29] MEDS: Sodium Chloride 0.9% 1,000 ML IV SCH (19:40)
[2020-12-29] MEDS: Atorvastatin Calcium 40 MG TAB PO SCH (19:47)
[2020-12-29] MEDS: Communication Order-Pharmacy FS SCH (21:16)
[2020-12-30] MEDS: Sodium Chloride 0.9% 1,000 ML IV SCH ×2 (00:06→19:40)
[2020-12-30] MEDS ORDERED: Dextrose 5% in Water 1,000 ML IV PRN (13:22)
[2020-12-30] MEDS ORDERED: Dextrose 50% Abboject 50 ML SYRINGE SLOW IVP PRN (13:22)
[2020-12-30] MEDS: HumaLOG 300 UNITS/3 ML VIAL SC SCH ×2 (13:34→16:54)
[2020-12-30] MEDS ORDERED: Sodium Chloride 0.9% 1,000 ML IV SCH (16:07)
[2020-12-30] MEDS: Communication Order-Pharmacy FS SCH (17:09)
[2020-12-30] MEDS: Atorvastatin Calcium 40 MG TAB PO SCH (19:37)
[2020-12-30] MEDS ORDERED: Melatonin 3 MG TAB PO PRN (20:57)
[2020-12-30] MEDS ORDERED: Aspirin 325 mg Enteric Coated Tablet PO SCH (21:00)
[2020-12-30] MEDS ORDERED: Enoxaparin Sodium 40 MG/0.4 ML SYRINGE SC SCH (21:00)
[2020-12-30] MEDS ORDERED: Clopidogrel Bisulfate 75 MG TAB PO SCH (21:00)
[2020-12-31 04:01] LABS: Hemoglobin A1c 5.5 % (4.0-6.0)
[2020-12-31 04:03] LABS: #Eosinphils 0.1 thou/uL (0.0-0.7); #Lymphocytes 1.6 thou/uL (1.20-3.40); #Monocytes 0.4 thou/uL (0.11-0.59); #Neutrophils 3.5 thou/uL (1.40-6.50); %Basophils 0.4 % (0.0-1.0); %Eosinophils 2.5 % (0.0-10.0); %Lymphocytes 28.4 % (21.0-51.0); %Monocytes 6.6 % (0.0-10.0); %Neutrophils 62.2 % (42.0-75.0); Hemoglobin 6.4 g/dL (14.0-18.0); Mean Corpuscular HGB CONC 33.6 g/dL (32.0-36.0); Mean Corpuscular Hemoglobin 33.6 pg (27.0-31.0); Mean Platelet Volume 8.4 fL (7.4-10.4); Platelet Count 107 thou/uL (130-400); RBC Distribution Width 16.6 % (11.5-14.5); White Blood Cell (WBC) Count 5.6 thou/uL (4.8-10.8)
[2020-12-31 04:12] LABS: ALT (SGPT) 17 U/L (8-55); AST (SGOT) 15 U/L (5-34); Albumin 3.3 g/dL (3.4-4.8); Alkaline Phosphatase 41 U/L (40-110); Anion Gap 12 mmol/L (10-20); BUN (Urea Nitrogen) 29 mg/dL (8.4-25.7); Bilirubin, Total 0.4 mg/dL (0.2-1.2); Calc. Creatinine Clearance 50 mL/min (70-130); Calcium 8.7 mg/dL (7.8-10.44); Carbon Dioxide 21 mmol/L (23-31); Cardiac Risk 5.3 (Less than 4.5); Chloride 114 mmol/L (98-107); Cholesterol 101 mg/dl (< 200 Desired); Globulin 2.3 g/dL (2.4-3.5); Glucose 202 mg/dL (80-115); HDL Cholesterol 19 mg/dL (>60 Neg Risk); LDL Cholesterol, Calculated 27 mg/dL; Potassium 3.7 mmol/L (3.5-5.1); Protein, Total 5.6 g/dL (5.8-8.1); Sodium 143 mmol/L (136-145); Triglycerides 276 mg/dL (Less than 150)
[2020-12-31] MEDS ORDERED: Ondansetron PF 4 MG/2 ML Vial IVP PRN (04:22)
[2020-12-31] MEDS ORDERED: Amiodarone 150 MG in Dextrose 5% in Water 100 ML IVPB SCH (04:45)
[2020-12-31] MEDS ORDERED: Lorazepam 2 MG/ML VIAL ONE (05:02)
[2020-12-31] MEDS ORDERED: Furosemide 40 MG/4 ML VIAL ONE (05:03)
[2020-12-31] MEDS ORDERED: Furosemide 40 MG/4 ML VIAL SLOW IVP SCH (05:15)
[2020-12-31] MEDS ORDERED: Lorazepam 2 MG/ML VIAL SLOW IVP SCH (05:15)
[2020-12-31] MEDS ORDERED: Propofol 1,000 MG/100 ML VIAL IV ONE (05:45)
[2020-12-31] MEDS: Propofol 1,000 MG/100 ML VIAL IV PRN (05:50)
[2020-12-31 05:52] LABS: Base Excess (BEa) -19.5 mEq/L (-2.0 to +3.0); CO2 Tension 31.7 mmHg (35.0-45.0); Calcium, Ionized (arterial) 1.16 mmol/L (1.12-1.30); Carboxyhemoglobin (COHb) 0.3 gm% (0.0-3.0); Hemoglobin (Hb) 6.3 g/dL (14.0-18.0); O2 Tension (PaO2), arterial 375.8 mmHg (> 80.0); Potassium - ABG Lab 4.18 mmol/L (3.70-5.30)
[2020-12-31 05:54] LABS: Puncture Site LFA; pH, Arterial 7.07 (7.35-7.45)
[2020-12-31 05:55] LABS: ALV-art Gradient 297.575 mmHg (0-20)
[2020-12-31] MEDS ORDERED: Sodium Bicarb 50 MEQ/50 ML Abboject 8.4% SYRINGE ONE (05:58)
[2020-12-31] MEDS ORDERED: Morphine 2 MG/ML VIAL SLOW IVP PRN (06:00)
[2020-12-31] MEDS ORDERED: Fentanyl BOLUS 250 ML IVPB PRN (06:00)
[2020-12-31] MEDS ORDERED: Propofol BOLUS 1,000 MG/100 ML VIAL IV PRN (06:00)
[2020-12-31] MEDS ORDERED: Morphine 4 MG/ML VIAL SLOW IVP PRN (06:00)
[2020-12-31] MEDS ORDERED: Rocuronium Bromide 50 MG/5 ML VIAL IVP SCH (06:00)
[2020-12-31] MEDS ORDERED: DISCONTINUE PREVIOUS NARCOTIC PAIN MEDICATIONS AND BENZODIAZEPINES FS SCH (06:00)
[2020-12-31] MEDS ORDERED: Sodium Bicarb 50 MEQ/50 ML Abboject 8.4% SYRINGE IVP SCH (06:15)
[2020-12-31] MEDS ORDERED: Sodium Bicarbonate 150 MEQ in Dextrose 5% in Water 1,000 ML IV SCH (06:45)
[2020-12-31 07:00] LABS: Anion Gap 23 mmol/L (10-20); BUN (Urea Nitrogen) 28 mg/dL (8.4-25.7); Calc. Creatinine Clearance 40 mL/min (70-130); Calcium 7.8 mg/dL (7.8-10.44); Carbon Dioxide 13 mmol/L (23-31); Chloride 110 mmol/L (98-107); Glucose 492 mg/dL (80-115); Potassium 4.6 mmol/L (3.5-5.1); Sodium 141 mmol/L (136-145)
[2020-12-31 07:01] LABS: Lactic Acid 11.7 mmol/L (0.5-2.2)
[2020-12-31] MEDS: Lorazepam 2 MG/ML VIAL SLOW IVP PRN ×5 (07:08→21:01)
[2020-12-31] MEDS ORDERED: Amiodarone 450 MG, Admixture Fee 1 EACH in Dextrose 5% in Water 250 ML IVPB SCH (07:45)
[2020-12-31] MEDS ORDERED: Fentanyl 100 MCG/2 ML VIAL ONE (07:54)
[2020-12-31] MEDS ORDERED: Vecuronium 10 MG VIAL IVP PRN (08:00)
[2020-12-31] MEDS ORDERED: Amiodarone 450 MG in Dextrose 5% in Water 250 ML IVPB SCH (08:15)
[2020-12-31 08:24] LABS: Actual Bicarbonate (HCO3a) 20.6 mEq/L (22-28); Base Excess (BEa) -2.1 mEq/L (-2.0 to +3.0); CO2 Tension 27.4 mmHg (35.0-45.0); Calcium, Ionized (arterial) 1.05 mmol/L (1.12-1.30); Carboxyhemoglobin (COHb) 0.4 gm% (0.0-3.0); Hemoglobin (Hb) 8.4 g/dL (14.0-18.0); O2 Tension (PaO2), arterial 26.9 mmHg (> 80.0); Potassium - ABG Lab 4.63 mmol/L (3.70-5.30); pH, Arterial 7.49 (7.35-7.45)
[2020-12-31 08:25] LABS: Puncture Site Other Site
[2020-12-31] MEDS: HumaLOG 300 UNITS/3 ML VIAL SC SCH ×3 (08:30→20:47)
[2020-12-31] MEDS: Pantoprazole 40 MG VIAL IVP SCH (09:11)
[2020-12-31] MEDS: Amiodarone 200 MG TAB PO SCH (09:12)
[2020-12-31] MEDS ORDERED: Fentanyl CADD 100 ML ONE (09:19)
[2020-12-31] MEDS: Fentanyl CADD 100 ML IV SCH (09:27)
[2020-12-31] MEDS ORDERED: Sodium Chloride 0.9% 1,000 ML IV SCH (11:15)
[2020-12-31 12:06] LABS: Hemoglobin 7.5 g/dL (14.0-18.0)
[2020-12-31 12:19] LABS: Lactic Acid 2.5 mmol/L (0.5-2.2)
[2020-12-31] MEDS ORDERED: Norepinephrine 8 MG/0.9% NS 250 ML ONE (13:18)
[2020-12-31] MEDS ORDERED: Insulin Regular 300 UNITS/3 ML VIAL ONE (13:47)
[2020-12-31] MEDS ORDERED: Norepinephrine 8 MG/0.9% NS 250 ML IVPB SCH (14:00)
[2020-12-31] MEDS ORDERED: Insulin Regular 300 UNITS/3 ML VIAL IVP SCH (14:00)
[2020-12-31] MEDS: HumaLOG 300 UNITS/3 ML VIAL SC PRN ×3 (16:43→23:55)
[2020-12-31 18:17] LABS: Hemoglobin 9.1 g/dL (14.0-18.0)
[2020-12-31] MEDS: Atorvastatin Calcium 40 MG TAB PO SCH (20:45)
[2020-12-31] MEDS: Aspirin 325 MG TAB PO SCH (20:45)
[2021-01-01] MEDS: Lorazepam 2 MG/ML VIAL SLOW IVP PRN ×4 (00:17→16:30)
[2021-01-01 00:30] LABS: Hemoglobin 9.6 g/dL (14.0-18.0)
[2021-01-01 03:51] LABS: #Lymphocytes 1.7 thou/uL (1.20-3.40); #Monocytes 0.8 thou/uL (0.11-0.59); #Neutrophils 6.7 thou/uL (1.40-6.50); %Basophils 0.4 % (0.0-1.0); %Eosinophils 0.4 % (0.0-10.0); %Lymphocytes 18.2 % (21.0-51.0); %Monocytes 8.1 % (0.0-10.0); %Neutrophils 72.9 % (42.0-75.0); Hemoglobin 8.9 g/dL (14.0-18.0); Mean Corpuscular HGB CONC 35.1 g/dL (32.0-36.0); Mean Corpuscular Hemoglobin 33.2 pg (27.0-31.0); Mean Corpuscular Volume 94.6 fL (78.0-98.0); Mean Platelet Volume 8.7 fL (7.4-10.4); Platelet Count 95 thou/uL (130-400); RBC Distribution Width 15.3 % (11.5-14.5); Red Blood Cell (RBC) Count 2.67 mill/uL (4.70-6.10); White Blood Cell (WBC) Count 9.2 thou/uL (4.8-10.8)
[2021-01-01 04:10] LABS: ALT (SGPT) 32 U/L (8-55); AST (SGOT) 44 U/L (5-34); Albumin 2.9 g/dL (3.4-4.8); Alkaline Phosphatase 43 U/L (40-110); Anion Gap 10 mmol/L (10-20); BUN (Urea Nitrogen) 23 mg/dL (8.4-25.7); Bilirubin, Total 0.6 mg/dL (0.2-1.2); Calc. Creatinine Clearance 48 mL/min (70-130); Carbon Dioxide 26 mmol/L (23-31); Chloride 114 mmol/L (98-107); Globulin 2.1 g/dL (2.4-3.5); Glucose 161 mg/dL (80-115); Sodium 147 mmol/L (136-145)
[2021-01-01 04:14] LABS: Potassium 2.8 mmol/L (3.5-5.1)
[2021-01-01] MEDS: HumaLOG 300 UNITS/3 ML VIAL SC PRN ×5 (04:28→21:09)
[2021-01-01] MEDS ORDERED: Potassium Chloride 20 MEQ in Premix Bag 1 BAG IVPB SCH (05:00)
[2021-01-01] MEDS: Potassium Chloride 20 MEQ in Premix Bag 1 BAG IVPB SCH ×2 (05:49→05:50)
[2021-01-01 07:33] LABS: Base Excess (BEa) 7.6 mEq/L (-2.0 to +3.0); CO2 Tension 28.9 mmHg (35.0-45.0); Calcium, Ionized (arterial) 1.03 mmol/L (1.12-1.30); Carboxyhemoglobin (COHb) 0.3 gm% (0.0-3.0); O2 Tension (PaO2), arterial 127.7 mmHg (> 80.0); Potassium - ABG Lab 3.12 mmol/L (3.70-5.30)
[2021-01-01 07:36] LABS: ALV-art Gradient 121.375 mmHg (0-20); Puncture Site RRA; pH, Arterial 7.62 (7.35-7.45)
[2021-01-01] MEDS: HumaLOG 300 UNITS/3 ML VIAL SC SCH ×2 (08:24→18:08)
[2021-01-01] MEDS: Pantoprazole 40 MG VIAL IVP SCH (08:49)
[2021-01-01] MEDS: Amiodarone 200 MG TAB PO SCH (08:56)
[2021-01-01 10:35] LABS: Phosphorus 2.8 mg/dL (2.3-4.7)
[2021-01-01 13:55] LABS: Potassium 3.5 mmol/L (3.5-5.1)
[2021-01-01] MEDS ORDERED: Potassium Chloride 40 MEQ in Premix Bag 1 BAG IVPB SCH (14:00)
[2021-01-01] MEDS: Propofol 1,000 MG/100 ML VIAL IV PRN (17:53)
[2021-01-01] MEDS ORDERED: Fentanyl CADD 100 ML ONE (19:07)
[2021-01-01] MEDS: Atorvastatin Calcium 40 MG TAB PO SCH (21:01)
[2021-01-01] MEDS: Aspirin 325 MG TAB PO SCH (21:01)
[2021-01-02] MEDS: HumaLOG 300 UNITS/3 ML VIAL SC PRN ×4 (00:21→20:28)
[2021-01-02 04:30] LABS: ALT (SGPT) 29 U/L (8-55); AST (SGOT) 29 U/L (5-34); Albumin 2.8 g/dL (3.4-4.8); Alkaline Phosphatase 41 U/L (40-110); Anion Gap 9 mmol/L (10-20); BUN (Urea Nitrogen) 27 mg/dL (8.4-25.7); Bilirubin, Total 0.6 mg/dL (0.2-1.2); Calc. Creatinine Clearance 48 mL/min (70-130); Calcium 7.9 mg/dL (7.8-10.44); Carbon Dioxide 28 mmol/L (23-31); Chloride 115 mmol/L (98-107); Globulin 2.4 g/dL (2.4-3.5); Glucose 164 mg/dL (80-115); Potassium 4.5 mmol/L (3.5-5.1); Protein, Total 5.2 g/dL (5.8-8.1); Sodium 147 mmol/L (136-145)
[2021-01-02 04:35] LABS: #Eosinphils 0.1 thou/uL (0.0-0.7); #Lymphocytes 1.4 thou/uL (1.20-3.40); #Monocytes 0.6 thou/uL (0.11-0.59); #Neutrophils 6.9 thou/uL (1.40-6.50); %Basophils 0.3 % (0.0-1.0); %Eosinophils 0.7 % (0.0-10.0); %Lymphocytes 15.9 % (21.0-51.0); %Neutrophils 76.2 % (42.0-75.0); Hemoglobin 8.3 g/dL (14.0-18.0); Mean Corpuscular Hemoglobin 32.5 pg (27.0-31.0); Mean Corpuscular Volume 98.4 fL (78.0-98.0); Mean Platelet Volume 9.1 fL (7.4-10.4); Platelet Count 80 thou/uL (130-400); RBC Distribution Width 16.2 % (11.5-14.5); Red Blood Cell (RBC) Count 2.54 mill/uL (4.70-6.10); White Blood Cell (WBC) Count 9.1 thou/uL (4.8-10.8)
[2021-01-02] MEDS ORDERED: Fentanyl 100 MCG/2 ML VIAL ONE (06:29)
[2021-01-02] MEDS ORDERED: Midazolam HCl 2 mg/2 ml Vial ONE (06:29)
[2021-01-02] MEDS ORDERED: Protamine Sulfate 50 MG/5 ML VIAL ONE (06:31)
[2021-01-02] MEDS ORDERED: Heparin 5,000 UNITS/ML VIAL ONE (06:31)
[2021-01-02] MEDS ORDERED: Rocuronium Bromide 10 MG/ML (10ML VIAL) ONE ×2 (07:12→07:46)
[2021-01-02] MEDS ORDERED: PHENYLEPHRINE-NS 100 MCG/ML 10 ML SYRINGE ONE (07:46)
[2021-01-02] MEDS: HumaLOG 300 UNITS/3 ML VIAL SC SCH ×2 (09:33→16:00)
[2021-01-02] MEDS ORDERED: traMADol HCl 50 MG TAB PO PRN (09:35)
[2021-01-02 09:45] LABS: Actual Bicarbonate (HCO3a) 25.3 mEq/L (22-28); Base Excess (BEa) 0.2 mEq/L (-2.0 to +3.0); CO2 Tension 42.9 mmHg (35.0-45.0); Calcium, Ionized (arterial) 1.03 mmol/L (1.12-1.30); Carboxyhemoglobin (COHb) 0.2 gm% (0.0-3.0); Hemoglobin (Hb) 8.9 g/dL (14.0-18.0); O2 Tension (PaO2), arterial 76.9 mmHg (> 80.0); pH, Arterial 7.39 (7.35-7.45)
[2021-01-02 09:48] LABS: ALV-art Gradient 154.675 mmHg (0-20); Puncture Site Arterial Line
[2021-01-02] MEDS: Pantoprazole 40 MG VIAL IVP SCH (10:07)
[2021-01-02] MEDS: Amiodarone 200 MG TAB PO SCH (10:07)
[2021-01-02] MEDS: Lorazepam 2 MG/ML VIAL SLOW IVP PRN ×2 (12:15→15:34)
[2021-01-02] MEDS: ceFAZolin 1 GM/D5W 1 GM in Premix Bag 1 BAG IVPB SCH ×2 (13:19→22:50)
[2021-01-02] MEDS ORDERED: CEFAZOLIN 1 GM VIAL SLOW IVP SCH (14:00)
[2021-01-02] MEDS: Fentanyl CADD 100 ML IV SCH (15:38)
[2021-01-02] MEDS: Atorvastatin Calcium 40 MG TAB PO SCH (20:27)
[2021-01-02] MEDS: Aspirin 325 MG TAB PO SCH (20:27)
[2021-01-03] MEDS: HumaLOG 300 UNITS/3 ML VIAL SC PRN ×2 (00:12→05:46)
[2021-01-03 05:17] LABS: #Eosinphils 0.2 thou/uL (0.0-0.7); #Lymphocytes 1.1 thou/uL (1.20-3.40); #Monocytes 0.6 thou/uL (0.11-0.59); #Neutrophils 5.2 thou/uL (1.40-6.50); %Basophils 0.4 % (0.0-1.0); %Eosinophils 2.1 % (0.0-10.0); %Lymphocytes 15.7 % (21.0-51.0); %Monocytes 8.2 % (0.0-10.0); %Neutrophils 73.6 % (42.0-75.0); Hemoglobin 7.5 g/dL (14.0-18.0); Mean Corpuscular HGB CONC 31.8 g/dL (32.0-36.0); Mean Platelet Volume 9.2 fL (7.4-10.4); Platelet Count 84 thou/uL (130-400); RBC Distribution Width 15.8 % (11.5-14.5); Red Blood Cell (RBC) Count 2.33 mill/uL (4.70-6.10)
[2021-01-03 05:23] LABS: ALT (SGPT) 18 U/L (8-55); AST (SGOT) 23 U/L (5-34); Albumin 2.7 g/dL (3.4-4.8); Alkaline Phosphatase 48 U/L (40-110); Anion Gap 11 mmol/L (10-20); BUN (Urea Nitrogen) 39 mg/dL (8.4-25.7); Bilirubin, Total 0.5 mg/dL (0.2-1.2); Calc. Creatinine Clearance 38 mL/min (70-130); Calcium 7.2 mg/dL (7.8-10.44); Carbon Dioxide 25 mmol/L (23-31); Chloride 113 mmol/L (98-107); Globulin 2.3 g/dL (2.4-3.5); Glucose 195 mg/dL (80-115); Potassium 4.2 mmol/L (3.5-5.1); Sodium 145 mmol/L (136-145)
[2021-01-03] MEDS: ceFAZolin 1 GM/D5W 1 GM in Premix Bag 1 BAG IVPB SCH ×3 (05:47→22:10)
[2021-01-03 06:54] LABS: Actual Bicarbonate (HCO3a) 25.4 mEq/L (22-28); Base Excess (BEa) 0.1 mEq/L (-2.0 to +3.0); CO2 Tension 44.6 mmHg (35.0-45.0); Calcium, Ionized (arterial) 1.03 mmol/L (1.12-1.30); Carboxyhemoglobin (COHb) 0.3 gm% (0.0-3.0); Hemoglobin (Hb) 7.6 g/dL (14.0-18.0); O2 Tension (PaO2), arterial 127.7 mmHg (> 80.0); Potassium - ABG Lab 4.16 mmol/L (3.70-5.30); pH, Arterial 7.37 (7.35-7.45)
[2021-01-03 06:57] LABS: Puncture Site RRA
[2021-01-03] MEDS: Amiodarone 200 MG TAB PO SCH (09:07)
[2021-01-03] MEDS: Pantoprazole 40 MG VIAL IVP SCH (09:07)
[2021-01-03] MEDS: HumaLOG 300 UNITS/3 ML VIAL SC SCH ×2 (09:08→17:43)
[2021-01-03] MEDS ORDERED: Furosemide 20 MG/2 ML VIAL SLOW IVP SCH (11:30)
[2021-01-03 15:37] LABS: Bacteria/HPF 2+ HPF (None Seen); Bilirubin Negative (Negative); Blood, Urine 3+ (Negative); Clarity Clear (Clear); Glucose, Urine (Dipstick) 70 mg/dL (Negative); Ketone, Urine Negative (Negative); Leukocyte 25 Leu/uL (Negative); Nitrite Negative (Negative); Protein, Urine (Dipstick) 30 mg/dL (Neg-Trace); RBC/HPF Greater than 50 HPF (0-3); Specific Gravity, Urine 1.014 (1.002-1.036); Squamous Epithelial None Seen HPF (0-3); Urobilinogen Normal mg/dL (Less than 2); pH, Urine 5.5 (5.0-9.0)
[2021-01-03 15:50] LABS: Creatinine, Urine 89.34 mg/dL (63-166); Sodium, Urine Less than 20 mmol/L (Not Available)
[2021-01-03] MEDS: Atorvastatin Calcium 40 MG TAB PO SCH ×2 (21:00→21:28)
[2021-01-03] MEDS: Aspirin 325 MG TAB PO SCH ×2 (21:00→21:28)
[2021-01-03] MEDS: Carvedilol 3.125 MG TAB PO SCH (21:28)
[2021-01-04] MEDS: HumaLOG 300 UNITS/3 ML VIAL SC PRN ×4 (00:51→20:46)
[2021-01-04 04:37] LABS: #Lymphocytes 0.8 thou/uL (1.20-3.40); #Monocytes 0.6 thou/uL (0.11-0.59); #Neutrophils 7.1 thou/uL (1.40-6.50); %Basophils 0.3 % (0.0-1.0); %Eosinophils 0.2 % (0.0-10.0); %Lymphocytes 9.5 % (21.0-51.0); %Monocytes 7.3 % (0.0-10.0); %Neutrophils 82.7 % (42.0-75.0); Hemoglobin 8.3 g/dL (14.0-18.0); Mean Corpuscular HGB CONC 32.3 g/dL (32.0-36.0); Mean Corpuscular Hemoglobin 32.3 pg (27.0-31.0); Mean Platelet Volume 9.5 fL (7.4-10.4); Platelet Count 98 thou/uL (130-400); RBC Distribution Width 15.2 % (11.5-14.5); Red Blood Cell (RBC) Count 2.57 mill/uL (4.70-6.10); White Blood Cell (WBC) Count 8.6 thou/uL (4.8-10.8)
[2021-01-04 04:58] LABS: ALT (SGPT) 26 U/L (8-55); AST (SGOT) 88 U/L (5-34); Alkaline Phosphatase 58 U/L (40-110); Anion Gap 10 mmol/L (10-20); BUN (Urea Nitrogen) 44 mg/dL (8.4-25.7); Bilirubin, Total 0.5 mg/dL (0.2-1.2); Calc. Creatinine Clearance 39 mL/min (70-130); Calcium 8.4 mg/dL (7.8-10.44); Carbon Dioxide 28 mmol/L (23-31); Chloride 114 mmol/L (98-107); Globulin 2.8 g/dL (2.4-3.5); Glucose 257 mg/dL (80-115); Potassium 3.8 mmol/L (3.5-5.1); Protein, Total 5.8 g/dL (5.8-8.1); Sodium 148 mmol/L (136-145)
[2021-01-04 07:31] LABS: Actual Bicarbonate (HCO3a) 25.3 mEq/L (22-28); Base Excess (BEa) 0.7 mEq/L (-2.0 to +3.0); CO2 Tension 40.9 mmHg (35.0-45.0); Carboxyhemoglobin (COHb) 0.5 gm% (0.0-3.0); Hemoglobin (Hb) 8.6 g/dL (14.0-18.0); O2 Tension (PaO2), arterial 83.7 mmHg (> 80.0); Potassium - ABG Lab 3.61 mmol/L (3.70-5.30); pH, Arterial 7.41 (7.35-7.45)
[2021-01-04 07:34] LABS: ALV-art Gradient 79.075 mmHg (0-20); Puncture Site LRA
[2021-01-04] MEDS: Carvedilol 3.125 MG TAB PO SCH ×2 (10:05→20:42)
[2021-01-04] MEDS: HumaLOG 300 UNITS/3 ML VIAL SC SCH ×2 (10:05→17:40)
[2021-01-04] MEDS: Pantoprazole 40 MG VIAL IVP SCH (10:05)
[2021-01-04] MEDS: Amiodarone 200 MG TAB PO SCH (10:05)
[2021-01-04] MEDS ORDERED: Dextrose 5% w/ 20 mEq KCl 1,000 ML IV SCH (15:00)
[2021-01-04] MEDS: Piperacillin/Tazobactam 3.375 GM in Sodium Chloride 0.9% 100 ML IVPB SCH (17:40)
[2021-01-04] MEDS: Atorvastatin Calcium 40 MG TAB PO SCH (20:42)
[2021-01-04] MEDS: Aspirin 325 MG TAB PO SCH (20:42)
[2021-01-05] MEDS: Piperacillin/Tazobactam 3.375 GM in Sodium Chloride 0.9% 100 ML IVPB SCH ×3 (00:04→15:22)
[2021-01-05] MEDS: HumaLOG 300 UNITS/3 ML VIAL SC PRN ×6 (00:08→20:24)
[2021-01-05 04:04] LABS: ALT (SGPT) 32 U/L (8-55); AST (SGOT) 84 U/L (5-34); Albumin 2.8 g/dL (3.4-4.8); Alkaline Phosphatase 61 U/L (40-110); Anion Gap 10 mmol/L (10-20); BUN (Urea Nitrogen) 34 mg/dL (8.4-25.7); Bilirubin, Total 0.7 mg/dL (0.2-1.2); Calc. Creatinine Clearance 47 mL/min (70-130); Calcium 8.1 mg/dL (7.8-10.44); Carbon Dioxide 28 mmol/L (23-31); Chloride 116 mmol/L (98-107); Globulin 2.9 g/dL (2.4-3.5); Glucose 254 mg/dL (80-115); Protein, Total 5.7 g/dL (5.8-8.1); Sodium 150 mmol/L (136-145)
[2021-01-05 04:05] LABS: #Lymphocytes 0.7 thou/uL (1.20-3.40); #Monocytes 0.5 thou/uL (0.11-0.59); #Neutrophils 5.2 thou/uL (1.40-6.50); %Basophils 0.2 % (0.0-1.0); %Eosinophils 0.7 % (0.0-10.0); %Lymphocytes 10.2 % (21.0-51.0); %Monocytes 8.3 % (0.0-10.0); %Neutrophils 80.7 % (42.0-75.0); Hemoglobin 8.9 g/dL (14.0-18.0); Mean Platelet Volume 9.4 fL (7.4-10.4); Platelet Count 107 thou/uL (130-400); RBC Distribution Width 14.8 % (11.5-14.5); Red Blood Cell (RBC) Count 2.71 mill/uL (4.70-6.10); White Blood Cell (WBC) Count 6.5 thou/uL (4.8-10.8)
[2021-01-05] MEDS: Amiodarone 200 MG TAB PO SCH (07:13)
[2021-01-05] MEDS: Pantoprazole 40 MG VIAL IVP SCH (07:13)
[2021-01-05] MEDS: Carvedilol 3.125 MG TAB PO SCH ×2 (07:13→21:23)
[2021-01-05] MEDS: HumaLOG 300 UNITS/3 ML VIAL SC SCH ×2 (07:14→15:28)
[2021-01-05] MEDS: Dextrose 5% in Water 1,000 ML IV SCH ×2 (07:48→21:34)
[2021-01-05] MEDS: Thiamine HCl 200 MG/2 ML VIAL SLOW IVP SCH (08:27)
[2021-01-05] MEDS ORDERED: Furosemide 40 MG/4 ML VIAL SLOW IVP SCH (10:30)
[2021-01-05] MEDS: Atorvastatin Calcium 40 MG TAB PO SCH (21:23)
[2021-01-05] MEDS: Aspirin 325 MG TAB PO SCH (21:23)
[2021-01-05] MEDS: Lantus 1000 UNITS/10 ML VIAL SC SCH (22:56)
[2021-01-06] MEDS: Piperacillin/Tazobactam 3.375 GM in Sodium Chloride 0.9% 100 ML IVPB SCH ×3 (00:39→15:26)
[2021-01-06] MEDS: HumaLOG 300 UNITS/3 ML VIAL SC PRN ×5 (00:40→20:26)
[2021-01-06 04:46] LABS: #Eosinphils 0.1 thou/uL (0.0-0.7); #Lymphocytes 1.1 thou/uL (1.20-3.40); #Monocytes 0.6 thou/uL (0.11-0.59); #Neutrophils 5.5 thou/uL (1.40-6.50); %Basophils 0.3 % (0.0-1.0); %Eosinophils 0.9 % (0.0-10.0); %Lymphocytes 14.6 % (21.0-51.0); %Monocytes 8.1 % (0.0-10.0); %Neutrophils 76.2 % (42.0-75.0); Hemoglobin 7.8 g/dL (14.0-18.0); Mean Corpuscular HGB CONC 32.5 g/dL (32.0-36.0); Mean Corpuscular Hemoglobin 32.6 pg (27.0-31.0); Mean Platelet Volume 9.8 fL (7.4-10.4); Platelet Count 126 thou/uL (130-400); RBC Distribution Width 14.8 % (11.5-14.5); White Blood Cell (WBC) Count 7.3 thou/uL (4.8-10.8)
[2021-01-06 05:09] LABS: ALT (SGPT) 271 U/L (8-55); AST (SGOT) 470 U/L (5-34); Albumin 2.6 g/dL (3.4-4.8); Alkaline Phosphatase 125 U/L (40-110); Anion Gap 12 mmol/L (10-20); BUN (Urea Nitrogen) 34 mg/dL (8.4-25.7); Bilirubin, Total 0.9 mg/dL (0.2-1.2); Calc. Creatinine Clearance 44 mL/min (70-130); Calcium 7.7 mg/dL (7.8-10.44); Carbon Dioxide 28 mmol/L (23-31); Chloride 113 mmol/L (98-107); Glucose 272 mg/dL (80-115); Potassium 3.5 mmol/L (3.5-5.1); Protein, Total 5.6 g/dL (5.8-8.1); Sodium 149 mmol/L (136-145)
[2021-01-06] MEDS: HumaLOG 300 UNITS/3 ML VIAL SC SCH ×2 (07:47→15:27)
[2021-01-06] MEDS: Amiodarone 200 MG TAB PO SCH (07:47)
[2021-01-06] MEDS: Carvedilol 3.125 MG TAB PO SCH ×2 (07:47→20:53)
[2021-01-06] MEDS: Pantoprazole 40 MG VIAL IVP SCH (07:48)
[2021-01-06] MEDS: Lantus 1000 UNITS/10 ML VIAL SC SCH ×2 (07:49→20:26)
[2021-01-06] MEDS: Thiamine HCl 200 MG/2 ML VIAL SLOW IVP SCH (07:55)
[2021-01-06] MEDS: Atorvastatin Calcium 40 MG TAB PO SCH (20:27)
[2021-01-06] MEDS: Aspirin 325 MG TAB PO SCH (20:27)
[2021-01-07] MEDS: HumaLOG 300 UNITS/3 ML VIAL SC PRN ×5 (00:16→16:20)
[2021-01-07] MEDS: Piperacillin/Tazobactam 3.375 GM in Sodium Chloride 0.9% 100 ML IVPB SCH ×4 (00:19→23:08)
[2021-01-07 04:33] LABS: #Lymphocytes 1.2 thou/uL (1.20-3.40); #Neutrophils 6.7 thou/uL (1.40-6.50); %Basophils 0.2 % (0.0-1.0); %Eosinophils 0.3 % (0.0-10.0); %Lymphocytes 13.3 % (21.0-51.0); %Monocytes 8.6 % (0.0-10.0); %Neutrophils 77.7 % (42.0-75.0); Mean Corpuscular HGB CONC 31.9 g/dL (32.0-36.0); Mean Corpuscular Hemoglobin 31.9 pg (27.0-31.0); Mean Platelet Volume 9.5 fL (7.4-10.4); Platelet Count 145 thou/uL (130-400); Red Blood Cell (RBC) Count 2.51 mill/uL (4.70-6.10); White Blood Cell (WBC) Count 8.7 thou/uL (4.8-10.8)
[2021-01-07 04:34] LABS: #Monocytes 0.8 thou/uL (0.11-0.59)
[2021-01-07 05:21] LABS: ALT (SGPT) 178 U/L (8-55); AST (SGOT) 195 U/L (5-34); Albumin 2.5 g/dL (3.4-4.8); Alkaline Phosphatase 109 U/L (40-110); Anion Gap 14 mmol/L (10-20); BUN (Urea Nitrogen) 44 mg/dL (8.4-25.7); Bilirubin, Total 0.7 mg/dL (0.2-1.2); Calc. Creatinine Clearance 38 mL/min (70-130); Calcium 7.3 mg/dL (7.8-10.44); Carbon Dioxide 27 mmol/L (23-31); Chloride 114 mmol/L (98-107); Glucose 186 mg/dL (80-115); Potassium 3.7 mmol/L (3.5-5.1); Protein, Total 5.5 g/dL (5.8-8.1); Sodium 151 mmol/L (136-145)
[2021-01-07] MEDS: Amiodarone 200 MG TAB PO SCH (08:00)
[2021-01-07] MEDS: Carvedilol 3.125 MG TAB PO SCH ×2 (08:00→20:32)
[2021-01-07] MEDS: HumaLOG 300 UNITS/3 ML VIAL SC SCH ×2 (08:01→16:19)
[2021-01-07] MEDS: Pantoprazole 40 MG VIAL IVP SCH (08:01)
[2021-01-07] MEDS: Lantus 1000 UNITS/10 ML VIAL SC SCH ×2 (08:06→20:35)
[2021-01-07] MEDS: Dextrose 5% in Water 1,000 ML IV SCH ×3 (09:11→20:36)
[2021-01-07] MEDS: Thiamine HCl 200 MG/2 ML VIAL SLOW IVP SCH (12:05)
[2021-01-07 12:32] VITALS: BMI 28.8
[2021-01-07 15:12] LABS: Sodium 145 mmol/L (136-145)
[2021-01-07] MEDS: Aspirin 325 MG TAB PO SCH (20:32)
[2021-01-07] MEDS: Lorazepam 2 MG/ML VIAL SLOW IVP PRN ×2 (20:34→23:07)
[2021-01-08] MEDS: Carvedilol 3.125 MG TAB PO SCH (05:03)
[2021-01-08 06:08] LABS: #Eosinphils 0.1 thou/uL (0.0-0.7); #Lymphocytes 1.1 thou/uL (1.20-3.40); #Neutrophils 10.3 thou/uL (1.40-6.50); %Basophils 0.1 % (0.0-1.0); %Eosinophils 0.7 % (0.0-10.0); %Lymphocytes 8.9 % (21.0-51.0); %Monocytes 7.7 % (0.0-10.0); %Neutrophils 82.6 % (42.0-75.0); Hemoglobin 8.1 g/dL (14.0-18.0); Mean Corpuscular HGB CONC 31.6 g/dL (32.0-36.0); Mean Platelet Volume 9.8 fL (7.4-10.4); Platelet Count 177 thou/uL (130-400); RBC Distribution Width 15.1 % (11.5-14.5); Red Blood Cell (RBC) Count 2.54 mill/uL (4.70-6.10); White Blood Cell (WBC) Count 12.5 thou/uL (4.8-10.8)
[2021-01-08] MEDS ORDERED: PHENYLEPHRINE-NS 100 MCG/ML 10 ML SYRINGE ONE (07:47)
[2021-01-08 08:05] VITALS: BP 98/55; TEMP 97.3
[2021-01-08 09:08] LABS: Actual Bicarbonate (HCO3a) 22.6 mEq/L (22-28); Analyzer IN Cardio OR; Base Excess (BEa) -1.2 mEq/L (-2.0 to +3.0); CO2 Tension 33.5 mmHg (35.0-45.0); Calcium, Ionized (arterial) 1.03 mmol/L (1.12-1.30); Carboxyhemoglobin (COHb) 0.4 gm% (0.0-3.0); Hemoglobin (Hb) 8.5 g/dL (14.0-18.0); O2 Tension (PaO2), arterial 286.4 mmHg (> 80.0); Potassium - ABG Lab 3.93 mmol/L (3.70-5.30); pH, Arterial 7.45 (7.35-7.45)
[2021-01-08 09:11] LABS: Puncture Site Arterial Line
[2021-01-08] MEDS ORDERED: Morphine 4 MG/ML VIAL SLOW IVP PRN (11:24)
[2021-01-08] MEDS ORDERED: Scopolamine 1.5 mg/72 hour Patch TOP PRN ×2 (14:00)
[2021-01-08] MEDS ORDERED: chlorproMAZINE HCl 25 MG in Sodium Chloride 0.9% 50 ML IVPB PRN (14:00)
[2021-01-08] MEDS ORDERED: Lorazepam 1 MG TAB PO PRN ×2 (14:00)
[2021-01-08] MEDS ORDERED: Haloperidol 1 MG TAB PO PRN (14:00)
[2021-01-08] MEDS ORDERED: Ondansetron PF 4 MG/2 ML Vial IVP PRN (14:00)
[2021-01-08] MEDS ORDERED: Senokot 8.6 MG TAB PO PRN (14:00)
[2021-01-08] MEDS ORDERED: Morphine 10 MG/0.5 ML ORAL SYRINGE SL PRN (14:00)
[2021-01-08] MEDS ORDERED: Ondansetron ODT 4 MG TAB PO PRN (14:00)
[2021-01-08] MEDS ORDERED: Milk Of Magnesia 30 ML UDCUP PO PRN (14:00)
[2021-01-08] MEDS ORDERED: diphenhydrAMINE 25 MG CAP PO PRN (14:00)
[2021-01-08] MEDS ORDERED: Haloperidol Lactate 5 MG/ML VIAL SLOW IVP PRN (14:00)
[2021-01-08] MEDS ORDERED: diphenhydrAMINE 50 MG/ML VIAL IVP PRN (14:00)
[2021-01-08] MEDS ORDERED: Acetaminophen 325 MG TAB PO PRN (14:00)
[2021-01-08] MEDS ORDERED: Loperamide HCl 2 MG CAP PO PRN (14:00)
[2021-01-08] MEDS ORDERED: Promethazine HCl 25 MG SUPP PR PRN (14:00)
[2021-01-08] MEDS ORDERED: Hyoscyamine Sulfate SL 0.125 mg Tablet SL PRN (14:00)
[2021-01-08] MEDS ORDERED: Acetaminophen 650 MG Suppository PR PRN (14:00)
[2021-01-08] MEDS ORDERED: chlorproMAZINE HCl 50 MG/2 ML AMP IM PRN ×2 (14:00)
[2021-01-08] MEDS ORDERED: ALPRAZolam 0.25 MG TAB PO PRN (14:00)
[2021-01-08] MEDS ORDERED: Lorazepam 2 MG/ML VIAL SLOW IVP PRN ×2 (14:00)
[2021-01-08] MEDS ORDERED: Zolpidem Tartrate 5 MG TAB PO PRN (14:00)
[2021-01-08] MEDS ORDERED: Fentanyl 100 MCG/2 ML VIAL SLOW IVP PRN (14:01)
[2021-01-08] MEDS ORDERED: Morphine IR 10 MG/5 ML UDCUP PO PRN (14:19)
== END 2021-01-08 13:50 | disposition hospice, inpatient (51) | DRG 37 ==
LOC: ERS 13:02 → CCU 14:26 → ONC 01-07 17:56
PROVIDERS: ADMIT Emergency Medicine; ATTEND Internal Medicine
PROC: 3E03317 Introduction of Other Thrombolytic into Peripheral Vein, Percutaneous Approach (ICD-10-PCS; 2020-12-29)
PROC: 30233N1 Transfusion of Nonautologous Red Blood Cells into Peripheral Vein, Percutaneous Approach (ICD-10-PCS; 2020-12-29)
PROC: 0BH17EZ Insertion of Endotracheal Airway into Trachea, Via Natural or Artificial Opening (ICD-10-PCS; 2020-12-31)
PROC: 5A12012 Performance of Cardiac Output, Single, Manual (ICD-10-PCS; 2020-12-31)
PROC: 5A1945Z Respiratory Ventilation, 24-96 Consecutive Hours (ICD-10-PCS; 2020-12-31)
PROC: 0D9670Z Drainage of Stomach with Drainage Device, Via Natural or Artificial Opening (ICD-10-PCS; 2020-12-31)
PROC: 03CK0ZZ Extirpation of Matter from Right Internal Carotid Artery, Open Approach (ICD-10-PCS; principal; 2021-01-02)
PROC: 03UK0KZ Supplement Right Internal Carotid Artery with Nonautologous Tissue Substitute, Open Approach (ICD-10-PCS; 2021-01-02)
DX: I63.81 Other cerebral infarction due to occlusion or stenosis of small artery (principal); I50.43 Acute on chronic combined systolic (congestive) and diastolic (congestive) heart failure; J96.21 Acute and chronic respiratory failure with hypoxia; G93.41 Metabolic encephalopathy; I46.9 Cardiac arrest, cause unspecified; J69.0 Pneumonitis due to inhalation of food and vomit; G81.04 Flaccid hemiplegia affecting left nondominant side; I25.810 Atherosclerosis of coronary artery bypass graft(s) without angina pectoris; N18.4 Chronic kidney disease, stage 4 (severe); I13.0 Hypertensive heart and chronic kidney disease with heart failure and stage 1 through stage 4 chronic kidney disease, or unspecified chronic kidney disease; N17.9 Acute kidney failure, unspecified; D62 Acute posthemorrhagic anemia; E87.2 Acidosis; I47.2 Ventricular tachycardia; M86.172 Other acute osteomyelitis, left ankle and foot; E87.3 Alkalosis; E87.0 Hyperosmolality and hypernatremia; G93.1 Anoxic brain damage, not elsewhere classified; Z20.822 Contact with and (suspected) exposure to COVID-19; Z66 Do not resuscitate; Z51.5 Encounter for palliative care; R47.81 Slurred speech; R29.712 NIHSS score 12; E78.5 Hyperlipidemia, unspecified; E78.00 Pure hypercholesterolemia, unspecified; E78.1 Pure hyperglyceridemia; E11.51 Type 2 diabetes mellitus with diabetic peripheral angiopathy without gangrene; F17.210 Nicotine dependence, cigarettes, uncomplicated; F17.290 Nicotine dependence, other tobacco product, uncomplicated; R29.810 Facial weakness; E11.22 Type 2 diabetes mellitus with diabetic chronic kidney disease; R13.12 Dysphagia, oropharyngeal phase; I65.23 Occlusion and stenosis of bilateral carotid arteries; I25.5 Ischemic cardiomyopathy; E11.65 Type 2 diabetes mellitus with hyperglycemia; I49.9 Cardiac arrhythmia, unspecified; D63.1 Anemia in chronic kidney disease; G93.89 Other specified disorders of brain; E87.6 Hypokalemia; E11.69 Type 2 diabetes mellitus with other specified complication; Z78.1 Physical restraint status; Z79.01 Long term (current) use of anticoagulants; Z79.899 Other long term (current) drug therapy; Z79.4 Long term (current) use of insulin; Z98.890 Other specified postprocedural states; Z95.810 Presence of automatic (implantable) cardiac defibrillator; Z95.1 Presence of aortocoronary bypass graft
CPT/HCPCS: 0240U; 36415; 36416; 36430; 36600; 70450; 70496; 70498; 71045; 76770; 80053; 80061; 81003; 81015; 82550; 82570; 82805; 83036; 83605; 83735; 83880; 84100; 84300; 84443; 84484; 85014; 85018; 85025; 85610; 85730; 86850; 86900; 86901; 87040; 87086; 93005; 93010; 93306; 94002; 94003; 94640; 94660; 94760; 95712; 95819; 95957; 96365; 96376; 99292; C9113; J0282; J0690; J1642; J1644; J1650; J1815; J1940; J2060; J2250; J2270; J2543; J2704; J2720; J2997; J3010; J3411; J3480; J3490; J7070; J7620; P9016; Q9967

== ENCOUNTER 2021-01-08 14:34 | Inpatient (IN) | payer OTHER ==
[2021-01-08] MEDS ORDERED: diphenhydrAMINE 25 MG CAP PO PRN (15:00)
[2021-01-08] MEDS ORDERED: Haloperidol Lactate 5 MG/ML VIAL SLOW IVP PRN (15:00)
[2021-01-08] MEDS ORDERED: Loperamide HCl 2 MG CAP PO PRN (15:00)
[2021-01-08] MEDS ORDERED: Zolpidem Tartrate 5 MG TAB PO PRN (15:00)
[2021-01-08] MEDS ORDERED: Milk Of Magnesia 30 ML UDCUP PO PRN (15:00)
[2021-01-08] MEDS ORDERED: chlorproMAZINE HCl 50 MG/2 ML AMP IM PRN ×2 (15:00)
[2021-01-08] MEDS ORDERED: Acetaminophen 650 MG Suppository PR PRN (15:00)
[2021-01-08] MEDS ORDERED: Lorazepam 1 MG TAB PO PRN ×2 (15:00)
[2021-01-08] MEDS ORDERED: Haloperidol 1 MG TAB PO PRN (15:00)
[2021-01-08] MEDS ORDERED: Hyoscyamine Sulfate SL 0.125 mg Tablet SL PRN (15:00)
[2021-01-08] MEDS ORDERED: Scopolamine 1.5 mg/72 hour Patch TOP PRN ×2 (15:00)
[2021-01-08] MEDS ORDERED: chlorproMAZINE HCl 25 MG in Sodium Chloride 0.9% 50 ML IVPB PRN (15:00)
[2021-01-08] MEDS ORDERED: diphenhydrAMINE 50 MG/ML VIAL IVP PRN (15:00)
[2021-01-08] MEDS ORDERED: Morphine 10 MG/0.5 ML ORAL SYRINGE SL PRN (15:00)
[2021-01-08] MEDS ORDERED: Promethazine HCl 25 MG SUPP PR PRN (15:00)
[2021-01-08] MEDS ORDERED: Ondansetron PF 4 MG/2 ML Vial IVP PRN (15:00)
[2021-01-08] MEDS ORDERED: Lorazepam 2 MG/ML VIAL SLOW IVP PRN ×2 (15:00)
[2021-01-08] MEDS ORDERED: Ondansetron ODT 4 MG TAB PO PRN (15:00)
[2021-01-08] MEDS ORDERED: Acetaminophen 325 MG TAB PO PRN (15:00)
[2021-01-08] MEDS ORDERED: Fentanyl 100 MCG/2 ML VIAL SLOW IVP PRN (15:01)
== END 2021-01-08 19:04 | disposition expired | DRG 951 ==
LOC: ONC 14:34
PROVIDERS: ADMIT Internal Medicine Hospice and Palliative Medicine; ATTEND Internal Medicine Hospice and Palliative Medicine
DX: Z51.5 Encounter for palliative care (principal); I63.9 Cerebral infarction, unspecified; J69.0 Pneumonitis due to inhalation of food and vomit; Z66 Do not resuscitate; G81.94 Hemiplegia, unspecified affecting left nondominant side; I25.810 Atherosclerosis of coronary artery bypass graft(s) without angina pectoris; I50.42 Chronic combined systolic (congestive) and diastolic (congestive) heart failure; N18.4 Chronic kidney disease, stage 4 (severe); I13.0 Hypertensive heart and chronic kidney disease with heart failure and stage 1 through stage 4 chronic kidney disease, or unspecified chronic kidney disease; G93.1 Anoxic brain damage, not elsewhere classified; R29.810 Facial weakness; E11.22 Type 2 diabetes mellitus with diabetic chronic kidney disease; E11.51 Type 2 diabetes mellitus with diabetic peripheral angiopathy without gangrene; F17.210 Nicotine dependence, cigarettes, uncomplicated; E78.5 Hyperlipidemia, unspecified; I65.21 Occlusion and stenosis of right carotid artery; Z79.82 Long term (current) use of aspirin; Z79.4 Long term (current) use of insulin; Z79.02 Long term (current) use of antithrombotics/antiplatelets; Z79.899 Other long term (current) drug therapy; Z98.890 Other specified postprocedural states
CPT/HCPCS: J3010